=== PATIENT | female | born 1960 | race Caucasian/White ===

== ENCOUNTER → 2016-10-25 | Outpatient (CLI) | payer MEDICARE, MEDICAID | LOC: OD 13:58 | PROVIDERS: ATTEND Specialist | DX: Z79.01 Long term (current) use of anticoagulants (principal) | CPT/HCPCS: 36415; 85610 ==

== ENCOUNTER → 2016-11-22 | Outpatient (CLI) | payer MEDICARE, MEDICAID | LOC: OD 14:06 | PROVIDERS: ATTEND Specialist | DX: I34.1 Nonrheumatic mitral (valve) prolapse (principal); Z79.01 Long term (current) use of anticoagulants | CPT/HCPCS: 36415; 85610 ==

== ENCOUNTER → 2016-12-15 | Outpatient (CLI) | payer MEDICARE, MEDICAID ==
[2016-12-15 14:41] LABS: PROTHROMBIN TIME 26.4 SEC (11.4-15.4)
== END ==
LOC: OD 13:41
PROVIDERS: ATTEND Specialist
DX: Z79.01 Long term (current) use of anticoagulants (principal); I34.1 Nonrheumatic mitral (valve) prolapse
CPT/HCPCS: 36415; 85610

== ENCOUNTER 2017-07-30 12:01 | Inpatient (IN) | payer MEDICARE, MEDICAID ==
--- NOTE | 2017-07-30 14:06 | ER Document Report ---
ED Fall - General Chief Complaint: Fall Stated Complaint: FALL,ANKLE PAIN Time Seen by Provider: 07/30/17 13:57 Mode of Arrival: Medic Information source: Patient, Relative, Emergency Med Personnel TRAVEL OUTSIDE OF THE [place] IN LAST 30 DAYS: No - HPI Occurred: Just prior to arrival Where: Home Context: Fell from standing - PATIENT IS NON-AMBULATORY, WAS MAKING TRANSFER, BEING ASSISTED BY ELDERLY PARENT WHO SLIPPED & PATIENT FELL Associated symptoms: Difficulty breathing. denies: Lost consciousness Location of injury/pain: Ankle - RIGHT, Foot - RIGHT Quality of pain: Sharp Severity: Moderate - Related data Allergies/Adverse Reactions: No Known Allergies Allergy (Verified 10/22/14 04:46) Past Medical History - General Information source: Relative, [facility] Records - Social History Smoking Status: Unknown if Ever Smoked Frequency of alcohol use: None Drug Abuse: None Lives with: Family Family History: Reviewed & Not Pertinent Patient has suicidal ideation: No Patient has homicidal ideation: No - Past Medical History Cardiac Medical History: Reports: Hx Hypertension Pulmonary Medical History: Reports: Hx COPD - ON C-PAP PRN, USES IT EXTENSIVELY EENT Medical History: Reports: None Neurological Medical History: Reports: None Endocrine Medical History: Reports: Hx Hypothyroidism Renal/ Medical History: Denies: Hx Peritoneal Dialysis Malignancy Medical History: Reports: None GI Medical History: Reports: None Musculoskeltal Medical History: Reports Hx Muscular Dystrophy Skin Medical History: Reports None Psychiatric Medical History: Reports: None Past Surgical History: Reports: Hx Section - x2, Hx Cholecystectomy, Hx Thyroid Surgery - Immunizations Hx Diphtheria, Pertussis, Tetanus Vaccination: Yes Review of Systems - Review of Systems Constitutional: No symptoms reported EENT: No symptoms reported Cardiovascular: No symptoms reported. denies: Chest pain Respiratory: See HPI, Short of breath Gastrointestinal: No symptoms reported Genitourinary: No symptoms reported Female Genitourinary: No symptoms reported Musculoskeletal: See HPI Skin: No symptoms reported Neurological/Psychological: Weakness Physical Exam - Vital signs Vitals: Resp 19 07/30/17 12:07 - General General appearance: Appears well, Alert In distress: None - HEENT Head: Normocephalic Eyes: Normal Conjunctiva: Normal Ears: Normal Nasal: Normal Mouth/Lips: Normal Mucous membranes: Normal Pharynx: Normal Neck: Normal - Extremities General upper extremity: Normal inspection General lower extremity: No: Normal inspection - R. FOOT & ANKLE Ankle: Tender - OVER LAT. MALLEOLUS & TALOFIB. LIGAMENTS, Edema Foot: Tender - METATARSALS, Edema Course - Vital Signs Vital signs: Temp Pulse Resp BP Pulse Ox 98.3 F 95 22 H 94 07/30/17 12:16 07/30/17 12:16 07/30/17 13:13 07/30/17 13:13 - Laboratory Result Diagrams: 07/30/17 12:10 07/30/17 12:10 Laboratory results interpreted by me: 07/30/17 07/30/17 07/30/17 12:10 12:10 14:30 RBC 5.93 H Hgb 17.0 H Hct 52.1 H RDW 18.1 H VBG pCO2 74.9 H* VBG HCO3 37.2 H Sodium 146.2 H Carbon Dioxide 37 H Calcium 10.8 H AST 41 H Alkaline Phosphatase 128 H - EKG Interpretation by Me EKG shows normal: Sinus rhythm Rate: Normal Rhythm: NSR [place]/QRS: RBBB, LAHB/LAFB Heart block present: 1st Degree - Consults DR. DYE Time consulted: 15:54 Consulted provider: will come to ER Discharge - Discharge Clinical Impression: Generalized muscle weakness Tibia fracture Qualifiers: Encounter type: initial encounter Tibia location: shaft Fracture type: closed Fracture morphology: transverse Fracture alignment: nondisplaced Laterality: right Qualified Code(s): S82.224A - Nondisplaced transverse fracture of shaft of right tibia, initial encounter for closed fracture Fibula fracture Qualifiers: Encounter type: initial encounter Fibula location: distal Fracture type: closed Fracture morphology: unspecified fracture morphology Laterality: right Qualified Code(s): S82.831A - Other fracture of upper and lower end of right fibula, initial encounter for closed fracture Condition: Good Disposition: ADMITTED INPATIENT
[2017-07-30 14:28] LABS: APPEARANCE,URINE SLIGHTLY-CLOUDY; BILIRUBIN,URINE NEGATIVE (NEGATIVE); COLOR,URINE YELLOW; GLUCOSE, URINE NEGATIVE (NEGATIVE); KETONES,URINE NEGATIVE (NEGATIVE); LEUKOCYTE ESTERASE,URINE NEGATIVE (NEGATIVE); NITRITE,URINE NEGATIVE (NEGATIVE); PROTEIN,URINE NEGATIVE (NEGATIVE); URINE SPECIFIC GRAVITY 1.011; UROBILINOGEN,URINE NEGATIVE mg/dL (<2.0)
[2017-07-30 14:39] LABS: VENOUS BLOOD BASE EXCESS 7.4 mmol/L; VENOUS BLOOD HCO3 37.2 mmol/L (20-32); VENOUS BLOOD PH 7.31 (7.30-7.42)
[2017-07-30 14:41] LABS: VENOUS BLOOD PCO2 74.9 mmHg (35-63)
[2017-07-30 14:44] LABS: ABSOLUTE EOSINOPHILS # (AUTO) 0.2 10^3/uL (0.0-0.6); ABSOLUTE MONOCYTES (AUTO) 0.8 10^3/uL (0.1-1.4); ABSOLUTE NEUT (AUTO) 5.4 10^3/uL (1.7-8.2); BASOPHILS % (AUTO) 0.4 % (0-2); EOSINOPHILS % (AUTO) 1.8 % (0-6); HEMATOCRIT 52.1 % (36.0-47.0); LYMPHOCYTES % (AUTO) 31.7 % (13-45); MEAN CORPUSCULAR HEMOGLOBIN 28.7 pg (27.0-33.4); MEAN CORPUSCULAR HGB CONC 32.7 g/dL (32.0-36.0); MEAN CORPUSCULAR VOLUME 88 fl (80-97); MONOCYTES % (AUTO) 8.7 % (3-13); PLATELET COUNT 276 10^3/uL (150-450); RED BLOOD COUNT 5.93 10^6/uL (3.72-5.28); RED CELL DISTRIBUTION WIDTH 18.1 % (11.5-14.0); SEGMENTED NEUTROPHILS % (AUTO) 57.4 % (42-78); TOTAL CELLS COUNTED % (AUTO) 100 %; WHITE BLOOD COUNT 9.5 10^3/uL (4.0-10.5)
[2017-07-30] MEDS ORDERED: HYDROCODONE/ACETAMINOPHEN 5-325 MG TABLET PO ONE (14:47)
[2017-07-30 14:50] LABS: ALANINE AMINOTRANSFERASE 31 U/L (9-52); ALBUMIN 4.1 g/dL (3.5-5.0); ALKALINE PHOSPHATASE 128 U/L (38-126); ANION GAP 9 (5-19); ASPARTATE AMINO TRANSFERASE 41 U/L (14-36); BILIRUBIN,DIRECT 0.3 mg/dL (0.0-0.4); BILIRUBIN,TOTAL 0.5 mg/dL (0.2-1.3); BLOOD UREA NITROGEN 17 mg/dL (7-20); CALCIUM 10.8 mg/dL (8.4-10.2); CARBON DIOXIDE 37 mmol/L (22-30); CHLORIDE 100 mmol/L (98-107); CREATINE KINASE 53 U/L (30-135); GLUCOSE 102 mg/dL (75-110); POTASSIUM 3.9 mmol/L (3.6-5.0); SODIUM 146.2 mmol/L (137-145); TOTAL PROTEIN 7.7 g/dL (6.3-8.2)
[2017-07-30 15:06] LABS: CREATINE KINASE MB 1.85 ng/mL (<4.55); NT PRO BNP 90 pg/mL (5-900); TROPONIN I < 0.012 ng/mL
--- NOTE | 2017-07-30 15:15 | RADIOLOGY REPORT (SQ) ---
EXAM DESCRIPTION: CHEST SINGLE VIEW COMPLETED DATE/TIME: 07/30/2017 3:05 pm REASON FOR STUDY: DYSPNEA, HYPOXEMIA COMPARISON: 10/23/2014 EXAM PARAMETERS: NUMBER OF VIEWS: One view. TECHNIQUE: Single frontal radiographic view of the chest acquired. RADIATION DOSE: NA LIMITATIONS: None. FINDINGS: LUNGS AND PLEURA: No opacities, masses or pneumothorax. No pleural effusion. MEDIASTINUM AND HILAR STRUCTURES: No masses. Contour normal. HEART AND VASCULAR STRUCTURES: Heart stable in size. Normal vasculature. BONES: No acute findings. HARDWARE: None in the chest. OTHER: No other significant finding. IMPRESSION: NO ACUTE RADIOGRAPHIC FINDING IN THE CHEST. NO SIGNIFICANT CHANGE FROM PRIOR STUDY. TECHNICAL DOCUMENTATION: JOB ID: [id number] [employer]- All Rights Reserved
--- NOTE | 2017-07-30 15:16 | RADIOLOGY REPORT (SQ) ---
EXAM DESCRIPTION: FOOT RIGHT COMPLETE; ANKLE RIGHT COMPLETE COMPLETED DATE/TIME: 07/30/2017 3:05 pm REASON FOR STUDY: TRAUMA, PAIN COMPARISON: None. NUMBER OF VIEWS: Two views. TECHNIQUE: AP and lateral radiographic images acquired of the right foot and right ankle. LIMITATIONS: None. FINDINGS: MINERALIZATION: Osteopenia. BONES: Comminuted and mildly displaced fracture through the distal tibial metadiaphysis. Mildly disp laced horizontal fracture through the distal fibular metadiaphysis. Bones otherwise appear to be int act JOINTS: No effusions. SOFT TISSUES: Diffuse soft tissue swelling. OTHER: No other significant finding. IMPRESSION: DISTAL TIBIA AND FIBULAR FRACTURES ABOVE. TECHNICAL DOCUMENTATION: JOB ID: [id number] [employer]- All Rights Reserved
--- NOTE | 2017-07-30 15:16 | RADIOLOGY REPORT (SQ) ---
EXAM DESCRIPTION: FOOT RIGHT COMPLETE; ANKLE RIGHT COMPLETE COMPLETED DATE/TIME: 07/30/2017 3:05 pm REASON FOR STUDY: TRAUMA, PAIN COMPARISON: None. NUMBER OF VIEWS: Two views. TECHNIQUE: AP and lateral radiographic images acquired of the right foot and right ankle. LIMITATIONS: None. FINDINGS: MINERALIZATION: Osteopenia. BONES: Comminuted and mildly displaced fracture through the distal tibial metadiaphysis. Mildly disp laced horizontal fracture through the distal fibular metadiaphysis. Bones otherwise appear to be int act JOINTS: No effusions. SOFT TISSUES: Diffuse soft tissue swelling. OTHER: No other significant finding. IMPRESSION: DISTAL TIBIA AND FIBULAR FRACTURES ABOVE. TECHNICAL DOCUMENTATION: JOB ID: [id number] [employer] All Rights Reserved
[2017-07-30] MEDS ORDERED: OXYCODONE-ACETAMINOPHEN 5-325 MG TABLET PO ONE (16:11)
[2017-07-30] MEDS ORDERED: ONDANSETRON HCL INJ/PF 4 MG/2 ML SDV IV PRN (16:46)
[2017-07-30] MEDS ORDERED: ONDANSETRON 4 MG TAB.RAPDIS PO PRN (16:46)
[2017-07-30] MEDS ORDERED: ALBUTEROL SULFATE 0.083% NEB 2.5 MG/3 ML AMPUL NEB PRN (16:46)
--- NOTE | 2017-07-30 17:15 | PDOC H&P ---
History of Present Illness Admission Date/PCP: 07/30/17 Dr. 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 Chronic back pain Skin Medical History: Reports: None Psychiatric Medical History: Reports: None Hematology: Reports: Other - DVT, pulmonary embolism on Coumadin Past Surgical History Past Surgical History: Reports: Section - x2, Cholecystectomy Social History Information Source: Patient Lives with: Family Smoking Status: Never Smoker Hx Recreational Drug Use: No Hx Prescription Drug Abuse: No Family History Family History: Reviewed & Not Pertinent Parental Family History Reviewed: Yes Children Family History Reviewed: Yes Sibling(s) Family History Reviewed.: Yes - Brother and niece also have muscular dystrophy Medication/Allergy Home Medications: Unobtainable 10/22/14 Allergies/Adverse Reactions: No Known Allergies Allergy (Verified 10/22/14 04:46) Review of Systems Constitutional: PRESENT: as per HPI. ABSENT: fever(s), headache(s), night sweats Ears: ABSENT: hearing changes Nose, Mouth, and Throat: ABSENT: mouth pain, sore throat Cardiovascular: ABSENT: chest pain, edema, orthropnea, palpitations Respiratory: ABSENT: cough, hemoptysis Gastrointestinal: ABSENT: abdominal pain, coffee ground emesis, diarrhea, heartburn, hematemesis, vomiting Genitourinary: ABSENT: dysuria Musculoskeletal: PRESENT: back pain, muscle weakness - Chronic Integumentary: ABSENT: erythema, rash Neurological: ABSENT: abnormal speech, convulsions, syncope Psychiatric: ABSENT: depression, hallucinations Endocrine: ABSENT: cold intolerance, heat intolerance Hematologic/Lymphatic: ABSENT: lymphadenopathy Physical Exam Vital Signs: Temp Pulse Resp BP Pulse Ox 98.3 F 95 17 92 07/30/17 12:16 07/30/17 12:16 07/30/17 16:00 07/30/17 16:00 Intake & Output 07/29/17 07/30/17 07/31/17 06:59 06:59 06:59 Weight 122 kg Additional comments: Obese, middle-aged female lying in bed on BiPAP HEENT: Pupils equal reactive to light moist pink oropharyngeal mucosa with no lesions no icterus no pallor normal external ears and nose Neck: Supple, obese, no JVD, trachea is midline Cardiac: S1-S2 regular no peripheral edema no calf tenderness no cyanosis Respiratory: No wheezing or crackles heard Abdomen: Soft, obese, no focal tenderness, normal bowel sounds Extremities: Right ankle is in a cast Neurologic: Awake and alert oriented 3 Results Laboratory Results: 07/30/17 12:10 07/30/17 12:10 07/30/17 07/30/17 07/30/17 12:10 12:10 14:15 WBC 9.5 RBC 5.93 H Hgb 17.0 H Hct 52.1 H MCV 88 MCH 28.7 MCHC 32.7 RDW 18.1 H Plt Count 276 Seg Neutrophils % 57.4 Lymphocytes % 31.7 Monocytes % 8.7 Eosinophils % 1.8 Basophils % 0.4 Absolute Neutrophils 5.4 Absolute Lymphocytes 3.0 Absolute Monocytes 0.8 Absolute Eosinophils 0.2 Absolute Basophils 0.0 VBG pH VBG pCO2 VBG HCO3 VBG Base Excess Sodium 146.2 H Potassium 3.9 Chloride 100 Carbon Dioxide 37 H Anion Gap 9 BUN 17 Creatinine 0.56 Est GFR ( Amer) > 60 Est GFR (Non-Af Amer) > 60 Glucose 102 Calcium 10.8 H Total Bilirubin 0.5 AST 41 H ALT 31 Alkaline Phosphatase 128 H Total Protein 7.7 Albumin 4.1 Urine Color YELLOW Urine Appearance SLIGHTLY-CLOUDY Urine pH 6.0 Ur Specific [place] 1.011 Urine Protein NEGATIVE Urine Glucose (UA) NEGATIVE Urine Ketones NEGATIVE Urine Blood NEGATIVE Urine Nitrite NEGATIVE Ur Leukocyte Esterase NEGATIVE Urine WBC (Auto) 1 Urine RBC (Auto) 0 07/30/17 14:30 WBC RBC Hgb Hct MCV MCH MCHC RDW Plt Count Seg Neutrophils % Lymphocytes % Monocytes % Eosinophils % Basophils % Absolute Neutrophils Absolute Lymphocytes Absolute Monocytes Absolute Eosinophils Absolute Basophils VBG pH 7.31 VBG pCO2 74.9 H* VBG HCO3 37.2 H VBG Base Excess 7.4 Sodium Potassium Chloride Carbon Dioxide Anion Gap BUN Creatinine Est GFR ( Amer) Est GFR (Non-Af Amer) Glucose Calcium Total Bilirubin AST ALT Alkaline Phosphatase Total Protein Albumin Urine Color Urine Appearance Urine pH Ur Specific [place] Urine Protein Urine Glucose (UA) Urine Ketones Urine Blood Urine Nitrite Ur Leukocyte Esterase Urine WBC (Auto) Urine RBC (Auto) 07/30/17 07/30/17 12:10 12:10 Creatine Kinase 53 CK-MB (CK-2) 1.85 Troponin I < 0.012 NT-Pro-B Natriuret Pep 90 Impressions: Chest X-Ray 07/30/17 13:57 IMPRESSION: NO ACUTE RADIOGRAPHIC FINDING IN THE CHEST. NO SIGNIFICANT CHANGE FROM PRIOR STUDY. Ankle X-Ray 07/30/17 13:58 IMPRESSION: DISTAL TIBIA AND FIBULAR FRACTURES ABOVE. Foot X-Ray 07/30/17 13:58 IMPRESSION: DISTAL TIBIA AND FIBULAR FRACTURES ABOVE. Assessment & Plan - Diagnosis (1) Ankle fracture, right Is this a current diagnosis for this admission?: Yes Plan: Pain control. Orthopedic evaluation requested. (2) Chronic back pain Qualifiers: Back pain location: low back pain Sciatica presence: with sciatica Is this a current diagnosis for this admission?: Yes Plan: Continue analgesics. Continue Lyrica (3) Acute hypercapnic respiratory failure Is this a current diagnosis for this admission?: Yes Plan: Due to muscular dystrophy. Patient requests to be a DO NOT INTUBATE DO NOT RESUSCITATE. She is okay with elective intubation if needed for surgery Continue BiPAP. (4) History of pulmonary embolism Is this a current diagnosis for this admission?: Yes Plan: See below. (5) Chronic anticoagulation Is this a current diagnosis for this admission?: Yes Plan: INR stat ordered. Results pending. She has a history of DVT and PE. (6) Generalized muscle weakness Is this a current diagnosis for this admission?: Yes Plan: Myotonic muscular dystrophy wheelchair-bound. Fall precautions. (7) Hypothyroid Is this a current diagnosis for this admission?: Yes Plan: Continue Synthroid - Time Time Spent: 50 to 70 Minutes - Inpatient Certification Medical Necessity: Significant Comorbidiites Make Outpatient Treatment Too Risky , Need for Pain Control, Other - Acute hypercapnic respiratory failure requiring BiPAP.
[2017-07-30 17:47] LABS: MAGNESIUM 2.2 mg/dL (1.6-2.3); PHOSPHORUS 3.5 mg/dL (2.5-4.5)
[2017-07-30 18:13] LABS: INTERNATIONAL RATION (INR) 2.33; PROTHROMBIN TIME 26.8 SEC (11.4-15.4)
[2017-07-30 18:14] LABS: PARTIAL THROMBOPLASTIN TIME 54.7 SEC (23.5-35.8)
[2017-07-30] MEDS: DOCUSATE SODIUM 100 MG CAPSULE PO SCH (18:35)
[2017-07-30] MEDS ORDERED: LEVOTHYROXINE SODIUM 0.1 MG TABLET PO ONE (19:00)
[2017-07-30] MEDS ORDERED: WARFARIN SODIUM 7.5 MG TABLET PO ONE (19:33)
[2017-07-30] MEDS ORDERED: PREGABALIN 100 MG CAPSULE PO ONE (20:00)
--- NOTE | 2017-07-30 20:50 | EKG REPORT ---
SEVERITY:- ABNORMAL ECG - INCOMPLETE ANALYSIS DUE TO MISSING DATA IN PRECORDIAL LEAD(S) SINUS OR ECTOPIC ATRIAL RHYTHM FIRST DEGREE AV BLOCK RBBB AND LAFB : Confirmed by: Spike Ragsdale MD 30-Jul-2017 20:49:38
[2017-07-30] MEDS: OXYCODONE HCL IR 5 MG TABLET PO PRN (21:59)
[2017-07-30] MEDS: MORPHINE SULFATE 10 MG/ML INJ IV PRN (23:44)
[2017-07-31 01:27] LABS: AMORPHOUS SEDIMENT,URINE TRACE /HPF; APPEARANCE,URINE SLIGHTLY-CLOUDY; BILIRUBIN,URINE NEGATIVE (NEGATIVE); COLOR,URINE YELLOW; GLUCOSE, URINE NEGATIVE (NEGATIVE); KETONES,URINE NEGATIVE (NEGATIVE); LEUKOCYTE ESTERASE,URINE NEGATIVE (NEGATIVE); NITRITE,URINE NEGATIVE (NEGATIVE); PROTEIN,URINE NEGATIVE (NEGATIVE); URINE SPECIFIC GRAVITY 1.018; UROBILINOGEN,URINE NEGATIVE mg/dL (<2.0)
[2017-07-31] MEDS: MORPHINE SULFATE 10 MG/ML INJ IV PRN ×4 (03:49→19:56)
[2017-07-31 05:15] LABS: HEMATOCRIT 49.2 % (36.0-47.0); HEMOGLOBIN 15.9 g/dL (12.0-15.5); MEAN CORPUSCULAR HEMOGLOBIN 28.2 pg (27.0-33.4); MEAN CORPUSCULAR HGB CONC 32.4 g/dL (32.0-36.0); MEAN CORPUSCULAR VOLUME 87 fl (80-97); PLATELET COUNT 276 10^3/uL (150-450); RED BLOOD COUNT 5.65 10^6/uL (3.72-5.28); RED CELL DISTRIBUTION WIDTH 17.3 % (11.5-14.0); WHITE BLOOD COUNT 12.4 10^3/uL (4.0-10.5)
[2017-07-31 05:17] LABS: INTERNATIONAL RATION (INR) 2.29; PROTHROMBIN TIME 26.4 SEC (11.4-15.4)
[2017-07-31] MEDS: LEVOTHYROXINE SODIUM 0.1 MG TABLET PO SCH (05:26)
[2017-07-31] MEDS: LANSOPRAZOLE 15 MG TAB.RAP.DR PO SCH (05:26)
[2017-07-31 05:42] LABS: ALANINE AMINOTRANSFERASE 32 U/L (9-52); ALBUMIN 3.7 g/dL (3.5-5.0); ALKALINE PHOSPHATASE 115 U/L (38-126); ANION GAP 10 (5-19); ASPARTATE AMINO TRANSFERASE 32 U/L (14-36); BILIRUBIN,DIRECT 0.2 mg/dL (0.0-0.4); BILIRUBIN,TOTAL 0.5 mg/dL (0.2-1.3); BLOOD UREA NITROGEN 12 mg/dL (7-20); CALCIUM 10.2 mg/dL (8.4-10.2); CARBON DIOXIDE 32 mmol/L (22-30); CHLORIDE 102 mmol/L (98-107); GLUCOSE 99 mg/dL (75-110); MAGNESIUM 2.1 mg/dL (1.6-2.3); PHOSPHORUS 2.3 mg/dL (2.5-4.5); POTASSIUM 4.4 mmol/L (3.6-5.0); SODIUM 143.9 mmol/L (137-145); TOTAL PROTEIN 6.3 g/dL (6.3-8.2)
[2017-07-31 06:00] LABS: ARTERIAL BLOOD BASE EXCESS 5.1 mmol/L; ARTERIAL BLOOD FIO2 60%; ARTERIAL BLOOD H2CO3 1.26 mmol/L (1.05-1.35); ARTERIAL BLOOD HCO3 29.4 mmol/L (20-26); ARTERIAL BLOOD O2 SATURATION 88.3 % (94-98); ARTERIAL BLOOD PH 7.46 (7.35-7.45); ARTERIAL BLOOD PO2 51.4 mmHg (80-100); ARTERIAL BLOOD TOTAL CO2 30.7 mmol/L (21-25)
[2017-07-31] MEDS: OXYCODONE HCL IR 5 MG TABLET PO PRN (06:16)
--- NOTE | 2017-07-31 07:34 | PDOC CONSULTATION ---
History of Present Illness Admission Date/PCP: 07/30/17 16:46 Patient complains of: Right ankle pain History of Present Illness: CARLO KAUR is a 57 year old female with a history of muscular dystrophy. Earlier today while she was trying to transfer from bed to the wheelchair she fell and sustained a fall onto her right ankle. Patient had significant pain at the time of injury and was brought to the emergency room where x-rays demonstrated a fracture and she was placed in a splint. Since application of the splint the pain has improved. She denies new numbness or tingling. Pain currently 4/10. Patient is wheelchair bound and a nonambulator secondary to her muscular dystrophy. Past Medical History Cardiac Medical History: Reports: Hypertension - History of stress-induced cardiomyopathy in October 2014 Pulmonary Medical History: Reports: Chronic Obstructive Pulmonary Disease (COPD ) - ON C-PAP PRN, USES IT EXTENSIVELY, Respiratory Failure - Due to muscular dystrophy CPAP as needed EENT Medical History: Reports: None, Other - DVT, pulmonary embolism on Coumadin Neurological Medical History: Reports: None Endocrine Medical History: Reports: Hypothyroidism Malignancy Medical History: Reports: None GI Medical History: Reports: None Musculoskeltal Medical History: Reports: Other - Myotonic muscular dystrophy Chronic back pain Skin Medical History: Reports: None Psychiatric Medical History: Reports: None Denies: Depression Hematology: Reports: Other - DVT, pulmonary embolism on Coumadin Past Surgical History Past Surgical History: Reports: Section - x2, Cholecystectomy Social History Lives with: Family Smoking Status: Former Smoker Frequency of Alcohol Use: None Hx Recreational Drug Use: No Hx Prescription Drug Abuse: No Family History Family History: Reviewed & Not Pertinent Parental Family History Reviewed: No Children Family History Reviewed: NA Sibling(s) Family History Reviewed.: NA Medication/Allergy Home Medications: Unobtainable 10/22/14 Allergies/Adverse Reactions: No Known Allergies Allergy (Verified 10/22/14 04:46) Review of Systems All systems: as per PMH Constitutional: ABSENT: chills, fever(s), headache(s), weight gain, weight loss Eyes: ABSENT: visual disturbances Ears: ABSENT: hearing changes Cardiovascular: PRESENT: other - Shortness of breath requiring CPAP. ABSENT: dyspnea on exertion, edema, orthropnea, palpitations Respiratory: ABSENT: cough, hemoptysis Gastrointestinal: ABSENT: abdominal pain, constipation, diarrhea, hematemesis, hematochezia, nausea, vomiting Genitourinary: ABSENT: dysuria, hematuria Musculoskeletal: PRESENT: as per HPI Integumentary: ABSENT: rash, wounds Neurological: ABSENT: abnormal gait, abnormal speech, confusion, dizziness, focal weakness, syncope Psychiatric: ABSENT: anxiety, depression, homidical ideation, suicidal ideation Endocrine: ABSENT: cold intolerance, heat intolerance, menstrual abnormalities, polydipsia, polyuria Hematologic/Lymphatic: ABSENT: easy bleeding, easy bruising, lymphadenopathy Physical Exam Vital Signs: Temp Pulse Resp BP Pulse Ox 99.0 F 64 16 98/54 L 89 L 07/31/17 04:05 07/31/17 04:05 07/31/17 04:05 07/31/17 04:05 07/31/17 04:05 Intake & Output 07/30/17 07/31/17 08/01/17 06:59 06:59 06:59 Intake Total 110 Output Total 500 Balance -390 Weight 122.1 kg General appearance: PRESENT: no acute distress, well-developed, well-nourished Head exam: PRESENT: atraumatic, normocephalic Eye exam: PRESENT: conjunctiva pink, EOMI, PERRLA. ABSENT: scleral icterus Ear exam: PRESENT: normal external ear exam Mouth exam: PRESENT: moist, tongue midline Teeth exam: PRESENT: poor dentation Neck exam: PRESENT: full ROM. ABSENT: carotid bruit, JVD, lymphadenopathy, thyromegaly Respiratory exam: PRESENT: other - Patient on CPAP. Cardiovascular exam: PRESENT: RRR. ABSENT: diastolic murmur, rubs, systolic murmur Pulses: PRESENT: normal dorsalis pedis pul, +2 pedal pulses bilateral Vascular exam: PRESENT: normal capillary refill GI/Abdominal exam: PRESENT: normal bowel sounds, soft. ABSENT: distended, guarding, mass, organolmegaly, rebound, tenderness Rectal exam: PRESENT: deferred Musculoskeletal exam: PRESENT: other - Right ankle: 3 sided splint intact. Cap refill less than 2 seconds. Intact flexion extension of the toes. Sensation intact to light touch. No pain with passive stretch. Neurological exam: PRESENT: alert, awake, oriented to person, oriented to place , oriented to time, oriented to situation, CN II-XII grossly intact. ABSENT: motor sensory deficit Psychiatric exam: PRESENT: appropriate affect, normal mood. ABSENT: homicidal ideation, suicidal ideation Skin exam: PRESENT: dry, intact, warm. ABSENT: cyanosis, rash Results Laboratory Results: 07/31/17 04:29 07/31/17 04:29 07/31/17 07/31/17 07/31/17 00:35 04:29 04:29 WBC 12.4 H RBC 5.65 H Hgb 15.9 H Hct 49.2 H MCV 87 MCH 28.2 MCHC 32.4 RDW 17.3 H Plt Count 276 Carbonic Acid HCO3/H2CO3 Ratio ABG pH ABG pCO2 ABG pO2 ABG HCO3 ABG O2 Saturation ABG Base Excess FiO2 Sodium 143.9 Potassium 4.4 Chloride 102 Carbon Dioxide 32 H Anion Gap 10 BUN 12 Creatinine 0.51 L Est GFR ( Amer) > 60 Est GFR (Non-Af Amer) > 60 Glucose 99 Calcium 10.2 Phosphorus 2.3 L Magnesium 2.1 Total Bilirubin 0.5 AST 32 ALT 32 Alkaline Phosphatase 115 Total Protein 6.3 Albumin 3.7 TSH Urine Color YELLOW Urine Appearance SLIGHTLY-CLOUDY Urine pH 7.0 Ur Specific [place] 1.018 Urine Protein NEGATIVE Urine Glucose (UA) NEGATIVE Urine Ketones NEGATIVE Urine Blood NEGATIVE Urine Nitrite NEGATIVE Ur Leukocyte Esterase NEGATIVE Urine WBC (Auto) 1 07/31/17 07/31/17 04:29 05:45 WBC RBC Hgb Hct MCV MCH MCHC RDW Plt Count Carbonic Acid 1.26 HCO3/H2CO3 Ratio 23:1 ABG pH 7.46 H ABG pCO2 42.0 ABG pO2 51.4 L ABG HCO3 29.4 H ABG O2 Saturation 88.3 L ABG Base Excess 5.1 FiO2 60% Sodium Potassium Chloride Carbon Dioxide Anion Gap BUN Creatinine Est GFR ( Amer) Est GFR (Non-Af Amer) Glucose Calcium Phosphorus Magnesium Total Bilirubin AST ALT Alkaline Phosphatase Total Protein Albumin TSH 0.77 Urine Color Urine Appearance Urine pH Ur Specific [place] Urine Protein Urine Glucose (UA) Urine Ketones Urine Blood Urine Nitrite Ur Leukocyte Esterase Urine WBC (Auto) Impressions: Chest X-Ray 07/30/17 13:57 IMPRESSION: NO ACUTE RADIOGRAPHIC FINDING IN THE CHEST. NO SIGNIFICANT CHANGE FROM PRIOR STUDY. Ankle X-Ray 07/30/17 13:58 IMPRESSION: DISTAL TIBIA AND FIBULAR FRACTURES ABOVE. Foot X-Ray 12/24/17 13:58 IMPRESSION: DISTAL TIBIA AND FIBULAR FRACTURES ABOVE. Status: Image reviewed by me - I have reviewed patient's radiographs which demonstrate disuse osteopenia with nondisplaced transverse fracture of the distal tibia/fibula. Assessment & Plan - Diagnosis (1) Closed fracture of right distal tibia Qualifiers: Encounter type: initial encounter Fracture alignment: nondisplaced Is this a current diagnosis for this admission?: Yes Plan: Given nondisplacement, nonambulatory status, patient's pulmonary history she does not meet indications for operative intervention. She will maintain nonweightbearing in the right lower extremity. Continue elevation. Would recommend follow-up in 10-14 days in my office to transition her to a short leg cast. Schedule Follow Up w/ Dr. Vinnie Martinez @ [facility] to be seen in 10-14 days or as scheduled [place]:
[2017-07-31] MEDS ORDERED: OXYCODONE HCL SR 10 MG TABLET PO PRN (10:08)
[2017-07-31] MEDS: PREGABALIN 100 MG CAPSULE PO SCH ×3 (10:12→17:51)
[2017-07-31] MEDS: DOCUSATE SODIUM 100 MG CAPSULE PO SCH ×2 (10:12→17:51)
[2017-07-31] MEDS ORDERED: BISACODYL 5 MG TABEC PO PRN (10:44)
[2017-07-31] MEDS: OXYCODONE HCL SR 10 MG TABLET PO SCH ×2 (11:58→22:43)
--- NOTE | 2017-07-31 12:41 | PDOC PROGRESS REPORT ---
Subjective Progress Note for:: 07/31/17 Subjective:: 57-year-old female with a history of muscular dystrophy who fell as she was trying to transfer from her wheelchair and sustained a right ankle fracture. She uses BiPAP at home as needed for respiratory muscle fatigue, and is on 4 L by nasal cannula at other times. A splint was placed in the emergency room. She was evaluated by Dr. martinez from orthopedics and he recommended nonweightbearing, and leg elevation and to follow-up in 10-14 days in his office for a short leg cast. Pain is not well controlled. I will go ahead and make some adjustments to her oxycodone. I will add OxyContin. Reason For Visit: ACUTE HYPERCAPNIC RESPIRATORY FAILURE,MUSCULAR Physical Exam Vital Signs: Temp Pulse Resp BP Pulse Ox 99.3 F 62 22 H 111/61 90 L 07/31/17 11:50 07/31/17 11:50 07/31/17 11:50 07/31/17 11:50 07/31/17 11:50 Intake & Output 07/30/17 07/31/17 08/01/17 06:59 06:59 06:59 Intake Total 110 Output Total 500 Balance -390 Weight 122.1 kg Additional comments: Middle-aged female lying in bed not in acute distress Lungs: Clear to auscultation bilaterally normal respiratory effort Cardiac: S1-S2 regular no peripheral edema no calf tenderness no cyanosis Abdomen: Soft, no focal tenderness, normal bowel sounds skin: Warm and dry Results Laboratory Results: 07/31/17 04:29 07/31/17 04:29 07/31/17 07/31/17 07/31/17 00:35 04:29 04:29 WBC 12.4 H RBC 5.65 H Hgb 15.9 H Hct 49.2 H MCV 87 MCH 28.2 MCHC 32.4 RDW 17.3 H Plt Count 276 Carbonic Acid HCO3/H2CO3 Ratio ABG pH ABG pCO2 ABG pO2 ABG HCO3 ABG O2 Saturation ABG Base Excess FiO2 Sodium 143.9 Potassium 4.4 Chloride 102 Carbon Dioxide 32 H Anion Gap 10 BUN 12 Creatinine 0.51 L Est GFR ( Amer) > 60 Est GFR (Non-Af Amer) > 60 Glucose 99 Calcium 10.2 Phosphorus 2.3 L Magnesium 2.1 Total Bilirubin 0.5 AST 32 ALT 32 Alkaline Phosphatase 115 Total Protein 6.3 Albumin 3.7 TSH Urine Color YELLOW Urine Appearance SLIGHTLY-CLOUDY Urine pH 7.0 Ur Specific [place] 1.018 Urine Protein NEGATIVE Urine Glucose (UA) NEGATIVE Urine Ketones NEGATIVE Urine Blood NEGATIVE Urine Nitrite NEGATIVE Ur Leukocyte Esterase NEGATIVE Urine WBC (Auto) 1 07/31/17 07/31/17 04:29 05:45 WBC RBC Hgb Hct MCV MCH MCHC RDW Plt Count Carbonic Acid 1.26 HCO3/H2CO3 Ratio 23:1 ABG pH 7.46 H ABG pCO2 42.0 ABG pO2 51.4 L ABG HCO3 29.4 H ABG O2 Saturation 88.3 L ABG Base Excess 5.1 FiO2 60% Sodium Potassium Chloride Carbon Dioxide Anion Gap BUN Creatinine Est GFR ( Amer) Est GFR (Non-Af Amer) Glucose Calcium Phosphorus Magnesium Total Bilirubin AST ALT Alkaline Phosphatase Total Protein Albumin TSH 0.77 Urine Color Urine Appearance Urine pH Ur Specific [place] Urine Protein Urine Glucose (UA) Urine Ketones Urine Blood Urine Nitrite Ur Leukocyte Esterase Urine WBC (Auto) Impressions: Chest X-Ray 07/30/17 13:57 IMPRESSION: NO ACUTE RADIOGRAPHIC FINDING IN THE CHEST. NO SIGNIFICANT CHANGE FROM PRIOR STUDY. Ankle X-Ray 07/30/17 13:58 IMPRESSION: DISTAL TIBIA AND FIBULAR FRACTURES ABOVE. Foot X-Ray 07/30/17 13:58 IMPRESSION: DISTAL TIBIA AND FIBULAR FRACTURES ABOVE. Assessment & Plan - Diagnosis (1) Ankle fracture, right Is this a current diagnosis for this admission?: Yes Plan: Continue to adjust medications for optimal pain control (2) Chronic back pain Qualifiers: Back pain location: low back pain Sciatica presence: with sciatica Is this a current diagnosis for this admission?: Yes (3) Acute hypercapnic respiratory failure Is this a current diagnosis for this admission?: Yes Plan: BiPAP as needed. (4) History of pulmonary embolism Is this a current diagnosis for this admission?: Yes Plan: Monitor INR. Continue Coumadin. (5) Chronic anticoagulation Is this a current diagnosis for this admission?: Yes Plan: . (6) Generalized muscle weakness Is this a current diagnosis for this admission?: Yes Plan: Myotonic muscular dystrophy wheelchair-bound. Fall precautions. (7) Hypothyroid Is this a current diagnosis for this admission?: Yes Plan: Continue Synthroid - Time Time Spent with patient: 25-34 minutes - Plan Summary Plan Summary: She will likely need subacute rehabilitation since she has no support at home and is wheelchair bound at baseline.
[2017-07-31] MEDS ORDERED: WARFARIN SODIUM 5 MG TABLET PO SCH (22:00)
[2017-08-01] MEDS: MORPHINE SULFATE 10 MG/ML INJ IV PRN ×4 (00:01→18:05)
[2017-08-01 04:47] LABS: MEAN CORPUSCULAR HEMOGLOBIN 28.3 pg (27.0-33.4); MEAN CORPUSCULAR HGB CONC 32.6 g/dL (32.0-36.0); MEAN CORPUSCULAR VOLUME 87 fl (80-97); PLATELET COUNT 251 10^3/uL (150-450); RED BLOOD COUNT 5.65 10^6/uL (3.72-5.28); RED CELL DISTRIBUTION WIDTH 17.6 % (11.5-14.0); WHITE BLOOD COUNT 11.2 10^3/uL (4.0-10.5)
[2017-08-01 04:57] LABS: INTERNATIONAL RATION (INR) 2.54; PROTHROMBIN TIME 28.6 SEC (11.4-15.4)
[2017-08-01 05:15] LABS: ANION GAP 8 (5-19); BLOOD UREA NITROGEN 16 mg/dL (7-20); CALCIUM 10.1 mg/dL (8.4-10.2); CARBON DIOXIDE 35 mmol/L (22-30); CHLORIDE 103 mmol/L (98-107); GLUCOSE 112 mg/dL (75-110); MAGNESIUM 2.3 mg/dL (1.6-2.3); PHOSPHORUS 2.9 mg/dL (2.5-4.5); SODIUM 145.5 mmol/L (137-145)
[2017-08-01 05:34] LABS: POTASSIUM 5.5 mmol/L (3.6-5.0)
[2017-08-01] MEDS: LEVOTHYROXINE SODIUM 0.1 MG TABLET PO SCH (07:17)
[2017-08-01] MEDS: LANSOPRAZOLE 15 MG TAB.RAP.DR PO SCH (07:17)
[2017-08-01] MEDS: DOCUSATE SODIUM 100 MG CAPSULE PO SCH ×2 (09:42→17:40)
[2017-08-01] MEDS: OXYCODONE HCL SR 10 MG TABLET PO SCH ×2 (09:42→21:57)
[2017-08-01] MEDS: PREGABALIN 100 MG CAPSULE PO SCH ×3 (09:43→17:40)
--- NOTE | 2017-08-01 09:52 | PDOC PROGRESS REPORT ---
Subjective Progress Note for:: 08/01/17 Subjective:: 57-year-old female with a history of muscular dystrophy who fell as she was trying to transfer from her wheelchair and sustained a right ankle fracture. She uses BiPAP at home as needed for respiratory muscle fatigue, and is on 4 L by nasal cannula at other times. A splint was placed in the emergency room. She was evaluated by Dr. martinez from orthopedics and he recommended nonweightbearing, and leg elevation and to follow-up in 10-14 days in his office for a short leg cast. Pain is somewhat better controlled with addition of OxyContin. I will increase the dose of OxyContin to eliminate morphine use. She will need subacute rehabilitation since she has no support at home and is wheelchair bound and now has sustained an ankle fracture. Case management has been consulted. Reason For Visit: ACUTE HYPERCAPNIC RESPIRATORY FAILURE,MUSCULAR Physical Exam Vital Signs: Temp Pulse Resp BP Pulse Ox 98.8 F 62 16 105/90 H 92 08/01/17 07:24 08/01/17 08:55 08/01/17 08:55 08/01/17 07:24 08/01/17 08:55 Intake & Output 07/31/17 08/01/17 08/02/17 06:59 06:59 06:59 Intake Total 110 500 Output Total 500 300 Balance -390 200 Weight 122.1 kg 121.7 kg 121.7 kg Additional comments: Middle-aged female lying in bed not in acute distress, she is on BiPAP. Lungs: Clear to auscultation bilaterally normal respiratory effort Cardiac: S1-S2 regular no peripheral edema no calf tenderness no cyanosis Abdomen: Soft, no focal tenderness, normal bowel sounds Right ankle in splint. Results Laboratory Results: 08/01/17 04:00 08/01/17 04:00 08/01/17 08/01/17 04:00 04:00 WBC 11.2 H RBC 5.65 H Hgb 16.0 H Hct 49.0 H MCV 87 MCH 28.3 MCHC 32.6 RDW 17.6 H Plt Count 251 Sodium 145.5 H Potassium 5.5 H D Chloride 103 Carbon Dioxide 35 H Anion Gap 8 BUN 16 Creatinine 0.61 Est GFR ( Amer) > 60 Est GFR (Non-Af Amer) > 60 Glucose 112 H Calcium 10.1 Phosphorus 2.9 Magnesium 2.3 Impressions: Chest X-Ray 07/30/17 13:57 IMPRESSION: NO ACUTE RADIOGRAPHIC FINDING IN THE CHEST. NO SIGNIFICANT CHANGE FROM PRIOR STUDY. Ankle X-Ray 07/30/17 13:58 IMPRESSION: DISTAL TIBIA AND FIBULAR FRACTURES ABOVE. Foot X-Ray 07/30/17 13:58 IMPRESSION: DISTAL TIBIA AND FIBULAR FRACTURES ABOVE. Assessment & Plan - Diagnosis (1) Ankle fracture, right Is this a current diagnosis for this admission?: Yes Plan: Continue to adjust medications for optimal pain control. Plan to follow-up with orthopedics as an outpatient for casting. (2) Chronic back pain Qualifiers: Back pain location: low back pain Sciatica presence: with sciatica Is this a current diagnosis for this admission?: Yes Plan: Continue analgesics. Continue Lyrica (3) Acute hypercapnic respiratory failure Is this a current diagnosis for this admission?: Yes Plan: This has resolved. BiPAP use similar to her pattern at home. (4) History of pulmonary embolism Is this a current diagnosis for this admission?: Yes Plan: Monitor INR. Continue Coumadin. (5) Chronic anticoagulation Is this a current diagnosis for this admission?: Yes Plan: As Above. (6) Generalized muscle weakness Is this a current diagnosis for this admission?: Yes Plan: Myotonic muscular dystrophy wheelchair-bound. Fall precautions. (7) Hypothyroid Is this a current diagnosis for this admission?: Yes Plan: Continue Synthroid - Time Time Spent with patient: 25-34 minutes - Plan Summary Plan Summary: Awaiting rehab placement.
[2017-08-01] MEDS ORDERED: DOCUSATE SODIUM 100 MG CAPSULE PO SCH (10:00)
[2017-08-01] MEDS ORDERED: LEVOTHYROXINE SODIUM 0.1 MG TABLET PO SCH (10:00)
[2017-08-01] MEDS ORDERED: BISACODYL 5 MG TABEC PO ONE (11:00)
[2017-08-01] MEDS: LORATADINE 10 MG TABLET PO SCH (11:56)
[2017-08-01] MEDS ORDERED: WARFARIN SODIUM 5 MG TABLET PO ONE (18:00)
--- NOTE | 2017-08-01 20:32 | EKG REPORT ---
SEVERITY:- ABNORMAL ECG - SINUS OR ECTOPIC ATRIAL RHYTHM FIRST DEGREE AV BLOCK PROBABLE LEFT ATRIAL ABNORMALITY RIGHT BUNDLE BRANCH BLOCK : Confirmed by: Izzy Morton MD 01-Aug-2017 20:31:58
[2017-08-01] MEDS ORDERED: WARFARIN SODIUM 5 MG TABLET PO SCH (22:00)
[2017-08-01] MEDS ORDERED: ATORVASTATIN CALCIUM 20 MG TABLET PO SCH (22:00)
[2017-08-01] MEDS ORDERED: (PENDING PHARMACY ID) (Warfarin Sodium 5 MG) PO SCH (22:00)
[2017-08-02] MEDS: OXYCODONE HCL IR 5 MG TABLET PO PRN ×2 (04:16→10:51)
[2017-08-02 04:25] VITALS: BP 115/62
[2017-08-02 05:05] LABS: HEMATOCRIT 49.4 % (36.0-47.0); HEMOGLOBIN 15.9 g/dL (12.0-15.5); MEAN CORPUSCULAR HEMOGLOBIN 28.1 pg (27.0-33.4); MEAN CORPUSCULAR HGB CONC 32.2 g/dL (32.0-36.0); MEAN CORPUSCULAR VOLUME 87 fl (80-97); PLATELET COUNT 268 10^3/uL (150-450); RED BLOOD COUNT 5.66 10^6/uL (3.72-5.28); RED CELL DISTRIBUTION WIDTH 17.9 % (11.5-14.0); WHITE BLOOD COUNT 11.9 10^3/uL (4.0-10.5)
[2017-08-02 05:26] LABS: INTERNATIONAL RATION (INR) 2.76; PROTHROMBIN TIME 30.6 SEC (11.4-15.4)
[2017-08-02 05:28] LABS: ANION GAP 12 (5-19); BLOOD UREA NITROGEN 15 mg/dL (7-20); CALCIUM 10.1 mg/dL (8.4-10.2); CARBON DIOXIDE 35 mmol/L (22-30); CHLORIDE 101 mmol/L (98-107); GLUCOSE 109 mg/dL (75-110); MAGNESIUM 2.2 mg/dL (1.6-2.3); PHOSPHORUS 3.2 mg/dL (2.5-4.5); POTASSIUM 4.5 mmol/L (3.6-5.0); SODIUM 148.2 mmol/L (137-145)
[2017-08-02] MEDS: LANSOPRAZOLE 15 MG TAB.RAP.DR PO SCH (05:34)
[2017-08-02] MEDS: LEVOTHYROXINE SODIUM 0.1 MG TABLET PO SCH (05:34)
--- NOTE | 2017-08-02 10:08 | PDOC TRANSFER SUMMARY ---
General - Admit/Disc Date/PCP Admission Date/Primary Care Provider: 07/30/17 16:46 Discharge Date: 08/02/17 - Discharge Diagnosis (1) Ankle fracture, right Is this a current diagnosis for this admission?: Yes (2) Acute hypercapnic respiratory failure Is this a current diagnosis for this admission?: Yes (3) Chronic anticoagulation Is this a current diagnosis for this admission?: Yes (4) Chronic back pain Is this a current diagnosis for this admission?: Yes (5) Generalized muscle weakness Is this a current diagnosis for this admission?: Yes (6) History of pulmonary embolism Is this a current diagnosis for this admission?: Yes (7) Hypothyroid Is this a current diagnosis for this admission?: Yes - Additional Information Discharge Diet: Regular Discharge Activity: Activity As Tolerated, Balance Activity w/Rest, Keep Legs Elevated - Rt lower lef, Other - Non-weightbearing right lower extremity Prescriptions: Oxycodone HCl [Oxy-Ir 5 mg Tablet] 10 mg PO Q4HP PRN #20 tablet PRN Reason: Pregabalin [Lyrica 100 mg Capsule] 100 mg PO TID #9 capsule Home Medications: Atorvastatin Calcium [Lipitor 20 mg Tablet] 20 mg PO QHS 07/31/17 Levothyroxine Sodium [Synthroid] 100 mcg PO DAILY 07/31/17 Loratadine [Claritin 10 mg Tablet] 10 mg PO DAILY 07/31/17 Warfarin Sodium [Coumadin 5 mg Tablet] 5 mg PO MOTUTHFRSA@22 PRN 07/31/17 Warfarin Sodium [Coumadin 7.5 mg Tablet] 7.5 mg PO SUWE@22 PRN 07/31/17 Oxycodone HCl [Oxy-Ir 5 mg Tablet] 10 mg PO Q4HP PRN #20 tablet 08/02/17 Pregabalin [Lyrica 100 mg Capsule] 100 mg PO TID #9 capsule 08/02/17 History of Present Illness Admission Date/PCP: 07/30/17 16:46 History of Present Illness: CARLO KAUR is a 57 year old female with a history of muscular dystrophy. Earlier today while she was trying to transfer from bed to the wheelchair she fell and sustained a fall onto her right ankle. Patient had significant pain at the time of injury and was brought to the emergency room where x-rays demonstrated a fracture and she was placed in a splint. Since application of the splint the pain has improved. She denies new numbness or tingling. Pain currently 4/10. Patient is wheelchair bound and a nonambulator secondary to her muscular dystrophy. Hospital Course Hospital Course: The patient was admitted with acute hypercapnic respiratory failure secondary to muscular dystrophy and respiratory muscle fatigue, as well as, a right ankle fracture sustained from a fall while trying to transfer from her wheelchair. Her respiratory failure was managed with BiPAP and supplemental oxygen as needed. At this time she is currently using BiPAP similar to her pattern at home. She does really require home O2 at 4 L/min via nasal cannula while awake. Orthopedics was consulted; the patient was placed in a splint and is to follow- up as an outpatient in 1-2 weeks for casting. She is to remain nonweightbearing to the right lower extremity until cleared by orthopedics. Pain is managed with Lyrica and oxycodone as needed. She does remain chronically anticoagulated with Coumadin at her home dosing secondary to history of pulmonary embolus. On day of discharge, the patient is stable, requires her home supplemental oxygen settings, and pain controlled. She is discharged to senior living for short-term rehab. Physical Exam Vital Signs: Temp Pulse Resp BP Pulse Ox 99.7 F 62 24 H 115/62 93 08/02/17 04:06 08/02/17 07:00 08/02/17 07:36 08/02/17 04:06 08/02/17 07:36 Intake & Output 08/01/17 08/02/17 08/03/17 06:59 06:59 06:59 Intake Total 500 1108 Output Total 300 Balance 200 1108 Weight 121.7 kg 119.6 kg General appearance: PRESENT: no acute distress, morbidly obese, well-developed, well-nourished Head exam: PRESENT: atraumatic, normocephalic Eye exam: PRESENT: conjunctiva pink, EOMI, PERRLA. ABSENT: scleral icterus Ear exam: PRESENT: normal external ear exam Mouth exam: PRESENT: moist, tongue midline Neck exam: ABSENT: carotid bruit, JVD, lymphadenopathy, thyromegaly Respiratory exam: PRESENT: clear to auscultation jomar. ABSENT: rales, rhonchi, wheezes Cardiovascular exam: PRESENT: RRR. ABSENT: diastolic murmur, rubs, systolic murmur Pulses: PRESENT: normal dorsalis pedis pul Vascular exam: PRESENT: normal capillary refill GI/Abdominal exam: PRESENT: normal bowel sounds, soft. ABSENT: distended, guarding, mass, organolmegaly, rebound, tenderness Rectal exam: PRESENT: deferred Extremities exam: PRESENT: tenderness - Right ankle. ABSENT: calf tenderness, clubbing, full ROM - Right ankle splint, pedal edema Neurological exam: PRESENT: alert, awake, oriented to person, oriented to place , oriented to time, oriented to situation, CN II-XII grossly intact. ABSENT: motor sensory deficit Psychiatric exam: PRESENT: appropriate affect, normal mood. ABSENT: homicidal ideation, suicidal ideation Skin exam: PRESENT: dry, intact, warm. ABSENT: cyanosis, rash Results Laboratory Results: 08/02/17 04:09 08/02/17 04:09 08/02/17 08/02/17 04:09 04:09 WBC 11.9 H RBC 5.66 H Hgb 15.9 H Hct 49.4 H MCV 87 MCH 28.1 MCHC 32.2 RDW 17.9 H Plt Count 268 Sodium 148.2 H Potassium 4.5 Chloride 101 Carbon Dioxide 35 H Anion Gap 12 BUN 15 Creatinine 0.58 Est GFR ( Amer) > 60 Est GFR (Non-Af Amer) > 60 Glucose 109 Calcium 10.1 Phosphorus 3.2 Magnesium 2.2 Impressions: Chest X-Ray 07/30/17 13:57 IMPRESSION: NO ACUTE RADIOGRAPHIC FINDING IN THE CHEST. NO SIGNIFICANT CHANGE FROM PRIOR STUDY. Ankle X-Ray 07/30/17 13:58 IMPRESSION: DISTAL TIBIA AND FIBULAR FRACTURES ABOVE. Foot X-Ray 07/30/17 13:58 IMPRESSION: DISTAL TIBIA AND FIBULAR FRACTURES ABOVE. Transfer Plan - Disposition Transfer Plan: Discharge to senior living facility for short-term rehab. Qualifiers [place]INT BEING DISCHARGED WITH ANY OF THE FOLLOWING DIAGNOSIS?: No Plan Time Spent: Less than 30 Minutes
[2017-08-02] MEDS: PREGABALIN 100 MG CAPSULE PO SCH ×2 (10:51→13:25)
[2017-08-02] MEDS: OXYCODONE HCL SR 10 MG TABLET PO SCH (10:51)
[2017-08-02] MEDS: LORATADINE 10 MG TABLET PO SCH (10:51)
[2017-08-02] MEDS: DOCUSATE SODIUM 100 MG CAPSULE PO SCH (10:52)
[2017-08-02] MEDS ORDERED: WARFARIN SODIUM 7.5 MG TABLET PO SCH (22:00)
[2017-08-02] MEDS ORDERED: (PENDING PHARMACY ID) (Warfarin Sodium 7.5 MG) PO SCH (22:00)
== END 2017-08-02 18:07 | DRG 189 ==
LOC: ER 12:01 → EH 16:46 → 3N 20:02
PROVIDERS: ADMIT Internal Medicine; ATTEND Internal Medicine
PROC: 5A09457 Assistance with Respiratory Ventilation, 24-96 Consecutive Hours, Continuous Positive Airway Pressure (ICD-10-PCS; principal; 2017-07-30)
DX: J96.22 Acute and chronic respiratory failure with hypercapnia (principal); G71.0 Muscular dystrophy; S82.301A Unspecified fracture of lower end of right tibia, initial encounter for closed fracture; S82.831A Other fracture of upper and lower end of right fibula, initial encounter for closed fracture; W06.XXXA Fall from bed, initial encounter; J44.9 Chronic obstructive pulmonary disease, unspecified; Y92.003 Bedroom of unspecified non-institutional (private) residence as the place of occurrence of the external cause; I10 Essential (primary) hypertension; Z66 Do not resuscitate; E03.9 Hypothyroidism, unspecified; G89.29 Other chronic pain; M54.40 Lumbago with sciatica, unspecified side; Z79.899 Other long term (current) drug therapy; Z90.49 Acquired absence of other specified parts of digestive tract; Z99.3 Dependence on wheelchair; Z79.01 Long term (current) use of anticoagulants; Z86.711 Personal history of pulmonary embolism; Z87.891 Personal history of nicotine dependence
CPT/HCPCS: 36415; 71010; 80048; 80053; 80076; 81001; 82550; 82553; 82803; 83735; 83880; 84100; 84443; 84484; 85025; 85027; 85610; 85730; 93005; 93010; 94660; 99285; G8978-GP; G8979-GP; J2270; J3490

== ENCOUNTER 2017-08-02 20:38 | Inpatient (IN) | payer MEDICARE, MEDICAID ==
--- NOTE | 2017-08-02 21:03 | ER Document Report ---
ED Respiratory Problem - General Chief Complaint: Shortness Of Breath Stated Complaint: DIFFICULTY BREATHING Time Seen by Provider: 08/02/17 20:53 Notes: The patient is a 57-year-old female, past medical history muscular dystrophy ( on home 4L O2 and BiPAP PRN and qHS, O2 sats usually 85-90%), hypertension, chronic back pain, history of PE (on Coumadin), presents from [facility] after her oxygen sats were found to be 75% on her home 4L nasal cannula. She was discharged from the hospital this morning after she had an ankle fracture. Patient denies shortness of breath, cough, nausea, vomiting, fevers, chest pain, increased leg swelling, increased back pain, abdominal pain or hemoptysis. TRAVEL OUTSIDE OF THE [place] IN LAST 30 DAYS: No - Related Data Allergies/Adverse Reactions: No Known Allergies Allergy (Verified 10/22/14 04:46) Past Medical History - General Information source: Patient - Social History Smoking Status: Former Smoker Family History: Reviewed & Not Pertinent - Past Medical History Cardiac Medical History: Reports: Hx Hypertension - History of stress-induced cardiomyopathy in October 2014 Pulmonary Medical History: Reports: Hx COPD - ON C-PAP PRN, USES IT EXTENSIVELY , Hx Respiratory Failure - Due to muscular dystrophy CPAP as needed Endocrine Medical History: Reports: Hx Hypothyroidism Renal/ Medical History: Denies: Hx Peritoneal Dialysis Musculoskeltal Medical History: Reports Hx Muscular Dystrophy Psychiatric Medical History: Denies: Hx Depression Past Surgical History: Reports: Hx Section - x2, Hx Cholecystectomy, Hx Thyroid Surgery - Immunizations Hx Diphtheria, Pertussis, Tetanus Vaccination: Yes Hx Pneumococcal Vaccination: 08/07/13 Review of Systems - Review of Systems Notes: REVIEW OF SYSTEMS: CONSTITUTIONAL: -fevers, -chills EENT: -eye pain, -difficulty swallowing, -nasal congestion CARDIOVASCULAR:-chest pain, -syncope. RESPIRATORY: -cough, -SOB GASTROINTESTINAL: -abdominal pain, - nausea, -vomiting, -diarrhea GENITOURINARY: -dysuria, -hematuria MUSCULOSKELETAL: -back pain, -neck pain SKIN: -rash or skin lesions. HEMATOLOGIC: -easy bruising or bleeding. LYMPHATIC: -swollen, enlarged glands. NEUROLOGICAL: -altered mental status or loss of consciousness, -headache, - neurologic symptoms PSYCHIATRIC: -anxiety, -depression. ALL OTHER SYSTEMS REVIEWED AND NEGATIVE. Physical Exam - Vital signs Vitals: Pulse Ox 89 L 08/02/17 20:44 - Notes Notes: PHYSICAL EXAMINATION: GENERAL: Well-appearing, well-nourished and in no acute distress. HEAD: Atraumatic, normocephalic. EYES: Pupils equal round and reactive to light, extraocular movements intact, sclera anicteric, conjunctiva are normal. ENT: nares patent, oropharynx clear without exudates. Moist mucous membranes. NECK: Normal range of motion, supple without lymphadenopathy LUNGS: Crackles in left lower lungs. Mild tachypnea. No respiratory distress. HEART: Tachycardia. ABDOMEN: Soft, nontender, normoactive bowel sounds. No guarding, no rebound. No masses appreciated. EXTREMITIES: Right ankle in splint. Good capillary refill and able to wiggle all toes, sensation intact. Normal range of motion, no pitting or edema. No cyanosis. NEUROLOGICAL: Cranial nerves grossly intact. Normal speech, normal gait. Normal sensory and motor exams. PSYCH: Normal mood, normal affect. SKIN: 5 cm erythematous region at site of old IV in left antecubital fossa. Course - Re-evaluation Re-evalutation: Patient arrives to the ER setting 75% on her normal for liters nasal cannula. She is only mildly tachypneic and does not appear to be in respiratory distress. Her oxygenation increased to 88% on 10 L nonrebreather. Her chest x- ray shows a new left lower lobe infiltrate and she has a cellulitis in her left antecubital fossa. Due to recent hospitalization, will begin broad-spectrum antibiotics to cover for HAP. Pt requires hospitalization due to double an increase in her oxygen requirement and IV Abx treatment for her new pneumonia. 08/02/17 23:[address] Sanders and will admit patient as Inpatient to [facility] for further evaluation and monitoring of her hypoxia and pneumonia. - Vital Signs Vital signs: Temp Pulse Resp BP Pulse Ox 30 H 117/77 90 L 08/02/17 23:06 08/02/17 21:36 08/02/17 23:06 - Laboratory Result Diagrams: 08/02/17 22:20 08/02/17 22:20 Laboratory results interpreted by me: 08/02/17 08/02/17 08/02/17 22:20 22:20 22:25 RBC 5.38 H RDW 17.5 H VBG HCO3 35.4 H Carbon Dioxide 35 H Creatinine 0.48 L Glucose 133 H AST 51 H Creatine Kinase 545 H Total Protein 6.1 L Albumin 3.3 L - Diagnostic Test Radiology reviewed: Image reviewed, Reports reviewed Radiology results interpreted by me: CXR: New left lower lobe infiltrate Critical Care Note - Critical Care Note Total time excluding time spent on procedures (mins): 35 Discharge - Discharge Clinical Impression: Hypoxia Pneumonia Qualifiers: Pneumonia type: due to unspecified organism Laterality: left Lung location: lower lobe of lung Qualified Code(s): J18.1 - Lobar pneumonia, unspecified organism Condition: Stable Disposition: ADMITTED INPATIENT Admitting Provider: [facility] Unit Admitted: [facility]
--- NOTE | 2017-08-02 21:44 | RADIOLOGY REPORT (SQ) ---
EXAM DESCRIPTION: CHEST SINGLE VIEW COMPLETED DATE/TIME: 08/02/2017 9:10 pm REASON FOR STUDY: hypoxia COMPARISON: 07/30/2017 EXAM PARAMETERS: NUMBER OF VIEWS: One view. TECHNIQUE: Single frontal radiographic view of the chest acquired. RADIATION DOSE: NA LIMITATIONS: None. FINDINGS: LUNGS AND PLEURA: New Patchy consolidation in the left lower lobe. Small left effusion. Right lung shows minimal subsegmental atelectasis medially. No pneumothorax. MEDIASTINUM AND HILAR STRUCTURES: Stable. HEART AND VASCULAR STRUCTURES: Stable. BONES: No acute findings. HARDWARE: None in the chest. OTHER: No other significant finding. IMPRESSION: New Patchy consolidation in the left lower lobe. Small left effusion. TECHNICAL DOCUMENTATION: JOB ID: [id number] [id number] 2010 [employer]- All Rights Reserved
[2017-08-02] MEDS ORDERED: PIPERACILLIN/TAZOBACTAM 3.375 GM VIAL IV ONE (21:58)
[2017-08-02] MEDS ORDERED: VANCOMYCIN HCL INJ 1000 MG VIAL IV ONE (21:58)
[2017-08-02 22:43] LABS: VENOUS BLOOD BASE EXCESS 7.8 mmol/L; VENOUS BLOOD HCO3 35.4 mmol/L (20-32); VENOUS BLOOD PCO2 61.2 mmHg (35-63); VENOUS BLOOD PH 7.38 (7.30-7.42)
[2017-08-02 22:48] LABS: ABSOLUTE EOSINOPHILS # (AUTO) 0.1 10^3/uL (0.0-0.6); ABSOLUTE LYMPHOCYTES (AUTO) 1.3 10^3/uL (0.5-4.7); ABSOLUTE MONOCYTES (AUTO) 1.2 10^3/uL (0.1-1.4); ABSOLUTE NEUT (AUTO) 6.8 10^3/uL (1.7-8.2); BASOPHILS % (AUTO) 0.5 % (0-2); EOSINOPHILS % (AUTO) 0.6 % (0-6); HEMATOCRIT 46.7 % (36.0-47.0); HEMOGLOBIN 15.2 g/dL (12.0-15.5); LYMPHOCYTES % (AUTO) 13.4 % (13-45); MEAN CORPUSCULAR HEMOGLOBIN 28.2 pg (27.0-33.4); MEAN CORPUSCULAR HGB CONC 32.5 g/dL (32.0-36.0); MEAN CORPUSCULAR VOLUME 87 fl (80-97); MONOCYTES % (AUTO) 12.6 % (3-13); PLATELET COUNT 238 10^3/uL (150-450); RED BLOOD COUNT 5.38 10^6/uL (3.72-5.28); RED CELL DISTRIBUTION WIDTH 17.5 % (11.5-14.0); SEGMENTED NEUTROPHILS % (AUTO) 72.9 % (42-78); TOTAL CELLS COUNTED % (AUTO) 100 %; WHITE BLOOD COUNT 9.4 10^3/uL (4.0-10.5)
[2017-08-02 23:00] LABS: ALANINE AMINOTRANSFERASE 40 U/L (9-52); ALBUMIN 3.3 g/dL (3.5-5.0); ALKALINE PHOSPHATASE 122 U/L (38-126); ANION GAP 6 (5-19); ASPARTATE AMINO TRANSFERASE 51 U/L (14-36); BILIRUBIN,DIRECT 0.3 mg/dL (0.0-0.4); BILIRUBIN,TOTAL 0.6 mg/dL (0.2-1.3); BLOOD UREA NITROGEN 16 mg/dL (7-20); CALCIUM 9.4 mg/dL (8.4-10.2); CARBON DIOXIDE 35 mmol/L (22-30); CHLORIDE 103 mmol/L (98-107); CREATINE KINASE 545 U/L (30-135); GLUCOSE 133 mg/dL (75-110); POTASSIUM 3.9 mmol/L (3.6-5.0); SODIUM 144.2 mmol/L (137-145); TOTAL PROTEIN 6.1 g/dL (6.3-8.2)
[2017-08-02 23:28] LABS: INTERNATIONAL RATION (INR) 2.87; PROTHROMBIN TIME 31.5 SEC (11.4-15.4)
[2017-08-02] MEDS ORDERED: VANCOMYCIN HCL 0 MG in DEXTROSE 5%-WATER 250 ML IV NR (23:45)
[2017-08-03] MEDS ORDERED: PIPERACILLIN SODIUM/TAZOBACTAM 4.5 GM in NORMAL SALINE 100 ML IV SCH (00:15)
[2017-08-03] MEDS ORDERED: PIPERACILLIN/TAZOBACTAM 4.5 GM VIAL IV PRN (00:16)
[2017-08-03] MEDS: OXYCODONE HCL IR 5 MG TABLET PO PRN (00:41)
[2017-08-03] MEDS ORDERED: VANCOMYCIN HCL INJ 1000 MG VIAL IV PRN (00:41)
[2017-08-03 00:44] LABS: PARTIAL THROMBOPLASTIN TIME 66.9 SEC (23.5-35.8)
[2017-08-03] MEDS ORDERED: VANCOMYCIN HCL 1,000 MG in DEXTROSE 5%-WATER 250 ML IV ONE (00:45)
[2017-08-03] MEDS ORDERED: SENNOSIDES/DOCUSATE 8.6-50 MG 1 EACH TABLET PO ONE (00:45)
--- NOTE | 2017-08-03 00:52 | PDOC H&P ---
History of Present Illness Admission Date/PCP: 08/02/17 23:35 CHANCE ROSARIO MD History of Present Illness: CARLO KAUR is a 57 year old female with past medical history of muscular dystrophy, chronic hypoxemic respiratory failure on home O2 and QHS CPAP, obstructive sleep apnea, hypertension, chronic low back pain, prior pulmonary embolus on chronic Coumadin who was admitted at this facility from 07/30/17 through 08/02/17 for a tib-fib fracture. Patient was discharged this afternoon to [facility] and was returned upon arrival when her sats were found to be 75% on 4 L of nasal cannula. Patient reports that she has been perhaps more short of breath over the last several days but denies any fevers or cough or productive sputum. She does report chills. She admits to nausea without vomiting and reports that her last bowel movements was several days ago. Patient also complains of left upper extremity erythema and pustule in the antecubital space. Patient is currently on 80% BiPAP maintaining a saturation of 95%. Repeat chest x-ray reveals a left lower lobe infiltrate consistent with pneumonia. She is referred to the hospitalist service for healthcare associated pneumonia. Past Medical History Cardiac Medical History: Reports: Hypertension - History of stress-induced cardiomyopathy in October 2014 Pulmonary Medical History: Reports: Chronic Obstructive Pulmonary Disease (COPD ) - ON C-PAP PRN, USES IT EXTENSIVELY, Respiratory Failure - Due to muscular dystrophy CPAP as needed Endocrine Medical History: Reports: Hypothyroidism, Obesity Musculoskeltal Medical History: Reports: Other - Muscular dystrophy Psychiatric Medical History: Denies: Depression Past Surgical History Past Surgical History: Reports: Section - x2, Cholecystectomy Social History Smoking Status: Former Smoker Frequency of Alcohol Use: None Hx Recreational Drug Use: No Hx Prescription Drug Abuse: No - Advance Directive Resuscitation Status: Do Not Resuscitate Surrogate healthcare decision maker:: Lisa Calero, mother Family History Family History: Other - Brother and niece with muscular dystrophy Parental Family History Reviewed: Yes Children Family History Reviewed: Yes Sibling(s) Family History Reviewed.: Yes Medication/Allergy Home Medications: Atorvastatin Calcium [Lipitor 20 mg Tablet] 20 mg PO QHS 07/31/17 Levothyroxine Sodium [Synthroid] 100 mcg PO DAILY 07/31/17 Loratadine [Claritin 10 mg Tablet] 10 mg PO DAILY 12/25/17 Warfarin Sodium [Coumadin 5 mg Tablet] 5 mg PO MOTUTHFRSA@22 PRN 07/31/17 Warfarin Sodium [Coumadin 7.5 mg Tablet] 7.5 mg PO SUWE@22 PRN 07/31/17 Oxycodone HCl [Oxy-Ir 5 mg Tablet] 10 mg PO Q4HP PRN #20 tablet 08/02/17 Pregabalin [Lyrica 100 mg Capsule] 100 mg PO TID #9 capsule 08/02/17 Allergies/Adverse Reactions: No Known Allergies Allergy (Verified 10/22/14 04:46) Review of Systems Constitutional: PRESENT: chills. ABSENT: fever(s), headache(s), weight gain, weight loss Eyes: ABSENT: visual disturbances Ears: ABSENT: hearing changes Cardiovascular: ABSENT: chest pain, dyspnea on exertion, edema, orthropnea, palpitations Respiratory: PRESENT: dyspnea. ABSENT: cough, hemoptysis, sputum Gastrointestinal: PRESENT: constipation, nausea. ABSENT: abdominal pain, diarrhea, hematemesis, hematochezia, vomiting Genitourinary: PRESENT: difficulty urinating. ABSENT: dysuria, hematuria, nocturia Musculoskeletal: PRESENT: as per HPI, back pain, muscle weakness. ABSENT: joint swelling Integumentary: PRESENT: erythema - LAC, rash - Left AC, wounds - Pustule left AC Neurological: PRESENT: weakness. ABSENT: abnormal gait, abnormal speech, confusion, dizziness, focal weakness, syncope Psychiatric: ABSENT: anxiety, depression, homidical ideation, suicidal ideation Endocrine: ABSENT: cold intolerance, heat intolerance, polydipsia, polyuria Hematologic/Lymphatic: ABSENT: easy bleeding, easy bruising Physical Exam Vital Signs: Temp Pulse Resp BP Pulse Ox 30 H 123/74 90 L 08/02/17 23:06 08/02/17 22:32 08/02/17 23:06 General appearance: PRESENT: mild distress, morbidly obese, well-developed, well -nourished Head exam: PRESENT: atraumatic, normocephalic Eye exam: PRESENT: conjunctiva pink, EOMI, PERRLA. ABSENT: scleral icterus Ear exam: PRESENT: normal external ear exam Mouth exam: PRESENT: moist, tongue midline Neck exam: ABSENT: JVD, lymphadenopathy, thyromegaly, tracheal deviation Respiratory exam: PRESENT: crackles - Left lower lobe, symmetrical, unlabored. ABSENT: accessory muscle use, rales, rhonchi, tachypnea, wheezes Cardiovascular exam: PRESENT: RRR, +S1, +S2. ABSENT: diastolic murmur, rubs, systolic murmur Pulses: PRESENT: normal dorsalis pedis pul Vascular exam: PRESENT: normal capillary refill GI/Abdominal exam: PRESENT: diminished bowel sounds, soft. ABSENT: distended, firm, guarding, mass, Jeronimo's sign, organolmegaly, rebound, rigid, tenderness Rectal exam: PRESENT: deferred Extremities exam: ABSENT: clubbing Musculoskeletal exam: PRESENT: deformity - Right lower extremity in splint Neurological exam: PRESENT: alert, awake, oriented to person, oriented to place , oriented to time, oriented to situation, CN II-XII grossly intact, motor sensory deficit - Generalized weakness Psychiatric exam: PRESENT: appropriate affect, normal mood. ABSENT: homicidal ideation, suicidal ideation Skin exam: PRESENT: dry, intact, warm. ABSENT: cyanosis, rash Results Laboratory Results: 07/31/17 07/31/17 08/02/17 00:35 04:29 21:25 WBC Hgb Hct Plt Count INR 2.87 VBG pH VBG pCO2 VBG HCO3 Sodium Potassium Chloride Carbon Dioxide Anion Gap BUN Creatinine Glucose Calcium Total Bilirubin Direct Bilirubin AST ALT Alkaline Phosphatase Creatine Kinase NT-Pro-B Natriuret Pep Total Protein Albumin TSH 0.77 Ur Leukocyte Esterase NEGATIVE Urine WBC (Auto) 1 Amorphous Sediment Auto TRACE Urine Mucus (Auto) OCC 08/02/17 08/02/17 08/02/17 22:20 22:20 22:20 WBC 9.4 Hgb 15.2 Hct 46.7 Plt Count 238 INR VBG pH VBG pCO2 VBG HCO3 Sodium 144.2 Potassium 3.9 Chloride 103 Carbon Dioxide 35 H Anion Gap 6 BUN 16 Creatinine 0.48 L Glucose 133 H Calcium 9.4 Total Bilirubin 0.6 Direct Bilirubin 0.3 AST 51 H ALT 40 Alkaline Phosphatase 122 Creatine Kinase 545 H NT-Pro-B Natriuret Pep 721 Total Protein 6.1 L Albumin 3.3 L TSH Ur Leukocyte Esterase Urine WBC (Auto) Amorphous Sediment Auto Urine Mucus (Auto) 08/02/17 22:25 WBC Hgb Hct Plt Count INR VBG pH 7.38 VBG pCO2 61.2 VBG HCO3 35.4 H Sodium Potassium Chloride Carbon Dioxide Anion Gap BUN Creatinine Glucose Calcium Total Bilirubin Direct Bilirubin AST ALT Alkaline Phosphatase Creatine Kinase NT-Pro-B Natriuret Pep Total Protein Albumin TSH Ur Leukocyte Esterase Urine WBC (Auto) Amorphous Sediment Auto Urine Mucus (Auto) Impressions: Chest X-Ray 08/02/17 20:54 IMPRESSION: New Patchy consolidation in the left lower lobe. Small left effusion. Assessment & Plan - Diagnosis (1) PNA (pneumonia) Qualifiers: Pneumonia type: due to unspecified organism Laterality: left Lung location: lower lobe of lung Qualified Code(s): J18.1 - Lobar pneumonia, unspecified organism Is this a current diagnosis for this admission?: Yes Plan: Secondary to healthcare associated pneumonia Place patient on vancomycin and Zosyn Place patient on scheduled nebulized treatments and re-evaluate for improvement. PRN Xopenex Obtain sputum culture Place patient on chest physiotherapy to help mobilize secretions (2) Acute on chronic respiratory failure with hypoxia and hypercapnia Is this a current diagnosis for this admission?: Yes Plan: Continue patient on BiPAP and oxygen. Will repeat ABG in a.m. (3) Left arm cellulitis Is this a current diagnosis for this admission?: Yes Plan: Obtain Doppler of patient's left upper extremity patient will be placed on vancomycin and Zosyn for her pneumonia which should more than adequately cover skin glenroy Warm packs 3 times daily as needed (4) Chronic anticoagulation Is this a current diagnosis for this admission?: Yes Plan: Continue daily INR check (5) Chronic back pain Qualifiers: Back pain location: low back pain Back pain laterality: unspecified Sciatica presence: with sciatica Is this a current diagnosis for this admission?: Yes Plan: On Lyrica 3 times daily Supportive care Consider Lidoderm (6) Closed fracture of right distal tibia Qualifiers: Encounter type: initial encounter Fracture alignment: nondisplaced (7) History of pulmonary embolism Is this a current diagnosis for this admission?: Yes Plan: Check INR daily Currently therapeutic On Coumadin 08/02/17 21:25 INR 2.87 (8) Hypothyroid Is this a current diagnosis for this admission?: Yes Plan: Patient on daily Synthroid 07/31/17 04:29 TSH 0.77 (9) Tibia fracture Qualifiers: Encounter type: initial encounter Tibia location: shaft Fracture type: closed Fracture morphology: transverse Fracture alignment: nondisplaced Laterality: right Qualified Code(s): S82.224A - Nondisplaced transverse fracture of shaft of right tibia, initial encounter for closed fracture Is this a current diagnosis for this admission?: Yes Plan: Oxycodone 10 mg p.o. every 4h prn pain Consult orthopedic surgery for splint placement (10) Fibula fracture Qualifiers: Encounter type: initial encounter Fibula location: distal Fracture type: closed Fracture morphology: unspecified fracture morphology Laterality: right Qualified Code(s): S82.831A - Other fracture of upper and lower end of right fibula, initial encounter for closed fracture Is this a current diagnosis for this admission?: Yes (11) Muscular dystrophy Is this a current diagnosis for this admission?: Yes Plan: Supportive care Patient is a DNR/DNI, but will accept elective intubation for surgery. (12) Severe obesity (BMI 35.0-35.9 with comorbidity) Is this a current diagnosis for this admission?: Yes - Time Time Spent: 30 to 50 Minutes Medications reviewed and adjusted accordingly: Yes Anticipated discharge: SNF Within: Other - Upon improvement of symptomatology - Inpatient Certification Based on my medical assessment, after consideration of the patient's comorbidities, presenting symptoms, or acuity I expect that the services needed warrant INPATIENT care.: Yes I certify that my determination is in accordance with my understanding of Medicare's requirements for reasonable and necessary INPATIENT services [42 CFR 412.3e].: Yes Medical Necessity: Need for Nebulizer Therapy and Monitoring of Response, Need for IV Antibiotics Post Hospital Care: D/C Pay Station Collector Documentation
[2017-08-03] MEDS: PIPERACILLIN SODIUM/TAZOBACTAM 4.5 GM in NORMAL SALINE 100 ML IV SCH ×5 (01:57→23:41)
[2017-08-03] MEDS ORDERED: PIPERACILLIN/TAZOBACTAM 4.5 GM VIAL IV ONE (02:32)
[2017-08-03] MEDS ORDERED: VANCOMYCIN HCL INJ 1000 MG VIAL ONE (02:32)
[2017-08-03] MEDS: IPRATROPIUM/ALBUTEROL 0.5-2.5 MG/3 ML AMPUL NEB SCH ×4 (02:43→20:21)
[2017-08-03] MEDS: LEVOTHYROXINE SODIUM 0.1 MG TABLET PO SCH (05:43)
[2017-08-03 06:37] LABS: ABSOLUTE BASOPHILS # (AUTO) 0.1 10^3/uL (0.0-0.2); ABSOLUTE LYMPHOCYTES (AUTO) 1.4 10^3/uL (0.5-4.7); ABSOLUTE MONOCYTES (AUTO) 1.2 10^3/uL (0.1-1.4); ABSOLUTE NEUT (AUTO) 6.4 10^3/uL (1.7-8.2); BASOPHILS % (AUTO) 0.7 % (0-2); EOSINOPHILS % (AUTO) 0.3 % (0-6); HEMATOCRIT 46.7 % (36.0-47.0); HEMOGLOBIN 15.2 g/dL (12.0-15.5); LYMPHOCYTES % (AUTO) 15.8 % (13-45); MEAN CORPUSCULAR HEMOGLOBIN 28.4 pg (27.0-33.4); MEAN CORPUSCULAR HGB CONC 32.6 g/dL (32.0-36.0); MEAN CORPUSCULAR VOLUME 87 fl (80-97); MONOCYTES % (AUTO) 13.2 % (3-13); PLATELET COUNT 246 10^3/uL (150-450); RED BLOOD COUNT 5.36 10^6/uL (3.72-5.28); RED CELL DISTRIBUTION WIDTH 17.4 % (11.5-14.0); TOTAL CELLS COUNTED % (AUTO) 100 %; WHITE BLOOD COUNT 9.1 10^3/uL (4.0-10.5)
[2017-08-03 06:47] LABS: ARTERIAL BLOOD BASE EXCESS 5.3 mmol/L; ARTERIAL BLOOD H2CO3 1.51 mmol/L (1.05-1.35); ARTERIAL BLOOD HCO3 31.2 mmol/L (20-26); ARTERIAL BLOOD O2 SATURATION 88.5 % (94-98); ARTERIAL BLOOD PCO2 50.2 mmHg (35-45); ARTERIAL BLOOD PH 7.41 (7.35-7.45); ARTERIAL BLOOD PO2 54.8 mmHg (80-100); ARTERIAL BLOOD TOTAL CO2 32.7 mmol/L (21-25)
[2017-08-03 06:48] LABS: ARTERIAL BLOOD FIO2 30%
[2017-08-03 06:58] LABS: ANION GAP 11 (5-19); BLOOD UREA NITROGEN 14 mg/dL (7-20); CALCIUM 9.6 mg/dL (8.4-10.2); CARBON DIOXIDE 34 mmol/L (22-30); CHLORIDE 101 mmol/L (98-107); GLUCOSE 108 mg/dL (75-110); POTASSIUM 4.2 mmol/L (3.6-5.0); SODIUM 146.1 mmol/L (137-145)
[2017-08-03 07:00] LABS: INTERNATIONAL RATION (INR) 2.69
--- NOTE | 2017-08-03 09:31 | RADIOLOGY REPORT (SQ) ---
EXAM DESCRIPTION: VENOUS UNILATERAL UPPER COMPLETED DATE/TIME: 08/03/2017 9:23 am REASON FOR STUDY: erythema COMPARISON: None. TECHNIQUE: Dynamic and static seo scale and color images acquired of the left arm venous system. Se lected spectral images acquired with additional compression and augmentation maneuvers. The contralat eral subclavian vein and internal jugular vein were also imaged. Images stored on PACS. LIMITATIONS: None. FINDINGS: INTERNAL JUGULAR VEIN: Normal phasicity, compression, augmentation. No visualized echogeni c material on seo scale. No defects on color images. Comparison opposite side normal. SUBCLAVIAN VEIN: Normal compression, augmentation. No visualized echogenic material on seo scale. No defects on color images. AXILLARY VEIN: Normal compression, augmentation. No visualized echogenic material on seo scale. No d efects on color images. BRACHIAL VEIN: Normal compression, augmentation. No visualized echogenic material on seo scale. No d efects on color images. BASILIC VEIN: Normal compression, augmentation. No visualized echogenic material on seo scale. No de fects on color images. CEPHALIC VEIN: Normal compression, augmentation. No visualized echogenic material on seo scale. No d efects on color images. OTHER: No other significant finding. CONTRALATERAL SUBCLAVIAN VEIN AND INTERNAL JUGULAR VEIN: Normal phasicity, compression and augmentation. No visualized echogenic material on seo scale. No de fects on color images. IMPRESSION: NO EVIDENCE DVT OR SVT IN THE LEFT ARM. TECHNICAL DOCUMENTATION: JOB ID: [id number] [employer]- All Rights Reserved
[2017-08-03] MEDS: PREGABALIN 100 MG CAPSULE PO SCH ×3 (09:59→17:26)
[2017-08-03] MEDS: DOCUSATE SODIUM 100 MG CAPSULE PO SCH ×2 (09:59→17:26)
[2017-08-03] MEDS: LORATADINE 10 MG TABLET PO SCH (09:59)
[2017-08-03] MEDS: GUAIFENESIN 600 MG TABLET.SA PO SCH ×2 (09:59→22:03)
[2017-08-03] MEDS: VANCOMYCIN HCL 1,250 MG in DEXTROSE 5%-WATER 250 ML IV SCH ×2 (13:29→22:04)
--- NOTE | 2017-08-03 17:20 | PDOC PROGRESS REPORT ---
Subjective Progress Note for:: 08/03/17 Subjective:: Feeling okay today. She is comfortable taking a nap on BiPAP Reason For Visit: HCAP PNEUMONIA Physical Exam Vital Signs: Temp Pulse Resp BP Pulse Ox 98.8 F 66 21 H 125/59 L 86 L 08/03/17 11:54 08/03/17 14:01 08/03/17 14:01 08/03/17 11:54 08/03/17 11:54 Pulse Oximeter Continuous Start: 08/02/17 23: 46 Freq: RTQ4 Status: Active Document 08/03/17 11:47 [facility] (Rec: 08/03/17 11:48 CW [email or web address]) Pulse Oximetry Assessment Oxygen Saturation (92-100) 92 Oxygen Delivery Method Bi-pap Fraction of Inspired Oxygen (FIO2) 70 Equipment Usage Equipment in Use Continuous SpO2 Machine # 10 Intake & Output 08/02/17 08/03/17 08/04/17 06:59 06:59 06:59 Intake Total 1100 0 Output Total 500 200 Balance 600 -200 Weight 123.1 kg General appearance: PRESENT: no acute distress, cooperative, obese Head exam: PRESENT: atraumatic, normocephalic Eye exam: PRESENT: conjunctiva pink, EOMI, PERRLA Neck exam: PRESENT: JVD Respiratory exam: PRESENT: clear to auscultation jomar, unlabored. ABSENT: accessory muscle use Cardiovascular exam: PRESENT: RRR. ABSENT: diastolic murmur, rubs, systolic murmur GI/Abdominal exam: PRESENT: normal bowel sounds, soft. ABSENT: distended, guarding, mass, organolmegaly, rebound, tenderness Rectal exam: PRESENT: deferred Neurological exam: PRESENT: alert, awake, oriented to person, oriented to place , oriented to time, oriented to situation, CN II-XII grossly intact. ABSENT: motor sensory deficit Skin exam: PRESENT: other - Left antecubital fossa is erythematous. There is a punctate skin wound with pustulent discharge at the crease in her arm. Results Laboratory Results: 08/03/17 06:10 08/03/17 06:10 08/03/17 08/03/17 08/03/17 06:10 06:10 06:36 WBC 9.1 RBC 5.36 H Hgb 15.2 Hct 46.7 MCV 87 MCH 28.4 MCHC 32.6 RDW 17.4 H Plt Count 246 Seg Neutrophils % 70.0 Lymphocytes % 15.8 Monocytes % 13.2 H Eosinophils % 0.3 Basophils % 0.7 Absolute Neutrophils 6.4 Absolute Lymphocytes 1.4 Absolute Monocytes 1.2 Absolute Eosinophils 0.0 Absolute Basophils 0.1 Carbonic Acid 1.51 H HCO3/H2CO3 Ratio 20:1 ABG pH 7.41 ABG pCO2 50.2 H ABG pO2 54.8 L ABG HCO3 31.2 H ABG O2 Saturation 88.5 L ABG Base Excess 5.3 FiO2 30% Sodium 146.1 H Potassium 4.2 Chloride 101 Carbon Dioxide 34 H Anion Gap 11 BUN 14 Creatinine 0.50 L Est GFR ( Amer) > 60 Est GFR (Non-Af Amer) > 60 Glucose 108 Calcium 9.6 Impressions: Chest X-Ray 08/02/17 20:54 IMPRESSION: New Patchy consolidation in the left lower lobe. Small left effusion. Venous Doppler Study 08/03/17 00:00 IMPRESSION: NO EVIDENCE DVT OR SVT IN THE LEFT ARM. Assessment & Plan - Diagnosis (1) Acute on chronic respiratory failure with hypoxia and hypercapnia Is this a current diagnosis for this admission?: Yes Plan: Likely due to pneumonia. Continue oxygen during the day. Continue BiPAP at night as well as as needed. (2) Left arm cellulitis Is this a current diagnosis for this admission?: Yes Plan: Continue to antibiotics. (3) Muscular dystrophy Is this a current diagnosis for this admission?: Yes Plan: Stable. (4) ANTONELLA (obstructive sleep apnea) Is this a current diagnosis for this admission?: Yes Plan: BiPAP at night, and when sleeping (5) PNA (pneumonia) Qualifiers: Pneumonia type: due to unspecified organism Laterality: left Lung location: lower lobe of lung Qualified Code(s): J18.1 - Lobar pneumonia, unspecified organism Is this a current diagnosis for this admission?: Yes Plan: She is on broad-spectrum antibiotics for HAP (6) Severe obesity (BMI 35.0-35.9 with comorbidity) Is this a current diagnosis for this admission?: Yes Plan: Stable (7) Chronic anticoagulation Is this a current diagnosis for this admission?: Yes Plan: Continue current dose of warfarin. INR is therapeutic. (8) Chronic pain Is this a current diagnosis for this admission?: Yes Plan: Continue narcotics as needed. (9) Closed fracture of right distal tibia Qualifiers: Encounter type: initial encounter Fracture alignment: nondisplaced (10) Hypothyroid Qualifiers: Hypothyroidism type: acquired Qualified Code(s): E03.9 - Hypothyroidism, unspecified Is this a current diagnosis for this admission?: Yes Plan: Continue levothyroxine - Time Time Spent with patient: 25-34 minutes Medications reviewed and adjusted accordingly: Yes Anticipated discharge: SNF - Inpatient Certification Based on my medical assessment, after consideration of the patient's comorbidities, presenting symptoms, or acuity I expect that the services needed warrant INPATIENT care.: Yes I certify that my determination is in accordance with my understanding of Medicare's requirements for reasonable and necessary INPATIENT services [42 CFR 412.3e].: Yes Medical Necessity: Failure to Improve With Outpatient Therapy, Need for IV Antibiotics
[2017-08-03] MEDS ORDERED: WARFARIN SODIUM 5 MG TABLET PO PRN (22:00)
[2017-08-03] MEDS: ATORVASTATIN CALCIUM 20 MG TABLET PO SCH (22:03)
[2017-08-03] MEDS: SENNOSIDES/DOCUSATE 8.6-50 MG 1 EACH TABLET PO SCH (22:03)
[2017-08-04] MEDS: IPRATROPIUM/ALBUTEROL 0.5-2.5 MG/3 ML AMPUL NEB SCH ×4 (02:36→20:36)
[2017-08-04] MEDS: OXYCODONE HCL IR 5 MG TABLET PO PRN ×3 (04:44→14:35)
[2017-08-04] MEDS: VANCOMYCIN HCL 1,250 MG in DEXTROSE 5%-WATER 250 ML IV SCH ×2 (04:48→15:00)
[2017-08-04 06:35] LABS: ARTERIAL BLOOD BASE EXCESS 7.5 mmol/L; ARTERIAL BLOOD H2CO3 1.55 mmol/L (1.05-1.35); ARTERIAL BLOOD HCO3 33.4 mmol/L (20-26); ARTERIAL BLOOD O2 SATURATION 87.9 % (94-98); ARTERIAL BLOOD PCO2 51.6 mmHg (35-45); ARTERIAL BLOOD PH 7.43 (7.35-7.45); ARTERIAL BLOOD PO2 53.1 mmHg (80-100)
[2017-08-04 06:36] LABS: ARTERIAL BLOOD FIO2 80%
[2017-08-04] MEDS: PIPERACILLIN SODIUM/TAZOBACTAM 4.5 GM in NORMAL SALINE 100 ML IV SCH ×3 (06:39→18:45)
[2017-08-04] MEDS: LEVOTHYROXINE SODIUM 0.1 MG TABLET PO SCH (06:40)
[2017-08-04] MEDS: LORATADINE 10 MG TABLET PO SCH (09:35)
[2017-08-04] MEDS: DOCUSATE SODIUM 100 MG CAPSULE PO SCH ×2 (09:35→18:21)
[2017-08-04] MEDS: GUAIFENESIN 600 MG TABLET.SA PO SCH ×2 (09:35→21:55)
[2017-08-04] MEDS: PREGABALIN 100 MG CAPSULE PO SCH ×3 (09:35→18:20)
--- NOTE | 2017-08-04 12:41 | PDOC PROGRESS REPORT ---
Subjective Progress Note for:: 08/04/17 Subjective:: Feeling okay today. She is comfortable today. No specific complaints. Reason For Visit: HCAP PNEUMONIA Physical Exam Vital Signs: Temp Pulse Resp BP Pulse Ox 97.4 F 45 L 33 H 99/83 L 97 08/04/17 07:36 08/04/17 07:40 08/04/17 12:00 08/04/17 07:36 08/04/17 12:00 Pulse Oximeter Continuous Start: 08/02/17 23: 46 Freq: RTQ4 Status: Active Document 08/04/17 12:00 [facility] (Rec: 08/04/17 12:13 [facility] [email or web address]) Pulse Oximetry Assessment Oxygen Saturation (92-100) 97 Oxygen Delivery Method Bi-pap Fraction of Inspired Oxygen (FIO2) 80 Equipment Usage Equipment in Use Continuous SpO2 Machine # 10 Intake & Output 08/03/17 08/04/17 08/05/17 06:59 06:59 06:59 Intake Total 1100 1360 Output Total 500 850 Balance 600 510 Weight 123.1 kg 120.1 kg General appearance: PRESENT: no acute distress, cooperative, morbidly obese Head exam: PRESENT: atraumatic, normocephalic Eye exam: PRESENT: conjunctiva pink, EOMI, PERRLA Neck exam: ABSENT: carotid bruit, JVD, lymphadenopathy, thyromegaly Respiratory exam: PRESENT: clear to auscultation jomar, unlabored. ABSENT: rales , rhonchi, wheezes Cardiovascular exam: PRESENT: RRR. ABSENT: diastolic murmur, rubs, systolic murmur GI/Abdominal exam: PRESENT: normal bowel sounds, soft. ABSENT: distended, guarding, mass, organolmegaly, rebound, tenderness Extremities exam: PRESENT: full ROM. ABSENT: calf tenderness, clubbing, pedal edema Musculoskeletal exam: ABSENT: ambulatory Neurological exam: PRESENT: alert, awake, oriented to person, oriented to place , oriented to time, oriented to situation, CN II-XII grossly intact. ABSENT: motor sensory deficit Psychiatric exam: PRESENT: appropriate affect, normal mood. ABSENT: homicidal ideation, suicidal ideation Results Laboratory Results: 08/03/17 06:10 08/03/17 06:10 08/04/17 06:25 Carbonic Acid 1.55 H HCO3/H2CO3 Ratio 21:1 ABG pH 7.43 ABG pCO2 51.6 H ABG pO2 53.1 L ABG HCO3 33.4 H ABG O2 Saturation 87.9 L ABG Base Excess 7.5 FiO2 80% Impressions: Chest X-Ray 08/02/17 20:54 IMPRESSION: New Patchy consolidation in the left lower lobe. Small left effusion. Venous Doppler Study 08/03/17 00:00 IMPRESSION: NO EVIDENCE DVT OR SVT IN THE LEFT ARM. Assessment & Plan - Diagnosis (1) Acute on chronic respiratory failure with hypoxia and hypercapnia Is this a current diagnosis for this admission?: Yes Plan: Likely due to pneumonia. Continue oxygen during the day. Continue BiPAP at night as well as as needed. (2) Left arm cellulitis Is this a current diagnosis for this admission?: Yes Plan: Continue to antibiotics. (3) Muscular dystrophy Is this a current diagnosis for this admission?: Yes Plan: Stable. (4) ANTONELLA (obstructive sleep apnea) Is this a current diagnosis for this admission?: Yes Plan: BiPAP at night, and when sleeping (5) PNA (pneumonia) Qualifiers: Pneumonia type: due to unspecified organism Laterality: left Lung location: lower lobe of lung Qualified Code(s): J18.1 - Lobar pneumonia, unspecified organism Is this a current diagnosis for this admission?: Yes Plan: She is on broad-spectrum antibiotics for HAP. De-escalate tomorrow. (6) Severe obesity (BMI 35.0-35.9 with comorbidity) Is this a current diagnosis for this admission?: Yes Plan: Stable (7) Chronic anticoagulation Is this a current diagnosis for this admission?: Yes Plan: Continue current dose of warfarin. INR is therapeutic. (8) Chronic pain Is this a current diagnosis for this admission?: Yes Plan: Continue narcotics as needed. (9) Closed fracture of right distal tibia Qualifiers: Encounter type: initial encounter Fracture alignment: nondisplaced Plan: Per ortho. (10) Hypothyroid Qualifiers: Hypothyroidism type: acquired Qualified Code(s): E03.9 - Hypothyroidism, unspecified Is this a current diagnosis for this admission?: Yes Plan: Continue levothyroxine - Time Time Spent with patient: 15-24 minutes Medications reviewed and adjusted accordingly: Yes Anticipated discharge: SNF - Inpatient Certification Based on my medical assessment, after consideration of the patient's comorbidities, presenting symptoms, or acuity I expect that the services needed warrant INPATIENT care.: Yes I certify that my determination is in accordance with my understanding of Medicare's requirements for reasonable and necessary INPATIENT services [42 CFR 412.3e].: Yes Medical Necessity: Significant Comorbidiites Make Outpatient Treatment Too Risky , Need for IV Antibiotics
[2017-08-04 13:48] LABS: VANCOMYCIN,TROUGH 40.4 ug/mL (5.0-20.0)
[2017-08-04] MEDS: MORPHINE SULFATE IR 15 MG TABLET PO PRN (18:21)
[2017-08-04] MEDS: ATORVASTATIN CALCIUM 20 MG TABLET PO SCH (21:54)
[2017-08-04] MEDS: SENNOSIDES/DOCUSATE 8.6-50 MG 1 EACH TABLET PO SCH (21:54)
[2017-08-04] MEDS ORDERED: NORMAL SALINE 500 ML IV ONE (22:30)
[2017-08-05] MEDS: PIPERACILLIN SODIUM/TAZOBACTAM 4.5 GM in NORMAL SALINE 100 ML IV SCH ×3 (00:18→11:05)
[2017-08-05] MEDS: IPRATROPIUM/ALBUTEROL 0.5-2.5 MG/3 ML AMPUL NEB SCH ×4 (02:29→20:58)
[2017-08-05] MEDS: LEVOTHYROXINE SODIUM 0.1 MG TABLET PO SCH (05:29)
[2017-08-05 05:30] LABS: INTERNATIONAL RATION (INR) 2.58
[2017-08-05] MEDS: LORATADINE 10 MG TABLET PO SCH (11:06)
[2017-08-05] MEDS: GUAIFENESIN 600 MG TABLET.SA PO SCH ×2 (11:06→21:37)
[2017-08-05] MEDS: DOCUSATE SODIUM 100 MG CAPSULE PO SCH ×2 (11:07→17:36)
[2017-08-05] MEDS: PREGABALIN 100 MG CAPSULE PO SCH ×3 (11:07→17:36)
--- NOTE | 2017-08-05 12:05 | PDOC PROGRESS REPORT ---
Subjective Progress Note for:: 08/05/17 Subjective:: Summary: 57-year-old female with a past medical history of muscular dystrophy, chronic hypoxemic respiratory failure on home O2 and CPAP at night, obstructive sleep apnea, hypertension, chronic low back pain, prior PE on chronic warfarin who was admitted to this facility from 07/30/2017 through 08/02/2017 for a tib- fib fracture. She was discharged the afternoon 08/02/2017 to [facility]. Upon arrival there, her O2 saturations were found to be 75% on 4 L of oxygen via nasal cannula. She reported that she may have been more short of breath over the last several days prior to this admission but denied fevers or chills. She also did not have a cough. In the emergency department her O2 saturation was 95% on BiPAP with FiO2 of 80%. Repeat chest x-ray demonstrated a left lower lobe infiltrate consistent with pneumonia. She was readmitted and started on broad-spectrum antibiotics for healthcare associated pneumonia. She has remained on BiPAP most of the day, and at night. Her oxygen saturation is between 88-90% on BiPAP with FiO2 of 80%. She is able to come off BiPAP and eat, but not for an extended period of time because she desaturates. According to her family, she has been relying on BiPAP more during the day over the past several months than she has in the past. 08.05.17 Feeling okay today. She is comfortable today. No specific complaints. Today, is day #3 of antibiotics. Reason For Visit: HCAP PNEUMONIA Physical Exam Vital Signs: Temp Pulse Resp BP Pulse Ox 98.1 F 60 19 106/59 L 90 L 08/05/17 07:52 08/05/17 08:08 08/05/17 08:08 08/05/17 07:52 08/05/17 08:08 Pulse Oximeter Continuous Start: 08/02/17 23: 46 Freq: RTQ4 Status: Active Document 08/05/17 08:08 [facility] (Rec: 08/05/17 11:22 [facility] [email or web address]) Pulse Oximetry Assessment Oxygen Saturation (92-100) 90 Oxygen Delivery Method Bi-pap Fraction of Inspired Oxygen (FIO2) 80 Equipment Usage Equipment in Use Continuous SpO2 Machine # 10 Intake & Output 08/04/17 08/05/17 08/06/17 06:59 06:59 06:59 Intake Total 1360 2071 Output Total 850 1500 Balance 510 571 Weight 120.1 kg 127.9 kg General appearance: PRESENT: no acute distress, morbidly obese Head exam: PRESENT: atraumatic, normocephalic Eye exam: PRESENT: EOMI, PERRLA Respiratory exam: PRESENT: clear to auscultation jomar, unlabored Cardiovascular exam: PRESENT: RRR. ABSENT: diastolic murmur, rubs, systolic murmur GI/Abdominal exam: PRESENT: normal bowel sounds, soft. ABSENT: distended, guarding, mass, organolmegaly, rebound, tenderness Musculoskeletal exam: PRESENT: other - Right lower leg splint Neurological exam: PRESENT: alert, awake, oriented to person, oriented to place , oriented to time, oriented to situation, CN II-XII grossly intact. ABSENT: motor sensory deficit Psychiatric exam: PRESENT: appropriate affect, normal mood. ABSENT: homicidal ideation, suicidal ideation Results Laboratory Results: 08/03/17 06:10 08/04/17 12:45 08/04/17 12:45 Creatinine 0.74 Est GFR ( Amer) > 60 Est GFR (Non-Af Amer) > 60 08/03/17 01:15 Catheterized Urine Urine Culture - Final NO GROWTH 2 DAYS Impressions: Chest X-Ray 08/02/17 20:54 IMPRESSION: New Patchy consolidation in the left lower lobe. Small left effusion. Venous Doppler Study 08/03/17 00:00 IMPRESSION: NO EVIDENCE DVT OR SVT IN THE LEFT ARM. Assessment & Plan - Diagnosis (1) Acute on chronic respiratory failure with hypoxia and hypercapnia Is this a current diagnosis for this admission?: Yes Plan: Likely due to pneumonia. Continue oxygen during the day. Continue BiPAP at night as well as as needed. she is asymptomatic. She has been afebrile with a normal WBC. Since her IV access is poor, I will change antibiotics to oral levafloxacin. Monitor INR. (2) Left arm cellulitis Is this a current diagnosis for this admission?: Yes Plan: Resolving. Continue to antibiotics. (3) Muscular dystrophy Is this a current diagnosis for this admission?: Yes Plan: Stable. (4) ANTONELLA (obstructive sleep apnea) Is this a current diagnosis for this admission?: Yes Plan: BiPAP at night, and prn to maintain saturations > 89 % (5) PNA (pneumonia) Qualifiers: Pneumonia type: due to unspecified organism Laterality: left Lung location: lower lobe of lung Qualified Code(s): J18.1 - Lobar pneumonia, unspecified organism Is this a current diagnosis for this admission?: Yes Plan: Change antibiotics to levofloxacin 500 mg daily. (6) Severe obesity (BMI 35.0-35.9 with comorbidity) Is this a current diagnosis for this admission?: Yes Plan: Stable (7) Chronic anticoagulation Is this a current diagnosis for this admission?: Yes Plan: Continue current dose of warfarin. INR is therapeutic. (8) Chronic pain Is this a current diagnosis for this admission?: Yes Plan: Continue narcotics as needed. Morphine seems to help her pain better than oxycodone. (9) Closed fracture of right distal tibia Qualifiers: Encounter type: initial encounter Fracture alignment: nondisplaced Plan: Per ortho. (10) Hypothyroid Qualifiers: Hypothyroidism type: acquired Qualified Code(s): E03.9 - Hypothyroidism, unspecified Is this a current diagnosis for this admission?: Yes Plan: Continue levothyroxine - Time Time Spent with patient: 15-24 minutes Medications reviewed and adjusted accordingly: Yes Anticipated discharge: SNF - Inpatient Certification Medical Necessity: Significant Comorbidiites Make Outpatient Treatment Too Risky , Need Close Monitoring Due to Risk of Patient Decompensation
[2017-08-05] MEDS ORDERED: LEVOFLOXACIN 500 MG TABLET PO ONE (13:00)
[2017-08-05] MEDS ORDERED: VANCOMYCIN HCL 1,500 MG in DEXTROSE 5%-WATER 250 ML IV SCH (13:00)
[2017-08-05] MEDS: MORPHINE SULFATE IR 15 MG TABLET PO PRN (13:39)
[2017-08-05] MEDS: SENNOSIDES/DOCUSATE 8.6-50 MG 1 EACH TABLET PO SCH (21:37)
[2017-08-05] MEDS: ATORVASTATIN CALCIUM 20 MG TABLET PO SCH (21:37)
[2017-08-05] MEDS ORDERED: WARFARIN SODIUM 5 MG TABLET PO SCH (22:00)
[2017-08-06] MEDS: IPRATROPIUM/ALBUTEROL 0.5-2.5 MG/3 ML AMPUL NEB SCH ×4 (01:09→20:25)
[2017-08-06] MEDS: LEVOTHYROXINE SODIUM 0.1 MG TABLET PO SCH (05:41)
[2017-08-06] MEDS: MORPHINE SULFATE IR 15 MG TABLET PO PRN ×3 (05:41→18:58)
[2017-08-06 05:46] LABS: ABSOLUTE BASOPHILS # (AUTO) 0.1 10^3/uL (0.0-0.2); ABSOLUTE EOSINOPHILS # (AUTO) 0.1 10^3/uL (0.0-0.6); ABSOLUTE LYMPHOCYTES (AUTO) 1.1 10^3/uL (0.5-4.7); ABSOLUTE MONOCYTES (AUTO) 1.1 10^3/uL (0.1-1.4); ABSOLUTE NEUT (AUTO) 8.8 10^3/uL (1.7-8.2); BASOPHILS % (AUTO) 0.7 % (0-2); EOSINOPHILS % (AUTO) 1.1 % (0-6); HEMATOCRIT 42.5 % (36.0-47.0); HEMOGLOBIN 13.6 g/dL (12.0-15.5); LYMPHOCYTES % (AUTO) 9.7 % (13-45); MEAN CORPUSCULAR VOLUME 88 fl (80-97); MONOCYTES % (AUTO) 9.7 % (3-13); PLATELET COUNT 247 10^3/uL (150-450); RED BLOOD COUNT 4.86 10^6/uL (3.72-5.28); RED CELL DISTRIBUTION WIDTH 17.4 % (11.5-14.0); SEGMENTED NEUTROPHILS % (AUTO) 78.8 % (42-78); TOTAL CELLS COUNTED % (AUTO) 100 %; WHITE BLOOD COUNT 11.1 10^3/uL (4.0-10.5)
[2017-08-06 05:57] LABS: INTERNATIONAL RATION (INR) 3.31; PROTHROMBIN TIME 35.2 SEC (11.4-15.4)
[2017-08-06 06:24] LABS: ANION GAP 9 (5-19); BLOOD UREA NITROGEN 16 mg/dL (7-20); CALCIUM 10.1 mg/dL (8.4-10.2); CARBON DIOXIDE 33 mmol/L (22-30); CHLORIDE 106 mmol/L (98-107); GLUCOSE 93 mg/dL (75-110); POTASSIUM 3.2 mmol/L (3.6-5.0); SODIUM 148.2 mmol/L (137-145)
[2017-08-06] MEDS ORDERED: POTASSIUM CHLORIDE 10 MEQ TABLET.SA PO ONE (07:44)
[2017-08-06] MEDS: LORATADINE 10 MG TABLET PO SCH (10:29)
[2017-08-06] MEDS: DOCUSATE SODIUM 100 MG CAPSULE PO SCH ×2 (10:29→15:13)
[2017-08-06] MEDS: LEVOFLOXACIN 500 MG TABLET PO SCH (10:30)
[2017-08-06] MEDS: PREGABALIN 100 MG CAPSULE PO SCH ×3 (10:30→18:58)
[2017-08-06] MEDS: GUAIFENESIN 600 MG TABLET.SA PO SCH ×2 (10:30→22:03)
--- NOTE | 2017-08-06 12:42 | EKG REPORT ---
SEVERITY:- ABNORMAL ECG - SINUS RHYTHM PAIRED VENTRICULAR PREMATURE COMPLEXES FIRST DEGREE AV BLOCK LEFT BUNDLE BRANCH BLOCK : Confirmed by: Izzy Morton MD 06-Aug-2017 12:41:57
--- NOTE | 2017-08-06 13:10 | PDOC PROGRESS REPORT ---
Subjective Progress Note for:: 08/06/17 Subjective:: The patient is a 57-year-old female with underlying muscular dystrophy. She is also morbidly obese. She has chronic hypoxemic respiratory failure and normally uses oxygen during the day and CPAP at night. She also has documented obstructive sleep apnea, hypertension, chronic low back pain and a prior PE for which she is on warfarin on a chronic basis. She was admitted here from 2016 through 08/02/2017 for a tibial left tibia fracture. She was discharged on 1227 but returned to the hospital secondary to low oxygen saturations. She has been BiPAP dependent ever since. Today is day #4 of antibiotics for healthcare associated pneumonia. Previous documentation in the chart notes that she has been more BiPAP dependent at home over the last several months. Reason For Visit: HCAP PNEUMONIA Physical Exam Vital Signs: Temp Pulse Resp BP Pulse Ox 99.4 F 88 37 H 135/67 H 78 L 08/06/17 11:59 08/06/17 11:59 08/06/17 11:59 08/06/17 11:59 08/06/17 11:59 Pulse Oximeter Continuous Start: 08/02/17 23: 46 Freq: RTQ4 Status: Active Document 08/06/17 04:17 [facility] (Rec: 08/06/17 04:18 [email or web address] [email or web address]) Pulse Oximetry Assessment Oxygen Saturation (92-100) 88 Oxygen Delivery Method Bi-pap Fraction of Inspired Oxygen (FIO2) 80 Equipment Usage Equipment in Use Continuous SpO2 Machine # 10 Intake & Output 08/05/17 08/06/17 08/07/17 06:59 06:59 06:59 Intake Total 2071 1122 413 Output Total 1500 1200 200 Balance 571 -78 213 Weight 127.9 kg 130 kg Additional comments: The patient is a morbidly obese white female. She is awake and able to speak through her BiPAP, but, is difficult to communicate. She has pressure dressings on her face secondary to irritation with the BiPAP mask. Her lungs definitely are diminished throughout all lung moore. Her cardiac exam is distant but appears to be regular. I do not appreciate any murmurs, gallops or rubs. The abdomen is obese but soft. The lower extremities do not demonstrate any pitting edema. The right lower extremity is in a soft cast. Results Laboratory Results: 08/06/17 05:08 08/06/17 05:08 08/06/17 08/06/17 05:08 05:08 WBC 11.1 H RBC 4.86 Hgb 13.6 Hct 42.5 MCV 88 MCH 28.0 MCHC 32.0 RDW 17.4 H Plt Count 247 Seg Neutrophils % 78.8 H Lymphocytes % 9.7 L Monocytes % 9.7 Eosinophils % 1.1 Basophils % 0.7 Absolute Neutrophils 8.8 H Absolute Lymphocytes 1.1 Absolute Monocytes 1.1 Absolute Eosinophils 0.1 Absolute Basophils 0.1 Sodium 148.2 H Potassium 3.2 L Chloride 106 Carbon Dioxide 33 H Anion Gap 9 BUN 16 Creatinine 0.80 Est GFR ( Amer) > 60 Est GFR (Non-Af Amer) > 60 Glucose 93 Calcium 10.1 08/03/17 01:15 Catheterized Urine Urine Culture - Final NO GROWTH 2 DAYS Impressions: Chest X-Ray 08/02/17 20:54 IMPRESSION: New Patchy consolidation in the left lower lobe. Small left effusion. Venous Doppler Study 08/03/17 00:00 IMPRESSION: NO EVIDENCE DVT OR SVT IN THE LEFT ARM. Assessment & Plan - Diagnosis (1) Acute on chronic respiratory failure with hypoxia and hypercapnia Is this a current diagnosis for this admission?: Yes (2) Left arm cellulitis Is this a current diagnosis for this admission?: Yes (3) Muscular dystrophy Is this a current diagnosis for this admission?: Yes (4) ANTONELLA (obstructive sleep apnea) Is this a current diagnosis for this admission?: Yes (5) PNA (pneumonia) Qualifiers: Pneumonia type: due to unspecified organism Laterality: left Lung location: lower lobe of lung Qualified Code(s): J18.1 - Lobar pneumonia, unspecified organism Is this a current diagnosis for this admission?: Yes (6) Chronic anticoagulation Is this a current diagnosis for this admission?: Yes (7) Chronic pain Is this a current diagnosis for this admission?: Yes (8) Closed fracture of right distal tibia Qualifiers: Encounter type: initial encounter Fracture alignment: nondisplaced (9) Hypothyroid Qualifiers: Hypothyroidism type: acquired Qualified Code(s): E03.9 - Hypothyroidism, unspecified Is this a current diagnosis for this admission?: Yes - Time Time Spent with patient: 25-34 minutes - Inpatient Certification Medical Necessity: Significant Comorbidiites Make Outpatient Treatment Too Risky , Need Close Monitoring Due to Risk of Patient Decompensation, Need for Pain Control, Risk of Complication if Not Cared For in Hospital - The patient is unfortunately not getting better in terms of her hypoxic respiratory failure. 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 Orthopedics is following for her closed tibia fracture of the right leg. She remains anticoagulated secondary to past medical history of pulmonary embolus. She remains on narcotics for her history of chronic pain. Today is day #4 of antibiotics which are covering pneumonia and the left arm cellulitis. She is receiving supplementation for hypothyroidism. Her prognosis is guarded. She remains DNR.
[2017-08-06] MEDS ORDERED: WARFARIN SODIUM 5 MG TABLET PO SCH (22:00)
[2017-08-06] MEDS ORDERED: WARFARIN SODIUM 7.5 MG TABLET PO SCH ×2 (22:00)
[2017-08-06] MEDS: ATORVASTATIN CALCIUM 20 MG TABLET PO SCH (22:03)
[2017-08-06] MEDS: SENNOSIDES/DOCUSATE 8.6-50 MG 1 EACH TABLET PO SCH (22:03)
[2017-08-06] MEDS: POLYETHYLENE GLYCOL 3350 POWDER 17 GM/1 PACKET PO PRN (22:09)
[2017-08-07] MEDS: IPRATROPIUM/ALBUTEROL 0.5-2.5 MG/3 ML AMPUL NEB SCH ×4 (02:03→20:11)
[2017-08-07 05:14] LABS: ABSOLUTE BASOPHILS # (AUTO) 0.1 10^3/uL (0.0-0.2); ABSOLUTE EOSINOPHILS # (AUTO) 0.2 10^3/uL (0.0-0.6); ABSOLUTE LYMPHOCYTES (AUTO) 1.4 10^3/uL (0.5-4.7); ABSOLUTE MONOCYTES (AUTO) 1.2 10^3/uL (0.1-1.4); ABSOLUTE NEUT (AUTO) 8.9 10^3/uL (1.7-8.2); BASOPHILS % (AUTO) 0.8 % (0-2); EOSINOPHILS % (AUTO) 1.8 % (0-6); HEMATOCRIT 41.7 % (36.0-47.0); HEMOGLOBIN 13.5 g/dL (12.0-15.5); LYMPHOCYTES % (AUTO) 11.9 % (13-45); MEAN CORPUSCULAR HEMOGLOBIN 28.4 pg (27.0-33.4); MEAN CORPUSCULAR HGB CONC 32.5 g/dL (32.0-36.0); MEAN CORPUSCULAR VOLUME 88 fl (80-97); PLATELET COUNT 231 10^3/uL (150-450); RED BLOOD COUNT 4.76 10^6/uL (3.72-5.28); RED CELL DISTRIBUTION WIDTH 17.3 % (11.5-14.0); SEGMENTED NEUTROPHILS % (AUTO) 75.5 % (42-78); TOTAL CELLS COUNTED % (AUTO) 100 %; WHITE BLOOD COUNT 11.7 10^3/uL (4.0-10.5)
[2017-08-07 05:32] LABS: INTERNATIONAL RATION (INR) 3.68; PROTHROMBIN TIME 38.2 SEC (11.4-15.4)
[2017-08-07 05:45] LABS: ANION GAP 7 (5-19); BLOOD UREA NITROGEN 17 mg/dL (7-20); CALCIUM 10.2 mg/dL (8.4-10.2); CARBON DIOXIDE 35 mmol/L (22-30); CHLORIDE 105 mmol/L (98-107); GLUCOSE 92 mg/dL (75-110); SODIUM 147.1 mmol/L (137-145)
[2017-08-07] MEDS: LEVOTHYROXINE SODIUM 0.1 MG TABLET PO SCH (05:56)
[2017-08-07 06:02] LABS: AMORPHOUS SEDIMENT,URINE TRACE /HPF; APPEARANCE,URINE SLIGHTLY-CLOUDY; BILIRUBIN,URINE NEGATIVE (NEGATIVE); COLOR,URINE YELLOW; GLUCOSE, URINE NEGATIVE (NEGATIVE); KETONES,URINE NEGATIVE (NEGATIVE); LEUKOCYTE ESTERASE,URINE NEGATIVE (NEGATIVE); NITRITE,URINE NEGATIVE (NEGATIVE); PROTEIN,URINE NEGATIVE (NEGATIVE); URINE SPECIFIC GRAVITY 1.016; UROBILINOGEN,URINE NEGATIVE mg/dL (<2.0)
[2017-08-07 06:08] LABS: POTASSIUM 4.1 mmol/L (3.6-5.0)
[2017-08-07] MEDS: LORATADINE 10 MG TABLET PO SCH (09:39)
[2017-08-07] MEDS: PREGABALIN 100 MG CAPSULE PO SCH ×3 (09:40→18:51)
[2017-08-07] MEDS: DOCUSATE SODIUM 100 MG CAPSULE PO SCH ×2 (09:40→18:50)
[2017-08-07] MEDS: LEVOFLOXACIN 500 MG TABLET PO SCH (09:40)
[2017-08-07] MEDS: GUAIFENESIN 600 MG TABLET.SA PO SCH ×2 (09:40→21:26)
[2017-08-07] MEDS: OXYCODONE HCL SR 10 MG TABLET PO SCH ×2 (10:04→21:25)
[2017-08-07] MEDS: OXYCODONE HCL IR 5 MG TABLET PO PRN ×3 (10:05→18:50)
--- NOTE | 2017-08-07 13:56 | PDOC PROGRESS REPORT ---
Subjective Progress Note for:: 08/07/17 Subjective:: The patient is a 57-year-old female with underlying muscular dystrophy. She is also morbidly obese. She has chronic hypoxemic respiratory failure and normally uses oxygen during the day and CPAP at night. She also has documented obstructive sleep apnea, hypertension, chronic low back pain and a prior PE for which she is on warfarin on a chronic basis. She was admitted here from 2016 through 08/02/2017 for a tibial left tibia fracture. She was discharged on 1227 but returned to the hospital secondary to low oxygen saturations. She has been BiPAP dependent ever since. Today is day #5 of antibiotics for healthcare associated pneumonia. Previous documentation in the chart notes that she has been more BiPAP dependent at home over the last several months. Today, I had a long discussion with the patient regarding end-of-life wishes. I explained that she has been BiPAP dependent for days to weeks. She is aware that without BiPAP supplemental oxygen that she will . She adamantly refuses a tracheostomy. She is a DNR. She does not want to be intubated. Her family is aware of her grave prognosis but they respect her wishes. Reason For Visit: HCAP PNEUMONIA Physical Exam Vital Signs: Temp Pulse Resp BP Pulse Ox 100.2 F 68 16 102/66 85 L 08/07/17 07:49 08/07/17 08:28 08/07/17 11:51 08/07/17 07:49 08/07/17 11:51 Pulse Oximeter Continuous Start: 08/02/17 23: 46 Freq: RTQ4 Status: Active Document 08/07/17 11:51 [facility] (Rec: 08/07/17 11:54 [facility] [email or web address]) Pulse Oximetry Assessment Oxygen Saturation (92-100) 85 Oxygen Delivery Method Bi-pap Fraction of Inspired Oxygen (FIO2) 100 Equipment Usage Equipment in Use Continuous SpO2 Machine # 10 Intake & Output 08/06/17 08/07/17 08/08/17 06:59 06:59 06:59 Intake Total 1122 773 Output Total 1200 900 Balance -78 -127 Weight 130 kg 124.7 kg Additional comments: Patient remains alert and oriented. Her cognition and mentation are appropriate. She is clearly able to state her wishes and gave informed consent. Her facial appearance is abnormal. She has the BiPAP mask in place. She has several abrasions on her face which are covered with a protective cushion bandage. Her oropharynx appears to be extremely dry. Her lungs are diminished throughout. She has poor air excursion. Her cardiac exam demonstrates a regular rate and rhythm without murmurs, gallops or rubs. The abdomen is obese but soft. The right and left lower extremity the feet are warm to touch. I do not detect any skin lesions or rashes. The right lower extremity is in a soft cast. Results Laboratory Results: 08/07/17 05:00 08/07/17 05:00 08/07/17 08/07/17 08/07/17 05:00 05:00 05:00 WBC 11.7 H RBC 4.76 Hgb 13.5 Hct 41.7 MCV 88 MCH 28.4 MCHC 32.5 RDW 17.3 H Plt Count 231 Seg Neutrophils % 75.5 Lymphocytes % 11.9 L Monocytes % 10.0 Eosinophils % 1.8 Basophils % 0.8 Absolute Neutrophils 8.9 H Absolute Lymphocytes 1.4 Absolute Monocytes 1.2 Absolute Eosinophils 0.2 Absolute Basophils 0.1 Sodium 147.1 H Potassium 4.1 Chloride 105 Carbon Dioxide 35 H Anion Gap 7 BUN 17 Creatinine 0.75 Est GFR ( Amer) > 60 Est GFR (Non-Af Amer) > 60 Glucose 92 Calcium 10.2 Urine Color YELLOW Urine Appearance SLIGHTLY-CLOUDY Urine pH 5.0 Ur Specific [place] 1.016 Urine Protein NEGATIVE Urine Glucose (UA) NEGATIVE Urine Ketones NEGATIVE Urine Blood MODERATE H Urine Nitrite NEGATIVE Ur Leukocyte Esterase NEGATIVE Urine WBC (Auto) 5 Urine RBC (Auto) 61 Impressions: Chest X-Ray 08/02/17 20:54 IMPRESSION: New Patchy consolidation in the left lower lobe. Small left effusion. Venous Doppler Study 08/03/17 00:00 IMPRESSION: NO EVIDENCE DVT OR SVT IN THE LEFT ARM. Assessment & Plan - Diagnosis (1) Acute on chronic respiratory failure with hypoxia and hypercapnia Is this a current diagnosis for this admission?: Yes Plan: The patient is doing extremely poorly. She remains dependent on BiPAP with an excessive amount of oxygen. We discussed end-of-life wishes. She does not want to be intubated. She will not consider tracheostomy. She has had 2 tracheostomies in the past and she understands what this would entail. We will continue BiPAP for now with high flow nasal cannula when she is eating or trying to converse with healthcare providers. (2) Left arm cellulitis Is this a current diagnosis for this admission?: Yes Plan: Resolving. (3) Muscular dystrophy Is this a current diagnosis for this admission?: Yes Plan: See plan for respiratory failure above. (4) ANTONELLA (obstructive sleep apnea) Is this a current diagnosis for this admission?: Yes (5) PNA (pneumonia) Qualifiers: Pneumonia type: due to unspecified organism Laterality: left Lung location: lower lobe of lung Qualified Code(s): J18.1 - Lobar pneumonia, unspecified organism Is this a current diagnosis for this admission?: Yes Plan: Continue levofloxacin. Repeat chest x-ray today. (6) Chronic anticoagulation Is this a current diagnosis for this admission?: Yes Plan: I am adjusting the patient's dose of Coumadin due to an elevated INR. Please note that pharmacy is not managing the patient's Coumadin at this time. (7) Chronic pain Is this a current diagnosis for this admission?: Yes Plan: Due to an ineffectual regimen I have made changes today based on her nurse's recommendations. She will be placed on what she was previously using prior to her recent transfer to the skilled facility as this appeared to be providing superior pain control. (8) Closed fracture of right distal tibia Qualifiers: Encounter type: initial encounter Fracture alignment: nondisplaced Plan: Orthopedics is following. (9) Hypothyroid Qualifiers: Hypothyroidism type: acquired Qualified Code(s): E03.9 - Hypothyroidism, unspecified Is this a current diagnosis for this admission?: Yes Plan: Continue supplementation. I will check levels if they have not been performed this hospitalization. - Time Time Spent with patient: 25-34 minutes - Inpatient Certification Medical Necessity: Significant Comorbidiites Make Outpatient Treatment Too Risky , Need Close Monitoring Due to Risk of Patient Decompensation, Risk of Complication if Not Cared For in Hospital
--- NOTE | 2017-08-07 14:51 | RADIOLOGY REPORT (SQ) ---
EXAM DESCRIPTION: CHEST SINGLE VIEW COMPLETED DATE/TIME: 08/07/2017 2:39 pm REASON FOR STUDY: Worsening respiratory status COMPARISON: 08/02/2017 EXAM PARAMETERS: NUMBER OF VIEWS: One view. TECHNIQUE: Single frontal radiographic view of the chest acquired. RADIATION DOSE: NA LIMITATIONS: None. FINDINGS: LUNGS AND PLEURA: Interval increase in airspace disease/ pleural effusion left lung. Stab le patchy airspace disease right lower lobe appear MEDIASTINUM AND HILAR STRUCTURES: No masses. Contour normal. HEART AND VASCULAR STRUCTURES: Heart STABLE in size. Normal vasculature. BONES: No acute findings. HARDWARE: None in the chest. OTHER: No other significant finding. IMPRESSION: INTERVAL WORSENING APPEARANCE OF THE CHEST WITH INCREASED AIRSPACE DISEASE/ PLEURAL EFFU ROSANGELA ON THE LEFT. TECHNICAL DOCUMENTATION: JOB ID: [id number] [employer]- All Rights Reserved
[2017-08-07] MEDS: ATORVASTATIN CALCIUM 20 MG TABLET PO SCH (21:26)
[2017-08-07] MEDS: SENNOSIDES/DOCUSATE 8.6-50 MG 1 EACH TABLET PO SCH (21:26)
[2017-08-07] MEDS ORDERED: WARFARIN SODIUM 2 MG TABLET PO SCH (22:00)
[2017-08-07] MEDS ORDERED: WARFARIN SODIUM 5 MG TABLET PO SCH (22:00)
[2017-08-08] MEDS: IPRATROPIUM/ALBUTEROL 0.5-2.5 MG/3 ML AMPUL NEB SCH ×4 (02:38→21:31)
[2017-08-08 05:11] LABS: INTERNATIONAL RATION (INR) 4.17
[2017-08-08 05:35] LABS: BLOOD UREA NITROGEN 19 mg/dL (7-20); CALCIUM 10.5 mg/dL (8.4-10.2); CHLORIDE 104 mmol/L (98-107); GLUCOSE 116 mg/dL (75-110)
[2017-08-08 05:41] LABS: ANION GAP 8 (5-19); CARBON DIOXIDE 38 mmol/L (22-30)
[2017-08-08 05:45] LABS: FREE T4 (FREE THYROXINE) 1.64 ng/dL (0.78-2.19)
[2017-08-08] MEDS: LEVOTHYROXINE SODIUM 0.1 MG TABLET PO SCH (05:52)
[2017-08-08 05:59] LABS: THYROID STIMULATING HORMONE 0.36 uIU/mL (0.47-4.68)
[2017-08-08] MEDS: OXYCODONE HCL IR 5 MG TABLET PO PRN ×4 (06:09→19:08)
[2017-08-08] MEDS: LORATADINE 10 MG TABLET PO SCH (10:03)
[2017-08-08] MEDS: DOCUSATE SODIUM 100 MG CAPSULE PO SCH ×2 (10:04→19:09)
[2017-08-08] MEDS: OXYCODONE HCL SR 10 MG TABLET PO SCH ×2 (10:04→21:45)
[2017-08-08] MEDS: LEVOFLOXACIN 500 MG TABLET PO SCH (10:04)
[2017-08-08] MEDS: PREGABALIN 100 MG CAPSULE PO SCH ×3 (10:04→19:09)
[2017-08-08] MEDS: GUAIFENESIN 600 MG TABLET.SA PO SCH ×2 (10:06→21:46)
[2017-08-08] MEDS: DEXTROSE 5%-WATER 1000 ML 1,000 ML IV PRN (10:08)
--- NOTE | 2017-08-08 17:48 | PDOC PROGRESS REPORT ---
Subjective Progress Note for:: 08/08/17 Subjective:: The patient is a 57-year-old female with underlying muscular dystrophy. She is also morbidly obese. She has chronic hypoxemic respiratory failure and normally uses oxygen during the day and CPAP at night. She also has documented obstructive sleep apnea, hypertension, chronic low back pain and a prior PE for which she is on warfarin on a chronic basis. She was admitted here from 2016 through 08/02/2017 for a tibial left tibia fracture. She was discharged on 08/02/17 but returned to the hospital secondary to low oxygen saturations. She has been BiPAP dependent ever since. Today is day #6 of antibiotics for healthcare associated pneumonia. Previous documentation in the chart notes that she has been more BiPAP dependent at home over the last several months. Yesterday, I had a long discussion with the patient regarding end-of-life wishes. I explained that she has been BiPAP dependent for days to weeks. She is aware that without BiPAP supplemental oxygen that she will . She adamantly refuses a tracheostomy. She is a DNR. She does not want to be intubated. Her family is aware of her grave prognosis but they respect her wishes. He, the patient confirms that she does not want aggressive measures done. She realizes that she is in a very bad situation. She understands that if she goes home she will likely at home. I have asked the patient's piercing mill operator, Dr. Deutsch to see her for any additional input. Reason For Visit: HCAP PNEUMONIA Physical Exam Vital Signs: Temp Pulse Resp BP Pulse Ox 99.8 F 110 H 22 H 112/52 L 88 L 08/08/17 12:18 08/08/17 14:06 08/08/17 16:00 08/08/17 12:18 08/08/17 16:00 Pulse Oximeter Continuous Start: 08/02/17 23: 46 Freq: RTQ4 Status: Active Document 08/08/17 16:00 LDA (Rec: 08/08/17 16:23 LDA [email or web address]) Pulse Oximetry Assessment Oxygen Saturation (92-100) 88 Oxygen Delivery Method Bi-pap Fraction of Inspired Oxygen (FIO2) 100 Equipment Usage Equipment in Use Continuous SpO2 Machine # 10 Intake & Output 08/07/17 08/08/17 08/09/17 06:59 06:59 06:59 Intake Total 773 891 Output Total 900 850 Balance -127 41 Weight 124.7 kg 123.3 kg Additional comments: The patient remains cognitively intact. Her facial appearance is noteworthy for the BiPAP machine. She also has multiple pads on her skin for pressure ulcers. Her lungs are fairly diminished throughout but I do not hear any adventitious sounds. Her cardiac exam demonstrates a regular rate and rhythm without murmurs, gallops or rubs. The abdomen is obese but soft. Bowel sounds are noted. The lower extremities are warm to touch. No significant pitting edema is present. No skin lesions or rashes are present. The area erythema of the left arm appears to be resolving. Results Laboratory Results: 08/07/17 05:00 08/08/17 04:50 08/08/17 08/08/17 04:50 04:50 Sodium 150.0 H Potassium 4.0 Chloride 104 Carbon Dioxide 38 H Anion Gap 8 BUN 19 Creatinine 0.68 Est GFR ( Amer) > 60 Est GFR (Non-Af Amer) > 60 Glucose 116 H Calcium 10.5 H Magnesium 2.0 TSH 0.36 L Free T4 1.64 08/05/17 20:45 Sputum Gram Stain - Final 08/05/17 20:45 Sputum Sputum Culture - Final C.albicans/C.dubliniensis Normal Brie Absent Impressions: Venous Doppler Study 08/03/17 00:00 IMPRESSION: NO EVIDENCE DVT OR SVT IN THE LEFT ARM. Chest X-Ray 08/07/17 13:56 IMPRESSION: INTERVAL WORSENING APPEARANCE OF THE CHEST WITH INCREASED AIRSPACE DISEASE/ PLEURAL EFFUSION ON THE LEFT. Assessment & Plan - Diagnosis (1) Acute on chronic respiratory failure with hypoxia and hypercapnia Is this a current diagnosis for this admission?: Yes Plan: The patient is doing extremely poorly. She remains dependent on BiPAP with an excessive amount of oxygen. We discussed end-of-life wishes. She does not want to be intubated. She will not consider tracheostomy. She has had 2 tracheostomies in the past and she understands what this would entail. We will continue BiPAP for now with high flow nasal cannula when she is eating or trying to converse with healthcare providers. I have asked for pulmonary, Dr. Deutsch to evaluate the patient as he has known her in the outpatient setting. (2) Left arm cellulitis Is this a current diagnosis for this admission?: Yes Plan: Resolving. (3) Muscular dystrophy Is this a current diagnosis for this admission?: Yes Plan: See plan for respiratory failure above. (4) ANTONELLA (obstructive sleep apnea) Is this a current diagnosis for this admission?: Yes (5) PNA (pneumonia) Qualifiers: Pneumonia type: due to unspecified organism Laterality: left Lung location: lower lobe of lung Qualified Code(s): J18.1 - Lobar pneumonia, unspecified organism Is this a current diagnosis for this admission?: Yes Plan: Continue levofloxacin. Repeat chest x-ray yesterday shows worsening. However, I think this is secondary to the patient's poor respiratory excursion. She is also rotated. I do not think that the patient would be able to withstand positioning for thoracentesis. Sending her for CT scan would also be very complicated. In light of the overall situation I do not think that any additional measures are necessary. If she does fever we can consider augmenting antibiotics. (6) Chronic anticoagulation Is this a current diagnosis for this admission?: Yes Plan: I am adjusting the patient's dose of Coumadin due to an elevated INR. Please note that pharmacy is not managing the patient's Coumadin at this time. Coumadin will be discontinued at this time until the INR returns to a more normal level. (7) Chronic pain Is this a current diagnosis for this admission?: Yes Plan: Due to an ineffectual regimen I have made changes today based on her nurse's recommendations. She will be placed on what she was previously using prior to her recent transfer to the skilled facility as this appeared to be providing superior pain control. (8) Closed fracture of right distal tibia Qualifiers: Encounter type: initial encounter Fracture alignment: nondisplaced Plan: Orthopedics is following. (9) Hypothyroid Qualifiers: Hypothyroidism type: acquired Qualified Code(s): E03.9 - Hypothyroidism, unspecified Is this a current diagnosis for this admission?: Yes Plan: Continue supplementation. I have recheck levels. TSH is slightly low, but, T4 is normal. I will therefore not change the dose of Synthroid. (10) Hypernatremia Is this a current diagnosis for this admission?: Yes Plan: Due to BiPAP dependency the patient is not able to eat or drink. I have started D5W. - Time Time Spent with patient: 25-34 minutes - Inpatient Certification Medical Necessity: Need Close Monitoring Due to Risk of Patient Decompensation, Need for IV Antibiotics, Risk of Complication if Not Cared For in Hospital
[2017-08-08] MEDS: ATORVASTATIN CALCIUM 20 MG TABLET PO SCH (21:46)
[2017-08-08] MEDS: ACETAMINOPHEN 325 MG TABLET PO PRN (21:46)
[2017-08-08] MEDS: SENNOSIDES/DOCUSATE 8.6-50 MG 1 EACH TABLET PO SCH (21:48)
[2017-08-09] MEDS: IPRATROPIUM/ALBUTEROL 0.5-2.5 MG/3 ML AMPUL NEB SCH ×4 (03:00→20:56)
[2017-08-09] MEDS: OXYCODONE HCL IR 5 MG TABLET PO PRN (04:56)
[2017-08-09] MEDS: LEVOTHYROXINE SODIUM 0.1 MG TABLET PO SCH (05:01)
[2017-08-09 05:39] LABS: INTERNATIONAL RATION (INR) 4.54; PROTHROMBIN TIME 44.9 SEC (11.4-15.4)
[2017-08-09 06:01] LABS: ANION GAP 8 (5-19); BLOOD UREA NITROGEN 17 mg/dL (7-20); CALCIUM 10.4 mg/dL (8.4-10.2); CARBON DIOXIDE 38 mmol/L (22-30); CHLORIDE 99 mmol/L (98-107); GLUCOSE 106 mg/dL (75-110); SODIUM 145.2 mmol/L (137-145)
[2017-08-09 07:16] LABS: APPEARANCE,URINE SLIGHTLY-CLOUDY; BILIRUBIN,URINE NEGATIVE (NEGATIVE); CALCIUM OXALATE CRYSTALS,URINE FEW /HPF; COLOR,URINE YELLOW; GLUCOSE, URINE NEGATIVE (NEGATIVE); KETONES,URINE NEGATIVE (NEGATIVE); LEUKOCYTE ESTERASE,URINE TRACE (NEGATIVE); NITRITE,URINE NEGATIVE (NEGATIVE); PROTEIN,URINE NEGATIVE (NEGATIVE); URINE SPECIFIC GRAVITY 1.012; UROBILINOGEN,URINE NEGATIVE mg/dL (<2.0)
[2017-08-09] MEDS: GUAIFENESIN 600 MG TABLET.SA PO SCH ×2 (10:51→22:14)
[2017-08-09] MEDS: LORATADINE 10 MG TABLET PO SCH (10:51)
[2017-08-09] MEDS: DOCUSATE SODIUM 100 MG CAPSULE PO SCH ×2 (10:51→18:16)
[2017-08-09] MEDS: LEVOFLOXACIN 500 MG TABLET PO SCH (10:51)
[2017-08-09] MEDS: PREGABALIN 100 MG CAPSULE PO SCH ×3 (10:52→18:16)
[2017-08-09] MEDS: DEXTROSE 5%-WATER 1000 ML 1,000 ML IV PRN (10:52)
[2017-08-09] MEDS: OXYCODONE HCL SR 10 MG TABLET PO SCH ×2 (10:52→22:14)
--- NOTE | 2017-08-09 12:02 | PDOC PROGRESS REPORT ---
Subjective Progress Note for:: 08/09/17 Subjective:: Patient is still extremely dyspneic on BiPAP support Patient has no chest pain no fever no chills The chest x-ray showed worsening of the left lower lobe infiltrate and a left pleural effusion Reason For Visit: HCAP PNEUMONIA Physical Exam Vital Signs: Temp Pulse Resp BP Pulse Ox 97.4 F 95 19 105/57 L 85 L 08/08/17 23:58 08/09/17 08:36 08/09/17 08:36 08/08/17 23:58 08/09/17 08:36 Pulse Oximeter Continuous Start: 08/02/17 23: 46 Freq: RTQ4 Status: Active Document 08/09/17 08:36 LDA (Rec: 08/09/17 10:27 LDA [email or web address]) Pulse Oximetry Assessment Oxygen Saturation (92-100) 85 Oxygen Flow Rate (L/min) 18 Oxygen Delivery Method Bi-pap Fraction of Inspired Oxygen (FIO2) 100 Equipment Usage Equipment in Use Continuous SpO2 Machine # n-10 Intake & Output 08/08/17 08/09/17 08/10/17 00:59 00:59 00:59 Intake Total 751 1317 1120 Output Total 900 900 Balance -595 798 5737 Weight 124.7 kg 123.3 kg 128.1 kg General appearance: PRESENT: mild distress, morbidly obese Head exam: PRESENT: atraumatic, normocephalic Eye exam: PRESENT: conjunctiva pink, EOMI, PERRLA. ABSENT: scleral icterus Neck exam: ABSENT: carotid bruit, JVD, lymphadenopathy, thyromegaly Respiratory exam: PRESENT: decreased breath sounds. ABSENT: rhonchi, wheezes Cardiovascular exam: PRESENT: RRR. ABSENT: diastolic murmur, rubs, systolic murmur Pulses: PRESENT: normal dorsalis pedis pul GI/Abdominal exam: PRESENT: normal bowel sounds, soft. ABSENT: distended, guarding, mass, organolmegaly, rebound, tenderness Extremities exam: PRESENT: +2 edema Results Laboratory Results: 08/07/17 05:00 08/09/17 04:52 08/09/17 08/09/17 04:52 06:49 Sodium 145.2 H Potassium 4.0 Chloride 99 Carbon Dioxide 38 H Anion Gap 8 BUN 17 Creatinine 0.71 Est GFR ( Amer) > 60 Est GFR (Non-Af Amer) > 60 Glucose 106 Calcium 10.4 H Urine Color YELLOW Urine Appearance SLIGHTLY-CLOUDY Urine pH 6.0 Ur Specific [place] 1.012 Urine Protein NEGATIVE Urine Glucose (UA) NEGATIVE Urine Ketones NEGATIVE Urine Blood LARGE H Urine Nitrite NEGATIVE Ur Leukocyte Esterase TRACE H Urine WBC (Auto) 15 Urine RBC (Auto) 134 Impressions: Venous Doppler Study 08/03/17 00:00 IMPRESSION: NO EVIDENCE DVT OR SVT IN THE LEFT ARM. Chest X-Ray 08/07/17 13:56 IMPRESSION: INTERVAL WORSENING APPEARANCE OF THE CHEST WITH INCREASED AIRSPACE DISEASE/ PLEURAL EFFUSION ON THE LEFT. Assessment & Plan - Diagnosis (1) Coagulopathy Is this a current diagnosis for this admission?: Yes Plan: INR is 4 patient has no evidence of bleeding ; continue to hold Coumadin (2) Acute on chronic respiratory failure with hypoxia and hypercapnia Is this a current diagnosis for this admission?: Yes Plan: Patient is still on BiPAP support With severe hypoxemia We do believe that fluid overload and left pleural effusion is almost certainly compromising the respiratory status at this time We will initiate Lasix IV discontinue IV fluids Order CT of the chest and echocardiogram ProBNP pending (3) Hypernatremia Is this a current diagnosis for this admission?: Yes (4) Muscular dystrophy Is this a current diagnosis for this admission?: Yes (5) ANTONELLA (obstructive sleep apnea) Is this a current diagnosis for this admission?: Yes (6) PNA (pneumonia) Qualifiers: Pneumonia type: due to unspecified organism Laterality: left Lung location: lower lobe of lung Qualified Code(s): J18.1 - Lobar pneumonia, unspecified organism Is this a current diagnosis for this admission?: Yes Plan: Cultures just showed Yuliya likely to be secondary to colonization continue Levaquin at this time Reevaluate patient's needs after CT is performed (7) Severe obesity (BMI 35.0-35.9 with comorbidity) Is this a current diagnosis for this admission?: Yes (8) Generalized muscle weakness Is this a current diagnosis for this admission?: Yes - Time Time Spent with patient: 25-34 minutes - Plan Summary Plan Summary: Reevaluate patient's management after CT chest and echocardiogram are performed
[2017-08-09] MEDS ORDERED: FUROSEMIDE INJ/PF 20 MG/2 ML SDV IV ONE (13:00)
--- NOTE | 2017-08-09 15:23 | XCELERA REPORT ---
[address] [address] Transthoracic Echocardiogram Report Name: CARLO KAUR Age: 57 yrs Gender: Female : 1960 Patient Status: Inpatient Patient Location: [address] [address] Study Date: 08/09/2017 01:43 PM Height: 63 in Weight: 282 lb BSA: 2.2 m2 Procedure: A complete two-dimensional transthoracic echocardiogram was performed (2D, M-mode, spectral and color flow Doppler). The study was technically difficult with many images being suboptimal in quality. Reason For Study: SOB Ordering Physician: WINSTON GODINEZ Performed By: Gema Mijares Interpretation Summary The study was technically difficult with many images being suboptimal in quality. The left ventricular ejection fraction is normal. Doppler measurements suggest impaired left ventricular relaxation, which is associated with grade I/IV or mild diastolic dysfunction There is mild concentric left ventricular hypertrophy. The left ventricle is grossly normal size. Wall motion cannot be accurately commented on, but no definite regional wall motion abnormalities noted. The right ventricle is mildly dilated. The right ventricular systolic function is normal. The right atrium is normal in size The left atrial size is normal. There is no mitral valve stenosis. There is a trace amount of mitral regurgitation There is no aortic valve stenosis No aortic regurgitation is present. There is a trace to mild amount of tricuspid regurgitation There is mild to moderate pulmonary hypertension by echo Right ventricular systolic pressure is estimated to be elevated at 40- 50mmHg. The aortic root is not well visualized. The inferior vena cava appeared normal and decreased < 50% with respiration (RAP 10-15 mmHg) Minimal pericardial effusion. MMode/2D Measurements & Calculations RVDd: 2.9 cm LVIDd: 4.2 cm FS: 40.1 % Ao root diam: 3.2 cm IVSd: 0.96 cm LVIDs: 2.5 cm EDV(Teich): 79.9 ml LVPWd: 1.0 cm ESV(Teich): 23.1 ml Ao root area: 8.1 cm2 EF(Teich): 71.1 % LA dimension: 2.6 cm LVOT diam: 2.1 cm LVOT area: 3.5 cm2 Doppler Measurements & Calculations MV E max tavares: MV P1/2t max tavares: Ao V2 max: LV V1 max P.9 cm/sec 57.6 cm/sec 154.4 cm/sec 4.7 mmHg MV A max tavares: MV P1/2t: 67.2 msec Ao max PG: LV V1 max: 65.5 cm/sec MVA(P1/2t): 3.3 cm2 9.5 mmHg 108.0 cm/sec MV E/A: 0.87 MV dec slope: RAVINDER(V,D): 2.4 cm2 251.0 cm/sec2 PA V2 max: TR max tavares: 76.5 cm/sec 297.3 cm/sec PA max PG: TR max P.3 mmHg 2.3 mmHg Left Ventricle The left ventricle is grossly normal size. There is mild concentric left ventricular hypertrophy. The left ventricular ejection fraction is normal. Doppler measurements suggest impaired left ventricular relaxation, which is associated with grade I/IV or mild diastolic dysfunction. Wall motion cannot be accurately commented on, but no definite regional wall motion abnormalities noted. Right Ventricle The right ventricle is mildly dilated. There is normal right ventricular wall thickness. The right ventricular systolic function is normal. Atria The right atrium is normal in size. The left atrial size is normal. Interarterial septum not well visualized and not well dopplered. Cannot comment on ASD/PFO presence. Mitral Valve The mitral valve is not well visualized. There is no mitral valve stenosis. There is a trace amount of mitral regurgitation. Aortic Valve The aortic valve is not well visualized secondary to technical limitations. There is no aortic valve stenosis. No aortic regurgitation is present. Tricuspid Valve The tricuspid valve is not well visualized secondary to technical limitations. There is no tricuspid stenosis. There is a trace to mild amount of tricuspid regurgitation. There is mild to moderate pulmonary hypertension by echo. Right ventricular systolic pressure is estimated to be elevated at 40-50mmHg. Pulmonic Valve The pulmonic valve is not well visualized. Great Vessels The aortic root is not well visualized. The inferior vena cava appeared normal and decreased < 50% with respiration (RAP 10-15 mmHg). Effusions Minimal pericardial effusion. : WINSTON GODINEZ > [place]
[2017-08-09 17:48] LABS: ARTERIAL BLOOD H2CO3 1.65 mmol/L (1.05-1.35); ARTERIAL BLOOD HCO3 37.2 mmol/L (20-26); ARTERIAL BLOOD O2 SATURATION 81.9 % (94-98); ARTERIAL BLOOD PCO2 54.9 mmHg (35-45); ARTERIAL BLOOD PH 7.45 (7.35-7.45); ARTERIAL BLOOD PO2 44.9 mmHg (80-100); ARTERIAL BLOOD TOTAL CO2 38.9 mmol/L (21-25)
[2017-08-09 17:49] LABS: ARTERIAL BLOOD FIO2 100%
[2017-08-09] MEDS: FUROSEMIDE INJ/PF 20 MG/2 ML SDV IV SCH (22:14)
[2017-08-09] MEDS: SENNOSIDES/DOCUSATE 8.6-50 MG 1 EACH TABLET PO SCH (22:14)
[2017-08-09] MEDS: ATORVASTATIN CALCIUM 20 MG TABLET PO SCH (22:14)
[2017-08-10] MEDS: IPRATROPIUM/ALBUTEROL 0.5-2.5 MG/3 ML AMPUL NEB SCH ×4 (02:18→20:39)
[2017-08-10] MEDS: LEVOTHYROXINE SODIUM 0.1 MG TABLET PO SCH (05:22)
[2017-08-10 07:34] LABS: PROTHROMBIN TIME 54.7 SEC (11.4-15.4)
[2017-08-10 07:35] LABS: INTERNATIONAL RATION (INR) 5.85
[2017-08-10] MEDS: OXYCODONE HCL IR 5 MG TABLET PO PRN ×2 (08:09→17:30)
[2017-08-10] MEDS: ACETAMINOPHEN 325 MG TABLET PO PRN (08:10)
[2017-08-10] MEDS: GUAIFENESIN 600 MG TABLET.SA PO SCH ×2 (10:58→22:29)
[2017-08-10] MEDS: OXYCODONE HCL SR 10 MG TABLET PO SCH ×2 (10:58→22:30)
[2017-08-10] MEDS: PREGABALIN 100 MG CAPSULE PO SCH ×3 (10:58→17:30)
[2017-08-10] MEDS: DOCUSATE SODIUM 100 MG CAPSULE PO SCH ×2 (10:58→17:31)
[2017-08-10] MEDS: LEVOFLOXACIN 500 MG TABLET PO SCH (10:58)
[2017-08-10] MEDS: LORATADINE 10 MG TABLET PO SCH (10:59)
[2017-08-10] MEDS: FUROSEMIDE INJ/PF 20 MG/2 ML SDV IV SCH ×2 (10:59→22:31)
[2017-08-10] MEDS ORDERED: PHYTONADIONE 5 MG TABLET PO ONE (14:43)
--- NOTE | 2017-08-10 14:47 | PDOC PROGRESS REPORT ---
Subjective Progress Note for:: 08/10/17 Subjective:: Since condition is pretty much unchanged Still dyspneic Still hypoxic on BiPAP support She has not been able as she is dependent on BiPAP 24 hours a day O2 sat is in the 80s Reason For Visit: HCAP PNEUMONIA Physical Exam Vital Signs: Temp Pulse Resp BP Pulse Ox 99.1 F 90 17 106/58 L 84 L 08/10/17 12:47 08/10/17 14:00 08/10/17 12:47 08/10/17 12:47 08/10/17 12:47 Pulse Oximeter Continuous Start: 08/02/17 23: 46 Freq: RTQ4 Status: Active Document 08/10/17 12:00 LDA (Rec: 08/10/17 12:29 LDA [email or web address]) Pulse Oximetry Assessment Oxygen Saturation (92-100) 86 Oxygen Delivery Method Bi-pap Fraction of Inspired Oxygen (FIO2) 100 Equipment Usage Equipment in Use Continuous SpO2 Machine # [id number] Intake & Output 08/09/17 08/10/17 08/11/17 00:59 00:59 00:59 Intake Total 1317 1172 20 Output Total 900 1225 600 Balance 417 -53 -580 Weight 123.3 kg 128.1 kg 128.3 kg General appearance: PRESENT: mild respiratory distress, on bipap support , morbidly obese Head exam: PRESENT: atraumatic, normocephalic Eye exam: PRESENT: conjunctiva pink, EOMI, PERRLA. ABSENT: scleral icterus Neck exam: ABSENT: carotid bruit, JVD, lymphadenopathy, thyromegaly Respiratory exam: PRESENT: decreased breath sounds. ABSENT: rhonchi, wheezes Cardiovascular exam: PRESENT: RRR. ABSENT: diastolic murmur, rubs, systolic murmur Pulses: PRESENT: normal dorsalis pedis pul GI/Abdominal exam: PRESENT: normal bowel sounds, soft. ABSENT: distended, guarding, mass, organolmegaly, rebound, tenderness Extremities exam: PRESENT: +2 edema Results Laboratory Results: 08/07/17 05:00 08/09/17 04:52 08/09/17 16:45 Carbonic Acid 1.65 H HCO3/H2CO3 Ratio 22:1 ABG pH 7.45 ABG pCO2 54.9 H ABG pO2 44.9 L ABG HCO3 37.2 H ABG O2 Saturation 81.9 L ABG Base Excess 11.0 FiO2 100% 08/09/17 04:52 NT-Pro-B Natriuret Pep 596 EKG Comments: Echocardiogram was performed; normal left ventricular function and mild diastolic dysfunction Impressions: Venous Doppler Study 08/03/17 00:00 IMPRESSION: NO EVIDENCE DVT OR SVT IN THE LEFT ARM. Chest X-Ray 08/07/17 13:56 IMPRESSION: INTERVAL WORSENING APPEARANCE OF THE CHEST WITH INCREASED AIRSPACE DISEASE/ PLEURAL EFFUSION ON THE LEFT. Assessment & Plan - Diagnosis (1) Coagulopathy Is this a current diagnosis for this admission?: Yes (2) Acute on chronic respiratory failure with hypoxia and hypercapnia Is this a current diagnosis for this admission?: Yes (3) Hypernatremia Is this a current diagnosis for this admission?: Yes (4) Muscular dystrophy Is this a current diagnosis for this admission?: Yes (5) ANTONELLA (obstructive sleep apnea) Is this a current diagnosis for this admission?: Yes (6) PNA (pneumonia) Qualifiers: Pneumonia type: due to unspecified organism Laterality: left Lung location: lower lobe of lung Qualified Code(s): J18.1 - Lobar pneumonia, unspecified organism Is this a current diagnosis for this admission?: Yes (7) Severe obesity (BMI 35.0-35.9 with comorbidity) Is this a current diagnosis for this admission?: Yes (8) Generalized muscle weakness Is this a current diagnosis for this admission?: Yes - Time Time Spent with patient: 15-24 minutes - Plan Summary Plan Summary: We will continue present management Continue antibiotics INR is still elevated at 5 Will prescribe 2.5 mg of vitamin K as it is in the upward trend We will order CAT scan of the chest without contrast;? Is there anything else we can do to improve the low oximetry Unfortunately it is likely the patient will not recover she is DNR/DNI Patient likely should be discharged with home BiPAP and hospice care
--- NOTE | 2017-08-10 21:44 | RADIOLOGY REPORT (SQ) ---
EXAM DESCRIPTION: CT CHEST WITHOUT COMPLETED DATE/TIME: 08/10/2017 9:30 pm REASON FOR STUDY: resp failure COMPARISON: Chest x-ray dated 08/07/2017. TECHNIQUE: CT scan performed of the chest without intravenous contrast. Images reviewed with lung, soft tissue and bone windows. Reconstructed coronal and sagittal MPR images reviewed. All images st ored on PACS. All CT scanners at this facility use dose modulation, iterative reconstruction, and/or weight based d osing when appropriate to reduce radiation dose to as low as reasonably achievable (ALARA). [facility]: Dose Right [facility]: CareDose [facility]: Dose Right [facility]: Teradose 4D [facility]: [employer] RADIATION DOSE: CT Rad equipment meets quality standard of care and radiation dose reduction techniq ues were employed. CTDIvol: 24.5 mGy. DLP: 883 mGy-cm. mGy. LIMITATIONS: No technical limitations. FINDINGS: LUNGS AND PLEURA: Moderate right pleural effusion with right lower lobe consolidation. Ex tensive airspace disease in the right upper lobe and right middle lobe. Marked volume loss on the le ft side with complete collapse and consolidation of the left lung. HILAR AND MEDIASTINAL STRUCTURES: No identified masses or abnormal nodes. No obvious aneurysm. HEART AND VASCULAR STRUCTURES: No aneurysm. No pericardial effusion. UPPER ABDOMEN: No significant findings. Limited exam. THYROID AND OTHER SOFT TISSUES: No masses. No adenopathy. BONES: No significant finding. HARDWARE: None in the chest. OTHER: No other significant findings. IMPRESSION: MODERATE RIGHT PLEURAL EFFUSION. RIGHT LOWER LOBE CONSOLIDATION. EXTENSIVE AIRSPACE DI SEASE THROUGHOUT THE RIGHT LUNG. MARKED VOLUME LOSS ON THE LEFT SIDE WITH COMPLETE COLLAPSE AND CONS OLIDATION OF THE LEFT LUNG. TECHNICAL DOCUMENTATION: JOB ID: [id number] Quality ID # [id number]: Final reports with documentation of one or more dose reduction techniques (e.g., Au tomated exposure control, adjustment of the mA and/or kV according to patient size, use of iterative reconstruction technique) 2010 [employer]- All Rights Reserved
[2017-08-10] MEDS: ATORVASTATIN CALCIUM 20 MG TABLET PO SCH (22:30)
[2017-08-10] MEDS: SENNOSIDES/DOCUSATE 8.6-50 MG 1 EACH TABLET PO SCH (22:30)
[2017-08-11] MEDS: IPRATROPIUM/ALBUTEROL 0.5-2.5 MG/3 ML AMPUL NEB SCH ×5 (01:13→20:55)
[2017-08-11] MEDS: OXYCODONE HCL IR 5 MG TABLET PO PRN ×3 (02:48→17:53)
[2017-08-11 05:53] LABS: INTERNATIONAL RATION (INR) 1.47
[2017-08-11 06:35] LABS: PROTHROMBIN TIME 18.7 SEC (11.4-15.4)
[2017-08-11] MEDS: LEVOTHYROXINE SODIUM 0.1 MG TABLET PO SCH (06:48)
[2017-08-11] MEDS: PREGABALIN 100 MG CAPSULE PO SCH ×3 (09:41→17:50)
[2017-08-11] MEDS: OXYCODONE HCL SR 10 MG TABLET PO SCH ×2 (09:41→21:47)
[2017-08-11] MEDS: LORATADINE 10 MG TABLET PO SCH (09:41)
[2017-08-11] MEDS: LEVOFLOXACIN 500 MG TABLET PO SCH (09:41)
[2017-08-11] MEDS: DOCUSATE SODIUM 100 MG CAPSULE PO SCH ×2 (09:41→17:50)
[2017-08-11] MEDS: GUAIFENESIN 600 MG TABLET.SA PO SCH ×2 (09:41→21:47)
[2017-08-11] MEDS: FUROSEMIDE INJ/PF 20 MG/2 ML SDV IV SCH (09:42)
[2017-08-11] MEDS: ACETAMINOPHEN 325 MG TABLET PO PRN ×2 (13:18→17:53)
--- NOTE | 2017-08-11 14:02 | PDOC CONSULTATION ---
Consultation Consult Date: 08/08/17 Attending physician:: NATHAN LOCKETT Consult reason:: acute/chronic resp failure History of Present Illness Admission Date/PCP: 08/02/17 23:35 CHANCE ROSARIO MD History of Present Illness: CARLO KAUR is a 57 year old female with past medical history of muscular dystrophy, chronic hypoxemic respiratory failure on home O2 and QHS CPAP, obstructive sleep apnea, hypertension, chronic low back pain, prior pulmonary embolus on chronic Coumadin who was admitted at this facility from 07/30/17 through 08/02/17 for a tib-fib fracture. Patient was discharged this afternoon to [facility] and was returned upon arrival when her sats were found to be 75% on 4 L of nasal cannula. Patient reports that she has been perhaps more short of breath over the last several days but denies any fevers or cough or productive sputum. She does report chills. She admits to nausea without vomiting and reports that her last bowel movements was several days ago. Patient also complains of left upper extremity erythema and pustule in the antecubital space. Patient is currently on 80% BiPAP maintaining a saturation of 95%. Repeat chest x-ray reveals a left lower lobe infiltrate consistent with pneumonia. She is referred to the hospitalist service for healthcare associated pneumonia. Past Medical History Cardiac Medical History: Reports: Hypertension - History of stress-induced cardiomyopathy in October 2014 Pulmonary Medical History: Reports: Chronic Obstructive Pulmonary Disease (COPD ) - ON C-PAP PRN, USES IT EXTENSIVELY, Respiratory Failure - Due to muscular dystrophy CPAP as needed, Sleep Apnea EENT Medical History: Reports: Ears, Nose Neurological Medical History: Reports: Seizures Endocrine Medical History: Reports: Hypothyroidism, Obesity GI Medical History: Reports: Gastroesophageal Reflux Disease Denies: Crohn's Disease, Ulcerative Colitis Musculoskeltal Medical History: Reports: Other - Muscular dystrophy Skin Medical History: Reports: Eczema Psychiatric Medical History: Denies: Depression Traumatic Medical History: Denies: Traumatic Brain Injury Hematology: Denies: Hemophilia, Sickle Cell Disease Infectious Medical History: Denies: Hepatitis B, Hepatitis C, HIV Past Surgical History Past Surgical History: Reports: Section - x2, Cholecystectomy Social History Information Source: [facility] Records Smoking Status: Former Smoker Passive smoke exposure as: Both Frequency of Alcohol Use: None Hx Recreational Drug Use: No Drugs: None Hx Prescription Drug Abuse: No Do you have pets?: No Have you been exposed to any sick contacts recently?: No Have you had any recent respiratory illnesses?: No Have you travelled outside of [place] in the past 12 months?: No - Advance Directive Resuscitation Status: Full Code Family History Family History: Other - Brother and niece with muscular dystrophy Parental Family History Reviewed: Yes Children Family History Reviewed: Yes Sibling(s) Family History Reviewed.: Yes Medication/Allergy Home Medications: Atorvastatin Calcium [Lipitor 20 mg Tablet] 20 mg PO QHS 08/03/17 Levothyroxine Sodium [Synthroid 0.1 mg Tablet] 0.1 mg PO DAILY 08/03/17 Loratadine [Claritin 10 mg Tablet] 10 mg PO DAILY 08/03/17 Warfarin Sodium [Coumadin 5 mg Tablet] 5 mg PO MOTUTHFRSA@219908/03/17 Warfarin Sodium [Coumadin 7.5 mg Tablet] 7.5 mg PO SUWE@219908/03/17 Allergies/Adverse Reactions: No Known Allergies Allergy (Verified 10/22/14 04:46) Review of Systems ROS unobtainable: Due to mental status Physical Exam Vital Signs: Temp Pulse Resp BP Pulse Ox 99.0 F 87 24 H 110/63 87 L 08/08/17 07:59 08/08/17 08:15 08/08/17 08:15 08/08/17 07:59 08/08/17 08:15 Pulse Oximeter Continuous Start: 08/02/17 23: 46 Freq: RTQ4 Status: Active Document 08/08/17 08:15 [facility] (Rec: 08/08/17 08:25 [facility] [id number]) Pulse Oximetry Assessment Oxygen Saturation (92-100) 87 Oxygen Delivery Method Bi-pap Fraction of Inspired Oxygen (FIO2) 100 Equipment Usage Equipment in Use Continuous SpO2 Machine # N 10 Intake & Output 08/07/17 08/08/17 08/09/17 06:59 06:59 06:59 Intake Total 773 891 Output Total 680 850 Balance -127 41 Weight 124.7 kg 123.3 kg General appearance: PRESENT: disheveled, mild distress, morbidly obese. ABSENT : no acute distress, cooperative, obese, severe distress Head exam: PRESENT: atraumatic, normocephalic Eye exam: PRESENT: conjunctiva pale, EOMI. ABSENT: conjunctival injection, conjunctiva pink, nystagmus, periorbital swelling, scleral icterus Mouth exam: PRESENT: dry mucosa, neck supple, tongue midline. ABSENT: laceration, moist Teeth exam: PRESENT: poor dentation Neck exam: ABSENT: carotid bruit, JVD, lymphadenopathy, thyromegaly, tracheal deviation, tracheostomy Respiratory exam: PRESENT: decreased breath sounds, prolonged expiratory phas, rales, rhonchi, symmetrical, wheezes. ABSENT: accessory muscle use, chest wall tenderness, clear to auscultation jomar, crackles, retraction, stridor Cardiovascular exam: PRESENT: RRR, +S1, +S2 Pulses: PRESENT: normal radial pulses GI/Abdominal exam: PRESENT: normal bowel sounds, soft. ABSENT: distended, guarding, mass, organolmegaly, rebound, tenderness Extremities exam: ABSENT: clubbing, joint swelling Musculoskeletal exam: ABSENT: deformity, dislocation Neurological exam: PRESENT: awake. ABSENT: alert Skin exam: PRESENT: dry, warm Results Laboratory Results: 08/07/17 05:00 08/08/17 04:50 08/08/17 08/08/17 04:50 04:50 Sodium 150.0 H Potassium 4.0 Chloride 104 Carbon Dioxide 38 H Anion Gap 8 BUN 19 Creatinine 0.68 Est GFR ( Amer) > 60 Est GFR (Non-Af Amer) > 60 Glucose 116 H Calcium 10.5 H Magnesium 2.0 TSH 0.36 L Free T4 1.64 08/05/17 20:45 Sputum Gram Stain - Final 08/05/17 20:45 Sputum Sputum Culture - Final C.albicans/C.dubliniensis Normal Brie Absent Impressions: Venous Doppler Study 08/03/17 00:00 IMPRESSION: NO EVIDENCE DVT OR SVT IN THE LEFT ARM. Chest X-Ray 08/07/17 13:56 IMPRESSION: INTERVAL WORSENING APPEARANCE OF THE CHEST WITH INCREASED AIRSPACE DISEASE/ PLEURAL EFFUSION ON THE LEFT. Assessment & Plan - Diagnosis (1) Acute on chronic respiratory failure with hypoxia and hypercapnia Is this a current diagnosis for this admission?: Yes Plan: unable to raise SAO2 (2) Muscular dystrophy Is this a current diagnosis for this admission?: Yes (3) ANTONELLA (obstructive sleep apnea) Is this a current diagnosis for this admission?: Yes (4) Severe obesity (BMI 35.0-35.9 with comorbidity) Is this a current diagnosis for this admission?: Yes (5) Encephalopathy Is this a current diagnosis for this admission?: Yes
--- NOTE | 2017-08-11 14:05 | PDOC PROGRESS REPORT ---
Subjective Progress Note for:: 08/09/17 Subjective:: obtunded Reason For Visit: HCAP PNEUMONIA Physical Exam Vital Signs: Temp Pulse Resp BP Pulse Ox 97.4 F 95 19 105/57 L 85 L 08/08/17 23:58 08/09/17 08:36 08/09/17 08:36 08/08/17 23:58 08/09/17 08:36 Pulse Oximeter Continuous Start: 08/02/17 23: 46 Freq: RTQ4 Status: Active Document 08/09/17 08:36 LDA (Rec: 08/09/17 10:27 LDA [email or web address]) Pulse Oximetry Assessment Oxygen Saturation (92-100) 85 Oxygen Flow Rate 18 Oxygen Delivery Method Bi-pap Fraction of Inspired Oxygen (FIO2) 100 Equipment Usage Equipment in Use Continuous SpO2 Machine # [id number] Intake & Output 08/08/17 08/09/17 08/10/17 06:59 06:59 06:59 Intake Total 891 2197 Output Total 850 450 Balance 41 1747 Weight 123.3 kg 128.1 kg General appearance: PRESENT: no acute distress, disheveled, morbidly obese, well -developed. ABSENT: cooperative, mild distress, obese, severe distress Head exam: PRESENT: atraumatic, normocephalic Eye exam: PRESENT: conjunctiva pale, periorbital swelling. ABSENT: conjunctival injection, conjunctiva pink, nystagmus, scleral icterus Mouth exam: PRESENT: dry mucosa, neck supple, tongue midline. ABSENT: laceration, moist Teeth exam: PRESENT: poor dentation Neck exam: ABSENT: carotid bruit, JVD, lymphadenopathy, thyromegaly, tracheal deviation, tracheostomy Respiratory exam: PRESENT: decreased breath sounds, prolonged expiratory phas, rales, rhonchi, symmetrical, unlabored, wheezes. ABSENT: accessory muscle use, chest wall tenderness, clear to auscultation jomar, crackles, retraction, stridor , tachypnea Cardiovascular exam: PRESENT: RRR, +S1, +S2 Pulses: PRESENT: normal radial pulses GI/Abdominal exam: PRESENT: normal bowel sounds, soft. ABSENT: distended, guarding, mass, organolmegaly, rebound, tenderness Extremities exam: ABSENT: clubbing, joint swelling Musculoskeletal exam: ABSENT: ambulatory, deformity, dislocation, normal inspection Neurological exam: PRESENT: awake. ABSENT: oriented to person, oriented to place, oriented to time, oriented to situation Skin exam: PRESENT: dry, warm Results Laboratory Results: 08/07/17 05:00 08/09/17 04:52 08/09/17 08/09/17 04:52 06:49 Sodium 145.2 H Potassium 4.0 Chloride 99 Carbon Dioxide 38 H Anion Gap 8 BUN 17 Creatinine 0.71 Est GFR ( Amer) > 60 Est GFR (Non-Af Amer) > 60 Glucose 106 Calcium 10.4 H Urine Color YELLOW Urine Appearance SLIGHTLY-CLOUDY Urine pH 6.0 Ur Specific [place] 1.012 Urine Protein NEGATIVE Urine Glucose (UA) NEGATIVE Urine Ketones NEGATIVE Urine Blood LARGE H Urine Nitrite NEGATIVE Ur Leukocyte Esterase TRACE H Urine WBC (Auto) 15 Urine RBC (Auto) 134 Impressions: Venous Doppler Study 08/03/17 00:00 IMPRESSION: NO EVIDENCE DVT OR SVT IN THE LEFT ARM. Chest X-Ray 08/07/17 13:56 IMPRESSION: INTERVAL WORSENING APPEARANCE OF THE CHEST WITH INCREASED AIRSPACE DISEASE/ PLEURAL EFFUSION ON THE LEFT. Assessment & Plan - Diagnosis (1) Acute on chronic respiratory failure with hypoxia and hypercapnia Is this a current diagnosis for this admission?: Yes Plan: unable to raise SAO2 (2) Muscular dystrophy Is this a current diagnosis for this admission?: Yes Plan: No change (3) ANTONELLA (obstructive sleep apnea) Is this a current diagnosis for this admission?: Yes Plan: On BiPAP (4) PNA (pneumonia) Qualifiers: Pneumonia type: due to unspecified organism Laterality: left Lung location: lower lobe of lung Qualified Code(s): J18.1 - Lobar pneumonia, unspecified organism Is this a current diagnosis for this admission?: Yes (5) Encephalopathy Is this a current diagnosis for this admission?: Yes Plan: Obtunded
--- NOTE | 2017-08-11 14:08 | PDOC PROGRESS REPORT ---
Subjective Progress Note for:: 08/10/17 Subjective:: obtunded Reason For Visit: HCAP PNEUMONIA Physical Exam Vital Signs: Temp Pulse Resp BP Pulse Ox 98.7 F 109 H 21 H 101/53 L 82 L 08/10/17 07:18 08/10/17 08:54 08/10/17 08:54 08/10/17 07:18 08/10/17 08:54 Pulse Oximeter Continuous Start: 08/02/17 23: 46 Freq: RTQ4 Status: Active Document 08/10/17 08:54 LDA (Rec: 08/10/17 09:09 LDA [email or web address]) Pulse Oximetry Assessment Oxygen Saturation (92-100) 82 Oxygen Delivery Method AVAP Fraction of Inspired Oxygen (FIO2) 100 Equipment Usage Equipment in Use Continuous SpO2 Machine # 10 Intake & Output 08/09/17 08/10/17 08/11/17 06:59 06:59 06:59 Intake Total 2197 72 Output Total 450 1825 Balance 1747 -1753 Weight 128.1 kg 128.3 kg General appearance: PRESENT: no acute distress, disheveled, obese. ABSENT: cooperative, mild distress, morbidly obese, severe distress Head exam: PRESENT: atraumatic, normocephalic Eye exam: PRESENT: conjunctiva pale, EOMI. ABSENT: conjunctival injection, conjunctiva pink Mouth exam: PRESENT: dry mucosa, neck supple, tongue midline. ABSENT: laceration, moist Teeth exam: PRESENT: poor dentation Neck exam: ABSENT: carotid bruit, JVD, lymphadenopathy, thyromegaly, tracheal deviation, tracheostomy Respiratory exam: PRESENT: accessory muscle use, chest wall tenderness, clear to auscultation jomar, crackles, decreased breath sounds, prolonged expiratory phas, rales, rhonchi, symmetrical, unlabored, wheezes. ABSENT: retraction, stridor, tachypnea Cardiovascular exam: PRESENT: RRR, +S1, +S2 Pulses: PRESENT: normal radial pulses GI/Abdominal exam: PRESENT: normal bowel sounds, soft. ABSENT: distended, guarding, mass, organolmegaly, rebound, tenderness Extremities exam: ABSENT: clubbing, joint swelling Musculoskeletal exam: ABSENT: ambulatory, deformity, dislocation, normal inspection Neurological exam: ABSENT: oriented to person, oriented to place, oriented to time, oriented to situation Skin exam: PRESENT: dry, warm Results Laboratory Results: 08/07/17 05:00 08/09/17 04:52 08/09/17 16:45 Carbonic Acid 1.65 H HCO3/H2CO3 Ratio 22:1 ABG pH 7.45 ABG pCO2 54.9 H ABG pO2 44.9 L ABG HCO3 37.2 H ABG O2 Saturation 81.9 L ABG Base Excess 11.0 FiO2 100% 08/09/17 04:52 NT-Pro-B Natriuret Pep 596 Impressions: Venous Doppler Study 08/03/17 00:00 IMPRESSION: NO EVIDENCE DVT OR SVT IN THE LEFT ARM. Chest X-Ray 08/07/17 13:56 IMPRESSION: INTERVAL WORSENING APPEARANCE OF THE CHEST WITH INCREASED AIRSPACE DISEASE/ PLEURAL EFFUSION ON THE LEFT. Assessment & Plan - Diagnosis (1) Acute on chronic respiratory failure with hypoxia and hypercapnia Is this a current diagnosis for this admission?: Yes Plan: Unchanged unable to raise SaO2 greater than 90% (2) Muscular dystrophy Is this a current diagnosis for this admission?: Yes Plan: Unchanged (3) ANTONELLA (obstructive sleep apnea) Is this a current diagnosis for this admission?: Yes Plan: Currently on BiPAP (4) PNA (pneumonia) Qualifiers: Pneumonia type: due to unspecified organism Laterality: left Lung location: lower lobe of lung Qualified Code(s): J18.1 - Lobar pneumonia, unspecified organism Is this a current diagnosis for this admission?: Yes Plan: Sputum, blood, urine cultures all nondiagnostic at this time (5) Severe obesity (BMI 35.0-35.9 with comorbidity) Is this a current diagnosis for this admission?: Yes Plan: Unchanged
--- NOTE | 2017-08-11 14:10 | PDOC PROGRESS REPORT ---
Subjective Progress Note for:: 08/11/17 Subjective:: obtunded Reason For Visit: HCAP PNEUMONIA Physical Exam Vital Signs: Temp Pulse Resp BP Pulse Ox 97.7 F 84 22 H 135/104 H 85 L 08/11/17 07:29 08/11/17 07:29 08/11/17 07:29 08/11/17 07:29 08/11/17 07:29 Pulse Oximeter Continuous Start: 08/02/17 23: 46 Freq: RTQ4 Status: Active Document 08/11/17 04:18 EAL (Rec: 08/11/17 04:19 EAL [email or web address]) Pulse Oximetry Assessment Oxygen Saturation (92-100) 82 Oxygen Delivery Method AVAP Fraction of Inspired Oxygen (FIO2) 100 Equipment Usage Equipment in Use Continuous SpO2 Machine # 10 Intake & Output 08/10/17 08/11/17 08/12/17 06:59 06:59 06:59 Intake Total 72 545 Output Total 1825 1150 Balance -1753 -605 Weight 128.3 kg 123.8 kg General appearance: PRESENT: no acute distress, disheveled, obese. ABSENT: cooperative, mild distress, morbidly obese, severe distress Head exam: PRESENT: atraumatic, normocephalic Eye exam: PRESENT: conjunctiva pale. ABSENT: conjunctival injection, conjunctiva pink, nystagmus, periorbital swelling Mouth exam: PRESENT: dry mucosa, neck supple, tongue midline. ABSENT: laceration, moist Teeth exam: PRESENT: poor dentation Neck exam: ABSENT: carotid bruit, JVD, lymphadenopathy, thyromegaly, tracheal deviation, tracheostomy Respiratory exam: PRESENT: decreased breath sounds, prolonged expiratory phas, rales, rhonchi, symmetrical, wheezes. ABSENT: accessory muscle use, chest wall tenderness, clear to auscultation jomar, crackles, retraction, stridor, tachypnea Cardiovascular exam: PRESENT: RRR, +S1, +S2 Pulses: PRESENT: normal radial pulses GI/Abdominal exam: PRESENT: diminished bowel sounds, soft Extremities exam: ABSENT: clubbing, full ROM, joint swelling Musculoskeletal exam: ABSENT: ambulatory, deformity, dislocation, full ROM Neurological exam: ABSENT: oriented to person, oriented to place, oriented to time, oriented to situation Skin exam: PRESENT: dry, warm Results Laboratory Results: 08/07/17 05:00 08/09/17 04:52 08/09/17 04:52 NT-Pro-B Natriuret Pep 596 Impressions: Venous Doppler Study 08/03/17 00:00 IMPRESSION: NO EVIDENCE DVT OR SVT IN THE LEFT ARM. Chest X-Ray 08/07/17 13:56 IMPRESSION: INTERVAL WORSENING APPEARANCE OF THE CHEST WITH INCREASED AIRSPACE DISEASE/ PLEURAL EFFUSION ON THE LEFT. Chest CT 08/10/17 14:47 IMPRESSION: MODERATE RIGHT PLEURAL EFFUSION. RIGHT LOWER LOBE CONSOLIDATION. EXTENSIVE AIRSPACE DISEASE THROUGHOUT THE RIGHT LUNG. MARKED VOLUME LOSS ON THE LEFT SIDE WITH COMPLETE COLLAPSE AND CONSOLIDATION OF THE LEFT LUNG. Assessment & Plan - Diagnosis (1) Acute on chronic respiratory failure with hypoxia and hypercapnia Is this a current diagnosis for this admission?: Yes Plan: Unchanged unable to raise SaO2 greater than 90% (2) Muscular dystrophy Is this a current diagnosis for this admission?: Yes Plan: Unchanged (3) ANTONELLA (obstructive sleep apnea) Is this a current diagnosis for this admission?: Yes Plan: Currently on BiPAP (4) PNA (pneumonia) Qualifiers: Pneumonia type: due to unspecified organism Laterality: left Lung location: lower lobe of lung Qualified Code(s): J18.1 - Lobar pneumonia, unspecified organism Is this a current diagnosis for this admission?: Yes Plan: Sputum, blood, urine cultures all nondiagnostic at this time
[2017-08-11] MEDS ORDERED: VANCOMYCIN HCL 0 MG in DEXTROSE 5%-WATER 250 ML IV NR (14:45)
[2017-08-11] MEDS ORDERED: IMIPENEM/CILASTATIN SODIUM 1,000 MG in NORMAL SALINE 250 ML IV SCH (15:00)
[2017-08-11] MEDS ORDERED: FLUCONAZOLE 200 MG/NS RTU 100 ML IV ONE (15:00)
[2017-08-11] MEDS ORDERED: LIDOCAINE 1% INJ-PF (10 MG/ML) 30 ML SDV ONE (15:42)
--- NOTE | 2017-08-11 17:05 | RADIOLOGY REPORT (SQ) ---
EXAM DESCRIPTION: CHEST SINGLE VIEW COMPLETED DATE/TIME: 08/11/2017 4:55 pm REASON FOR STUDY: central line placement, bipap dependent COMPARISON: CT scan 08/10/2017 NUMBER OF VIEWS: One view. TECHNIQUE: Single frontal radiographic view of the chest acquired. LIMITATIONS: None FINDINGS: Central venous access catheter placed via right subclavian approach. Catheter tip at acr oss the midline in the left subclavian vein.. No pneumothorax. Radiographic appearance of the chest otherwise stable. IMPRESSION: Venous access catheter via right subclavian approach, crosses the midline is in the left subclavian vein. Bilateral pleural effusions opacities. TECHNICAL DOCUMENTATION: JOB ID: [id number] [employer]- All Rights Reserved
--- NOTE | 2017-08-11 17:38 | OPERATIVE REPORT E ---
Operative Report NAME: CARLO KAUR : 1960 AGE: 57Y DATE OF SURGERY: 08/11/2017 ROOM: 335 PREOPERATIVE DIAGNOSIS: Poor veins for IV access. POSTOPERATIVE DIAGNOSIS: Poor veins for IV access. OPERATION: Placement of right subclavian vein triple-lumen catheter. SURGEON: POLLY MANCIA M.D. ANESTHESIA: Local. INDICATION: This is a 57-year-old female who needed IV access for antibiotics. She only has a 24-gauge needle on the breast vein. DESCRIPTION OF PROCEDURE: The patient was placed in a slight Trendelenburg position and the right upper chest prepped and draped in the usual sterile fashion. Local anesthesia infiltrated right infraclavicular area and the right subclavian was then punctured and a guidewire placed through the needle towards the area of the superior vena cava. The puncture site was then enlarged and the needle removed. A triple-lumen catheter was then inserted through the guidewire to a distance of about 17 cm. The guidewire was removed and all the 3 ports showed egress of blood and easy ingress of saline. The catheter was then anchored to the skin with 3-0 silk. A Biopatch was then placed at the entry site. A transparent dressing was then placed over the Biopatch and the catheter. A chest x-ray will be obtained for placement and to rule out any pneumothorax. DICTATING PHYSICIAN: POLLY MANCIA M.D. [id number] PHY#: [id number] ID: [id number] JOB#: [id number] ACCT: [id number] cc:POLLY MANCIA M.D. >
[2017-08-11] MEDS ORDERED: VANCOMYCIN HCL 1,500 MG in DEXTROSE 5%-WATER 250 ML IV SCH (18:00)
--- NOTE | 2017-08-11 19:26 | PDOC PROGRESS REPORT ---
Subjective Progress Note for:: 08/11/17 Subjective:: Patient is still in moderate to severe respiratory distress BiPAP dependent CT of the chest was performed yesterday showing bilateral extensive pneumonia with collapse and consolidation of the left lung Antibiotic management has been reevaluated Reason For Visit: HCAP PNEUMONIA Physical Exam Vital Signs: Temp Pulse Resp BP Pulse Ox 97.7 F 88 19 106/79 84 L 08/11/17 07:29 08/11/17 16:57 08/11/17 16:57 08/11/17 13:16 08/11/17 16:57 Pulse Oximeter Continuous Start: 08/02/17 23: 46 Freq: RTQ4 Status: Active Document 08/11/17 16:57 CBR (Rec: 08/11/17 17:04 CBR [email or web address]) Pulse Oximetry Assessment Oxygen Saturation (92-100) 84 Oxygen Delivery Method AVAP Fraction of Inspired Oxygen (FIO2) 100 Equipment Usage Equipment in Use Continuous SpO2 Machine # [id number] Intake & Output 08/10/17 08/11/17 08/12/17 00:59 00:59 00:59 Intake Total 9509 883 8087 Output Total 1225 1350 1500 Balance -53 -840 27 Weight 128.1 kg 128.3 kg 123.8 kg General appearance: PRESENT: mild distress, morbidly obese Head exam: PRESENT: atraumatic Eye exam: PRESENT: conjunctiva pink, EOMI, PERRLA. ABSENT: scleral icterus Neck exam: ABSENT: carotid bruit, JVD, lymphadenopathy, thyromegaly Respiratory exam: PRESENT: decreased breath sounds, wheezes. ABSENT: accessory muscle use Cardiovascular exam: PRESENT: RRR. ABSENT: diastolic murmur, rubs, systolic murmur Pulses: PRESENT: normal dorsalis pedis pul GI/Abdominal exam: PRESENT: normal bowel sounds, soft. ABSENT: distended, guarding, mass, organolmegaly, rebound, tenderness Neurological exam: PRESENT: alert, awake, oriented to person, oriented to place , oriented to time, oriented to situation, CN II-XII grossly intact. ABSENT: motor sensory deficit Results Laboratory Results: 08/07/17 05:00 08/09/17 04:52 08/09/17 04:52 NT-Pro-B Natriuret Pep 596 Impressions: Venous Doppler Study 08/03/17 00:00 IMPRESSION: NO EVIDENCE DVT OR SVT IN THE LEFT ARM. Chest CT 08/10/17 14:47 IMPRESSION: MODERATE RIGHT PLEURAL EFFUSION. RIGHT LOWER LOBE CONSOLIDATION. EXTENSIVE AIRSPACE DISEASE THROUGHOUT THE RIGHT LUNG. MARKED VOLUME LOSS ON THE LEFT SIDE WITH COMPLETE COLLAPSE AND CONSOLIDATION OF THE LEFT LUNG. Chest X-Ray 08/11/17 00:00 IMPRESSION: Venous access catheter via right subclavian approach, crosses the midline is in the left subclavian vein. Bilateral pleural effusions opacities. Assessment & Plan - Diagnosis (1) Coagulopathy Is this a current diagnosis for this admission?: Yes (2) Acute on chronic respiratory failure with hypoxia and hypercapnia Is this a current diagnosis for this admission?: Yes (3) Hypernatremia Is this a current diagnosis for this admission?: Yes (4) Muscular dystrophy Is this a current diagnosis for this admission?: Yes (5) ANTONELLA (obstructive sleep apnea) Is this a current diagnosis for this admission?: Yes (6) PNA (pneumonia) Qualifiers: Pneumonia type: due to unspecified organism Laterality: left Lung location: lower lobe of lung Qualified Code(s): J18.1 - Lobar pneumonia, unspecified organism Is this a current diagnosis for this admission?: Yes Plan: Extensive pneumonia bilaterally Patient is a candidate for bronchoscopy will discuss the case with Dr. Deutsch Fortunately patient is DNR/DNI and she likely would need intubation for bronchoscopy DNR/DNI would have to be reversed Change antibiotic management to imipenem and vancomycin Follow patient clinically (7) Severe obesity (BMI 35.0-35.9 with comorbidity) Is this a current diagnosis for this admission?: Yes (8) Generalized muscle weakness Is this a current diagnosis for this admission?: Yes - Time Time Spent with patient: 25-34 minutes
[2017-08-11] MEDS: VANCOMYCIN HCL 1,500 MG in DEXTROSE 5%-WATER 250 ML IV SCH (20:07)
[2017-08-11] MEDS: ACETYLCYSTEINE 10% NEB 400 MG/4 ML VIAL NEB SCH (20:55)
[2017-08-11] MEDS: SENNOSIDES/DOCUSATE 8.6-50 MG 1 EACH TABLET PO SCH (21:47)
[2017-08-11] MEDS: ATORVASTATIN CALCIUM 20 MG TABLET PO SCH (21:47)
[2017-08-11] MEDS ORDERED: WARFARIN SODIUM 4 MG TABLET PO SCH (22:00)
[2017-08-11] MEDS: IMIPENEM/CILASTATIN SODIUM 1,000 MG in NORMAL SALINE 250 ML IV SCH (23:32)
[2017-08-12] MEDS: IPRATROPIUM/ALBUTEROL 0.5-2.5 MG/3 ML AMPUL NEB SCH ×6 (00:23→20:58)
[2017-08-12] MEDS: LEVALBUTEROL HCL NEB 1.25 MG/3 ML AMPUL NEB PRN (02:27)
[2017-08-12] MEDS: ACETYLCYSTEINE 10% NEB 400 MG/4 ML VIAL NEB SCH ×4 (02:27→20:58)
[2017-08-12] MEDS: LEVOTHYROXINE SODIUM 0.1 MG TABLET PO SCH (05:33)
[2017-08-12] MEDS: IMIPENEM/CILASTATIN SODIUM 1,000 MG in NORMAL SALINE 250 ML IV SCH ×4 (05:38→23:14)
[2017-08-12 06:02] LABS: INTERNATIONAL RATION (INR) 1.14; PROTHROMBIN TIME 15.4 SEC (11.4-15.4)
[2017-08-12] MEDS: VANCOMYCIN HCL 1,500 MG in DEXTROSE 5%-WATER 250 ML IV SCH ×2 (09:12→19:59)
[2017-08-12] MEDS: LORATADINE 10 MG TABLET PO SCH (09:13)
[2017-08-12] MEDS: DOCUSATE SODIUM 100 MG CAPSULE PO SCH ×2 (09:13→18:20)
[2017-08-12] MEDS: FLUCONAZOLE 200 MG/NS RTU 100 ML IV SCH (09:13)
[2017-08-12] MEDS: GUAIFENESIN 600 MG TABLET.SA PO SCH ×2 (09:13→21:38)
[2017-08-12] MEDS: OXYCODONE HCL SR 10 MG TABLET PO SCH ×2 (09:14→21:39)
[2017-08-12] MEDS: PREGABALIN 100 MG CAPSULE PO SCH ×3 (09:14→18:20)
[2017-08-12] MEDS ORDERED: DEXTROSE 5%-WATER 1000 ML 1,000 ML IV PRN (13:10)
--- NOTE | 2017-08-12 13:18 | PDOC PROGRESS REPORT ---
Subjective Progress Note for:: 08/12/17 Subjective:: Patient with muscular dystrophy bipap dependent now with worsening pneumonia and with collapse and consolidation of the left lung. Patient states she is doing okay but has some pain. Nurses states that patient has mentioned hospice. Patient with moderate plural effusion. Will discuss possible tap. Will discuss with patient. Reason For Visit: HCAP PNEUMONIA Physical Exam Vital Signs: Temp Pulse Resp BP Pulse Ox 97.8 F 82 19 101/55 L 89 L 08/12/17 07:33 08/12/17 11:30 08/12/17 11:30 08/12/17 07:33 08/12/17 11:30 Pulse Oximeter Continuous Start: 08/02/17 23: 46 Freq: RTQ4 Status: Active Document 08/12/17 11:30 TPO (Rec: 08/12/17 12:01 TPO [email or web address]) Pulse Oximetry Assessment Oxygen Saturation (92-100) 87 Oxygen Delivery Method AVAP Fraction of Inspired Oxygen (FIO2) 100 Equipment Usage Equipment in Use Continuous SpO2 Machine # 10 Intake & Output 08/11/17 08/12/17 08/13/17 06:59 06:59 06:59 Intake Total 545 1882 Output Total 1150 1600 Balance -605 282 Weight 123.8 kg 124.2 kg General appearance: PRESENT: no acute distress, obese Head exam: PRESENT: normocephalic Eye exam: PRESENT: EOMI. ABSENT: scleral icterus Mouth exam: PRESENT: moist Neck exam: ABSENT: carotid bruit, JVD, lymphadenopathy, thyromegaly Respiratory exam: PRESENT: decreased breath sounds, other - bipap in place. ABSENT: rales, rhonchi, wheezes Cardiovascular exam: PRESENT: RRR. ABSENT: diastolic murmur, rubs, systolic murmur GI/Abdominal exam: PRESENT: normal bowel sounds, soft. ABSENT: distended, guarding, mass, organolmegaly, rebound, tenderness Rectal exam: PRESENT: deferred Extremities exam: PRESENT: full ROM. ABSENT: calf tenderness, clubbing, pedal edema Musculoskeletal exam: PRESENT: other - boot on right foot Neurological exam: PRESENT: alert, awake, oriented to person, oriented to place , oriented to time, oriented to situation, CN II-XII grossly intact. ABSENT: motor sensory deficit Psychiatric exam: PRESENT: appropriate affect, normal mood. ABSENT: homicidal ideation, suicidal ideation Skin exam: PRESENT: dry, intact, warm, other - alopecia. ABSENT: cyanosis, rash Results Laboratory Results: 08/07/17 05:00 08/12/17 05:30 08/12/17 05:30 Creatinine 0.85 Est GFR ( Amer) > 60 Est GFR (Non-Af Amer) > 60 08/09/17 04:52 NT-Pro-B Natriuret Pep 596 Impressions: Venous Doppler Study 08/03/17 00:00 IMPRESSION: NO EVIDENCE DVT OR SVT IN THE LEFT ARM. Chest CT 08/10/17 14:47 IMPRESSION: MODERATE RIGHT PLEURAL EFFUSION. RIGHT LOWER LOBE CONSOLIDATION. EXTENSIVE AIRSPACE DISEASE THROUGHOUT THE RIGHT LUNG. MARKED VOLUME LOSS ON THE LEFT SIDE WITH COMPLETE COLLAPSE AND CONSOLIDATION OF THE LEFT LUNG. Chest X-Ray 08/11/17 00:00 IMPRESSION: Venous access catheter via right subclavian approach, crosses the midline is in the left subclavian vein. Bilateral pleural effusions opacities. Assessment & Plan - Diagnosis (1) Acute on chronic respiratory failure with hypoxia and hypercapnia Is this a current diagnosis for this admission?: Yes Plan: Acute component due to pneumonia, pleural effusion and left lung collapse. Patient bipap dependent. Patient does not want to be intubated. Will continue bipap and see if patient can be tapped on Monday as this may help with her hypoxemia. (2) PNA (pneumonia) Qualifiers: Pneumonia type: due to unspecified organism Laterality: left Lung location: lower lobe of lung Qualified Code(s): J18.1 - Lobar pneumonia, unspecified organism Is this a current diagnosis for this admission?: Yes Plan: Patient with bilateral pneumonia complicated by moderate right pleural effusion and left lung collapse. Continue vancomycin, imipenem and diflucan. (3) Collapse of left lung Plan: Patient does not want chest tube. (4) Pleural effusion Plan: Right moderate pleural effusion. Will discuss possible thoracentesis with patient. (5) Coagulopathy Is this a current diagnosis for this admission?: Yes Plan: Due to coumadin. Now resolved. Will hold coumadin for possible thoracentesis on Monday. (6) Hypernatremia Is this a current diagnosis for this admission?: Yes Plan: Improving. Will give 1 bag of D5W at 50cc/hr. (7) Muscular dystrophy Is this a current diagnosis for this admission?: Yes Plan: Continue supportive care. (8) ANTONELLA (obstructive sleep apnea) Is this a current diagnosis for this admission?: Yes Plan: Patient on bipap. (9) Closed fracture of right distal tibia Qualifiers: Encounter type: initial encounter Fracture alignment: nondisplaced Is this a current diagnosis for this admission?: Yes Plan: Patient in boot. (10) Generalized muscle weakness Is this a current diagnosis for this admission?: Yes (11) Hypercalcemia Is this a current diagnosis for this admission?: Yes Plan: Possibly due to immobilization. Will check PTH and vitamin D level. Will start on sensipar. Hesitant to give fluids due moderate plural effusion. (12) Severe obesity (BMI 35.0-35.9 with comorbidity) Is this a current diagnosis for this admission?: Yes Plan: Patient would benefit from diet modification. It will be difficult for her to participate in physical activity. - Time Time Spent with patient: 15-24 minutes Anticipated discharge: Home, Home with Homehealth, Hospice - Inpatient Certification Medical Necessity: Significant Comorbidiites Make Outpatient Treatment Too Risky , Need Close Monitoring Due to Risk of Patient Decompensation, Need for IV Antibiotics
[2017-08-12 13:42] LABS: INTERNATIONAL RATION (INR) 1.12; PROTHROMBIN TIME 15.2 SEC (11.4-15.4)
[2017-08-12] MEDS: POLYETHYLENE GLYCOL 3350 POWDER 17 GM/1 PACKET PO PRN (15:08)
[2017-08-12] MEDS: CINACALCET HCL 30 MG TABLET PO SCH (18:20)
[2017-08-12] MEDS: ACETAMINOPHEN 325 MG TABLET PO PRN (19:57)
[2017-08-12] MEDS: OXYCODONE HCL IR 5 MG TABLET PO PRN (19:58)
[2017-08-12] MEDS: ATORVASTATIN CALCIUM 20 MG TABLET PO SCH (21:38)
[2017-08-12] MEDS: SENNOSIDES/DOCUSATE 8.6-50 MG 1 EACH TABLET PO SCH (21:39)
[2017-08-13] MEDS: IPRATROPIUM/ALBUTEROL 0.5-2.5 MG/3 ML AMPUL NEB SCH ×6 (00:51→20:31)
[2017-08-13] MEDS: ACETYLCYSTEINE 10% NEB 400 MG/4 ML VIAL NEB SCH ×2 (02:40→07:49)
[2017-08-13] MEDS: LEVALBUTEROL HCL NEB 1.25 MG/3 ML AMPUL NEB PRN ×2 (02:40→23:58)
[2017-08-13] MEDS: OXYCODONE HCL IR 5 MG TABLET PO PRN (05:30)
[2017-08-13] MEDS: LEVOTHYROXINE SODIUM 0.1 MG TABLET PO SCH (05:31)
[2017-08-13] MEDS: IMIPENEM/CILASTATIN SODIUM 1,000 MG in NORMAL SALINE 250 ML IV SCH ×4 (05:34→23:43)
[2017-08-13 05:54] LABS: HEMATOCRIT 39.5 % (36.0-47.0); HEMOGLOBIN 12.7 g/dL (12.0-15.5); MEAN CORPUSCULAR HGB CONC 32.1 g/dL (32.0-36.0); MEAN CORPUSCULAR VOLUME 87 fl (80-97); PLATELET COUNT 322 10^3/uL (150-450); RED BLOOD COUNT 4.53 10^6/uL (3.72-5.28); RED CELL DISTRIBUTION WIDTH 16.7 % (11.5-14.0); WHITE BLOOD COUNT 14.1 10^3/uL (4.0-10.5)
[2017-08-13 06:25] LABS: ABSOLUTE LYMPHOCYTES# (MANUAL) 1.7 10^3/uL (0.5-4.7); ABSOLUTE MONOCYTES # (MANUAL) 0.8 10^3/uL (0.1-1.4); BAND NEUTROPHILS % (MANUAL) 2 % (3-5); BASOPHILS % (MANUAL) 0 % (0-2); EOSINOPHILS % (MANUAL) 4 % (0-6); LYMPHOCYTES % (MANUAL) 12 % (13-45); MONOCYTES % (MANUAL) 6 % (3-13); SEGMENTED NEUTROPHILS % (MAN) 76 % (42-78); TOTAL CELLS COUNTED 100
[2017-08-13 06:27] LABS: TOXIC GRANULATION SLIGHT; TOXIC VACUOLATION PRESENT
[2017-08-13 06:28] LABS: ANION GAP 7 (5-19); BLOOD UREA NITROGEN 17 mg/dL (7-20); CALCIUM 9.2 mg/dL (8.4-10.2); CARBON DIOXIDE 39 mmol/L (22-30); CHLORIDE 94 mmol/L (98-107); GLUCOSE 119 mg/dL (75-110); MAGNESIUM 1.8 mg/dL (1.6-2.3); PHOSPHORUS 2.7 mg/dL (2.5-4.5); PLATELET COMMENT ADEQUATE; POIKILOCYTOSIS 1+; POLYCHROMASIA SLIGHT; POTASSIUM 3.1 mmol/L (3.6-5.0); SODIUM 139.9 mmol/L (137-145)
[2017-08-13 06:29] LABS: INTERNATIONAL RATION (INR) 1.08; PROTHROMBIN TIME 14.8 SEC (11.4-15.4)
[2017-08-13] MEDS ORDERED: POTASSIUM CHLORIDE 10 MEQ TABLET.SA PO ONE (07:00)
[2017-08-13 08:45] LABS: VANCOMYCIN,TROUGH 25.4 ug/mL (5.0-20.0)
[2017-08-13] MEDS: VANCOMYCIN HCL 1,500 MG in DEXTROSE 5%-WATER 250 ML IV SCH (08:55)
[2017-08-13] MEDS ORDERED: POTASSIUM CHLORIDE 10 MEQ TABLET.SA PO SCH (10:00)
[2017-08-13] MEDS: LORATADINE 10 MG TABLET PO SCH (11:15)
[2017-08-13] MEDS: PREGABALIN 100 MG CAPSULE PO SCH ×3 (11:15→17:31)
[2017-08-13] MEDS: DOCUSATE SODIUM 100 MG CAPSULE PO SCH ×2 (11:15→17:31)
[2017-08-13] MEDS: OXYCODONE HCL SR 10 MG TABLET PO SCH ×2 (11:15→21:19)
[2017-08-13] MEDS: POTASSIUM CHLORIDE 20 MEQ/15 ML UDCUP PO SCH ×2 (11:15→21:19)
[2017-08-13] MEDS: FLUCONAZOLE 200 MG/NS RTU 100 ML IV SCH (11:51)
[2017-08-13] MEDS ORDERED: MORPHINE SULFATE 10 MG/ML INJ ONE ×3 (12:59→20:40)
[2017-08-13] MEDS: CINACALCET HCL 30 MG TABLET PO SCH (17:31)
[2017-08-13] MEDS: ACETYLCYSTEINE 20% SOLN 800 MG/4 ML VIAL.NEB NEB SCH (20:31)
[2017-08-13] MEDS: ATORVASTATIN CALCIUM 20 MG TABLET PO SCH (21:19)
[2017-08-13] MEDS: SENNOSIDES/DOCUSATE 8.6-50 MG 1 EACH TABLET PO SCH (21:19)
[2017-08-13] MEDS ORDERED: MORPHINE SULFATE 10 MG/ML INJ IV PRN (22:57)
[2017-08-13] MEDS ORDERED: LORAZEPAM INJ 2 MG/1 ML VIAL IV PRN (23:43)
[2017-08-14] MEDS: IPRATROPIUM/ALBUTEROL 0.5-2.5 MG/3 ML AMPUL NEB SCH ×4 (00:04→11:43)
[2017-08-14] MEDS: MORPHINE SULFATE 10 MG/ML INJ IV PRN ×5 (01:59→20:29)
--- NOTE | 2017-08-14 07:58 | RADIOLOGY REPORT (SQ) ---
EXAM DESCRIPTION: U/S CHEST COMPLETED DATE/TIME: 08/14/2017 1:07 am REASON FOR STUDY: right side pleural effusion (moderate) hypoxia COMPARISON: Chest CT dated 08/10/2017. LIMITATIONS: Patient on the left lateral position. Patient on CPAP during procedure. PROCEDURE: Procedure, risks, benefit, and alternative explained to patient who then gave written con sent. The posterior right chest wall was marked using ultrasound guidance. A time-out was called fo r correct marking verification. Chest prepped and draped using sterile technique. Local anesthesia a chieved using 7 ml of 1% lidocaine injection. A 6fr Safe-T- Centesis set was introduced into the rig ht posterior pleural space under direct ultrasound visualization. Scant Fluid was aspirated. Cathet er was repositioned several times. Unable to collect enough fluid for therapeutic or diagnostic purp oses. The catheter was removed and the entry site was covered with sterile bandage. No immediate co mplications noted. Images acquired during the procedure were stored on PACS. FINDINGS: ENTRY SITE: Right posterior FLUID VOLUME: 1 cc FLUID ANALYSIS: Luda color OTHER: Unable to obtain an of fluid for analysis IMPRESSION: SUCCESSFUL THORACENTESIS USING ULTRASOUND GUIDANCE. COMMENT: Patient medication list reviewed: Yes- Quality ID# [id number]:Eligible professional attests to doc umenting in the medical record they obtained, updated, or reviewed the patient's current medications. Quality ID #[id number]: Final reports for procedures using fluoroscopy that document radiation exposure jeff kev, or exposure time and number of fluorographic images (if radiation exposure indices are not avail able) TECHNICAL DOCUMENTATION: JOB ID: [id number] New [employer]- All Rights Reserved
[2017-08-14] MEDS ORDERED: VANCOMYCIN HCL 750 MG in DEXTROSE 5%-WATER 250 ML IV SCH (08:00)
[2017-08-14] MEDS: ACETYLCYSTEINE 20% SOLN 800 MG/4 ML VIAL.NEB NEB SCH (08:03)
--- NOTE | 2017-08-14 16:25 | PDOC PROGRESS REPORT ---
Subjective Progress Note for:: 08/13/17 Subjective:: Patient with muscular dystrophy bipap dependent now with worsening pneumonia and with collapse and consolidation of the left lung. Patient is having increased difficulty breathing. Patient is agreeable to attempt thoracentesis. Patient would like her family here to talk about changing her CODE STATUS for measures only. Reason For Visit: HCAP PNEUMONIA Physical Exam Vital Signs: Selected Entries 08/13/17 11:37 Temperature 98.3 F Temperature Axillary Source Pulse Rate 84 Respiratory 20 Rate Blood Pressure 112/68 Blood Pressure 82 Mean BP Location Right Arm BP Position Sitting O2 Sat by Pulse 88 L Oximetry Oxygen Delivery Bipap Method General appearance: PRESENT: mild distress, morbidly obese, well-nourished Head exam: PRESENT: atraumatic, normocephalic Eye exam: PRESENT: conjunctiva pink, EOMI, PERRLA. ABSENT: scleral icterus Ear exam: PRESENT: normal external ear exam Mouth exam: PRESENT: moist, tongue midline, other - BiPAP mask in place Neck exam: ABSENT: carotid bruit, JVD, lymphadenopathy, thyromegaly Respiratory exam: PRESENT: decreased breath sounds. ABSENT: rales, rhonchi, wheezes Cardiovascular exam: PRESENT: RRR. ABSENT: diastolic murmur, rubs, systolic murmur Pulses: PRESENT: normal dorsalis pedis pul Vascular exam: PRESENT: normal capillary refill GI/Abdominal exam: PRESENT: normal bowel sounds, soft. ABSENT: distended, guarding, mass, organolmegaly, rebound, tenderness Rectal exam: PRESENT: deferred Extremities exam: PRESENT: full ROM. ABSENT: calf tenderness, clubbing, pedal edema Neurological exam: PRESENT: alert, awake, oriented to person, oriented to place , oriented to time, oriented to situation, CN II-XII grossly intact. ABSENT: motor sensory deficit Psychiatric exam: PRESENT: appropriate affect, normal mood. ABSENT: homicidal ideation, suicidal ideation Skin exam: PRESENT: dry, intact, warm, other - frontal alopecia. ABSENT: cyanosis, rash Results Laboratory Results: 08/13/17 05:15 08/13/17 07:58 08/09/17 04:52 NT-Pro-B Natriuret Pep 596 Impressions: Venous Doppler Study 08/03/17 00:00 IMPRESSION: NO EVIDENCE DVT OR SVT IN THE LEFT ARM. Chest CT 08/10/17 14:47 IMPRESSION: MODERATE RIGHT PLEURAL EFFUSION. RIGHT LOWER LOBE CONSOLIDATION. EXTENSIVE AIRSPACE DISEASE THROUGHOUT THE RIGHT LUNG. MARKED VOLUME LOSS ON THE LEFT SIDE WITH COMPLETE COLLAPSE AND CONSOLIDATION OF THE LEFT LUNG. Chest X-Ray 08/11/17 00:00 IMPRESSION: Venous access catheter via right subclavian approach, crosses the midline is in the left subclavian vein. Bilateral pleural effusions opacities. Chest Ultrasound 08/13/17 06:00 IMPRESSION: SUCCESSFUL THORACENTESIS USING ULTRASOUND GUIDANCE. Assessment & Plan - Diagnosis (1) Acute on chronic respiratory failure with hypoxia and hypercapnia Is this a current diagnosis for this admission?: Yes Plan: Acute component due to pneumonia, pleural effusion and left lung collapse. Patient bipap dependent. Patient does not want to be intubated. Efforts were made to contact the large pleural effusion however it was unsuccessful. Patient does not want a chest tube. Following this patient has decided to be comfort measures only. (2) PNA (pneumonia) Qualifiers: Pneumonia type: due to unspecified organism Laterality: left Lung location: lower lobe of lung Qualified Code(s): J18.1 - Lobar pneumonia, unspecified organism Is this a current diagnosis for this admission?: Yes Plan: Patient with bilateral pneumonia complicated by moderate right pleural effusion and left lung collapse. Patient is currently comfort measures and all antibiotic and fungus have been discontinued. (3) Collapse of left lung Plan: Patient does not want chest tube. Patient is currently comfort measures only. (4) Pleural effusion Plan: Right moderate pleural effusion. Centesis was attempted however was unsuccessful. Patient is currently comfort measures only. (5) Coagulopathy Is this a current diagnosis for this admission?: Yes Plan: Due to coumadin. Now resolved. Coumadin held for thoracentesis however patient is now comfort measures only therefore medication would not be resumed. (6) Hypernatremia Is this a current diagnosis for this admission?: Yes Plan: Resolved. (7) Muscular dystrophy Is this a current diagnosis for this admission?: Yes Plan: Continue supportive care. (8) ANTONELLA (obstructive sleep apnea) Is this a current diagnosis for this admission?: Yes Plan: Patient is BiPAP dependent. (9) Closed fracture of right distal tibia Qualifiers: Encounter type: initial encounter Fracture alignment: nondisplaced Is this a current diagnosis for this admission?: Yes Plan: Patient in boot. Continue pain management. (10) Generalized muscle weakness Is this a current diagnosis for this admission?: Yes (11) Hypercalcemia Is this a current diagnosis for this admission?: Yes Plan: Possibly due to immobilization. Patient with what appears to be primary hyperparathyroidism as her PTH is elevated at 167.7. Patient calcium did improve with fluids however patient has decided to be comfort measures only. Sensipar will be discontinued and no further workup will be completed. (12) Severe obesity (BMI 35.0-35.9 with comorbidity) Is this a current diagnosis for this admission?: Yes Plan: Patient is currently comfort measures only. - Time Time Spent with patient: Less than 15 minutes Anticipated discharge: Hospice Within: Other
--- NOTE | 2017-08-14 16:32 | PDOC PROGRESS REPORT ---
Subjective Progress Note for:: 08/14/17 Subjective:: Patient with muscular dystrophy bipap dependent now with worsening pneumonia and with collapse and consolidation of the left lung. Patient is having increased difficulty breathing. Will to remove fluid with thoracentesis. She currently BiPAP dependent but still hypoxic. Patient was made comfort measures only on 08/13/2017. Patient states she is comfortable. Reason For Visit: HCAP PNEUMONIA Physical Exam Vital Signs: Temp Pulse Resp BP Pulse Ox 98.5 F 70 24 H 113/58 L 91 L 08/14/17 08:07 08/14/17 14:00 08/14/17 11:43 08/14/17 08:07 08/14/17 11:43 Pulse Oximeter Continuous Start: 08/02/17 23: 46 Freq: RTQ4 Status: Active Document 08/14/17 11:43 [facility] (Rec: 08/14/17 13:33 [facility] [email or web address]) Pulse Oximetry Assessment Oxygen Saturation (92-100) 90 Oxygen Delivery Method Bi-pap Fraction of Inspired Oxygen (FIO2) 100 Equipment Usage Equipment in Use Continuous SpO2 Machine # 10 Intake & Output 08/13/17 08/14/17 08/15/17 06:59 06:59 06:59 Intake Total 2850 110 Output Total 1150 350 Balance 1700 -240 Weight 129.4 kg 129.9 kg General appearance: PRESENT: mild distress, morbidly obese Head exam: PRESENT: atraumatic, normocephalic Eye exam: PRESENT: conjunctiva pink, EOMI, PERRLA. ABSENT: scleral icterus Ear exam: PRESENT: normal external ear exam Mouth exam: PRESENT: moist, tongue midline Neck exam: ABSENT: carotid bruit, JVD, lymphadenopathy, thyromegaly Respiratory exam: PRESENT: clear to auscultation jomar. ABSENT: rales, rhonchi, wheezes Cardiovascular exam: PRESENT: RRR. ABSENT: diastolic murmur, rubs, systolic murmur Pulses: PRESENT: normal dorsalis pedis pul Vascular exam: PRESENT: normal capillary refill GI/Abdominal exam: PRESENT: normal bowel sounds, soft. ABSENT: distended, guarding, mass, organolmegaly, rebound, tenderness Rectal exam: PRESENT: deferred Extremities exam: PRESENT: full ROM. ABSENT: calf tenderness, clubbing, pedal edema Neurological exam: PRESENT: alert, awake, oriented to person, oriented to place , oriented to time, oriented to situation, CN II-XII grossly intact. ABSENT: motor sensory deficit Psychiatric exam: PRESENT: appropriate affect, normal mood. ABSENT: homicidal ideation, suicidal ideation Skin exam: PRESENT: dry, intact, warm. ABSENT: cyanosis, rash Results Laboratory Results: 08/13/17 05:15 08/13/17 07:58 08/09/17 04:52 NT-Pro-B Natriuret Pep 596 Impressions: Venous Doppler Study 08/03/17 00:00 IMPRESSION: NO EVIDENCE DVT OR SVT IN THE LEFT ARM. Chest CT 08/10/17 14:47 IMPRESSION: MODERATE RIGHT PLEURAL EFFUSION. RIGHT LOWER LOBE CONSOLIDATION. EXTENSIVE AIRSPACE DISEASE THROUGHOUT THE RIGHT LUNG. MARKED VOLUME LOSS ON THE LEFT SIDE WITH COMPLETE COLLAPSE AND CONSOLIDATION OF THE LEFT LUNG. Chest X-Ray 08/11/17 00:00 IMPRESSION: Venous access catheter via right subclavian approach, crosses the midline is in the left subclavian vein. Bilateral pleural effusions opacities. Chest Ultrasound 08/13/17 06:00 IMPRESSION: SUCCESSFUL THORACENTESIS USING ULTRASOUND GUIDANCE. Assessment & Plan - Diagnosis (1) Acute on chronic respiratory failure with hypoxia and hypercapnia Is this a current diagnosis for this admission?: Yes Plan: Acute component due to pneumonia, pleural effusion and left lung collapse. Patient bipap dependent. Patient does not want to be intubated. Efforts were made to contact the large pleural effusion however it was unsuccessful. Patient does not want a chest tube. Following this patient has decided to be comfort measures only. Despite being comfort measures only patient still continues to use the BiPAP. When patient is ready will transition to nasal cannula. Hospice care consulted. (2) PNA (pneumonia) Qualifiers: Pneumonia type: due to unspecified organism Laterality: left Lung location: lower lobe of lung Qualified Code(s): J18.1 - Lobar pneumonia, unspecified organism Is this a current diagnosis for this admission?: Yes Plan: Patient with bilateral pneumonia complicated by moderate right pleural effusion and left lung collapse. All therapy discontinued as patient is comfort measures only. (3) Collapse of left lung Plan: Patient does not want chest tube. Patient is currently comfort measures only. (4) Pleural effusion Plan: Right moderate pleural effusion. Thoracentesis was attempted on 08/13 however was unsuccessful. Patient subsequently made herself comfort measures only. (5) Coagulopathy Is this a current diagnosis for this admission?: Yes Plan: Due to coumadin. Now resolved. Coumadin held for thoracentesis however patient is now comfort measures only therefore medication would not be resumed. (6) Hypernatremia Is this a current diagnosis for this admission?: Yes Plan: Resolved. (7) Muscular dystrophy Is this a current diagnosis for this admission?: Yes Plan: Continue supportive care. (8) ANTONELLA (obstructive sleep apnea) Is this a current diagnosis for this admission?: Yes Plan: Patient is BiPAP dependent. (9) Closed fracture of right distal tibia Qualifiers: Encounter type: initial encounter Fracture alignment: nondisplaced Is this a current diagnosis for this admission?: Yes Plan: Patient in boot. Continue pain management. (10) Generalized muscle weakness Is this a current diagnosis for this admission?: Yes (11) Hypercalcemia Is this a current diagnosis for this admission?: Yes Plan: Possibly due to immobilization. Patient with what appears to be primary hyperparathyroidism as her PTH is elevated at 167.7. Patient calcium did improve with fluids however patient has decided to be comfort measures only. No further workup will be completed. (12) Severe obesity (BMI 35.0-35.9 with comorbidity) Is this a current diagnosis for this admission?: Yes Plan: Patient is currently comfort measures only. - Time Time Spent with patient: Less than 15 minutes Anticipated discharge: Hospice
[2017-08-14] MEDS: LORAZEPAM INJ 2 MG/1 ML VIAL IV PRN ×2 (17:34→22:11)
--- NOTE | 2017-08-14 23:33 | Palliative Consultation Report ---
Consultation From:: ANH WELCH Consult Reason: acute/chronic resp failure - HPI HPI: Palliative Care Consult Visit 08/14/17 4:50- 5:30 pm Appreciate PC consult for this very unfortunate 57 year old woman who suffers with muscular dystrophy. Patient has been admitted with severe respiratory distress due to pneumonia, pleural effusion and collapse of left lung. She also has pain from a fracture of her right tibia. She has decided to be comfort care only. Attempts were made unsuccessfully to remove pleural fluid. SHe does not wasnt chest tube and does not want intubation. She has opted for comfort measures only and DNR. Mrs. Washington is on Bipap and she wants to continue that. She desaturates quickly with removal of the bipap, so transfer to hospice care center is not possible. She cannot be cared for at home. Patient remains alert and oriented. She says she is fearful of having pain and a little anxious about impending . She agreed to ask for morphine and is able to press call carlos. She also agreed to lorazepam to help her relax. In consultation with nurse caring for her, she said patients mother cannot come to see her because of the snow which is lingering on her street. She also tells me patient has refused lorazepam when offered earlier in the day. She will try again to give her a dose. Onset: Just prior to arrival Onset/Duration: Gradual Quality of Pain: Achy Severity: Moderate Pain Level: 2 Associated Symptoms: Chest pain, Shortness of breath Exacerbated by: Movement Past Medical History(Consults) - General Information Source: Patient, [facility] Records Home Medications: Atorvastatin Calcium [Lipitor 20 mg Tablet] 20 mg PO QHS 08/03/17 Levothyroxine Sodium [Synthroid 0.1 mg Tablet] 0.1 mg PO DAILY 08/03/17 Loratadine [Claritin 10 mg Tablet] 10 mg PO DAILY 08/03/17 Warfarin Sodium [Coumadin 5 mg Tablet] 5 mg PO MOTUTHFRSA@219908/03/17 Warfarin Sodium [Coumadin 7.5 mg Tablet] 7.5 mg PO SUWE@219908/03/17 Allergies/Adverse Reactions: No Known Allergies Allergy (Verified 10/22/14 04:46) - Social History Lives with: Family Family History: Other - Brother and niece with muscular dystrophy Parental Family History Reviewed: No Children Family History Reviewed: No Sibling(s) Family History Reviewed.: No Smoking Status: Never Smoker Frequency of Alcohol Use: None Hx Recreational Drug Use: No Drugs: None Hx Prescription Drug Abuse: No - Past Medical History Cardiac Medical History: Reports: Hx Hypertension - History of stress-induced cardiomyopathy in October 2014 Pulmonary Medical History: Reports: Hx COPD - ON C-PAP PRN, USES IT EXTENSIVELY , Hx Sleep Apnea EENT Medical History: Reports: Ears, Nose Neurological Medical History: Reports: Hx Seizures Endocrine Medical History: Reports: Hx Hypothyroidism Renal/ Medical History: Denies: Hx Peritoneal Dialysis GI Medical History: Reports: Hx Gastroesophageal Reflux Disease. Denies: Hx Crohn's Disease, Hx Ulcerative Colitis Musculoskeltal Medical History: Reports Hx Muscular Dystrophy, Reports Other - Muscular dystrophy Skin Medical History: Reports Hx Eczema Psychiatric Medical History: Denies: Hx Depression Traumatic Medical History: Denies: Hx Traumatic Brain Injury Infectious Medical History: Denies: Hx HIV Hematology: Denies: Hemophilia, Sickle Cell Disease - Surgical History Past Surgical History: Reports: Hx Section - x2, Hx Cholecystectomy, Hx Thyroid Surgery Review of systems Constitutional: Weakness Cardiovascular: Chest pain Respiratory: Cough, Short of breath Musculoskeltal: Leg swelling Ojective:Exam Vital Signs: Temp Pulse Resp BP Pulse Ox 98.3 F 85 19 126/63 H 88 L 08/14/17 19:08 08/14/17 19:08 08/14/17 21:30 08/14/17 19:08 08/14/17 21:30 Pulse Oximeter Continuous Start: 08/02/17 23: 46 Freq: RTQ4 Status: Active Document 08/14/17 21:30 [facility] (Rec: 08/14/17 22:12 [facility] [id number]) Pulse Oximetry Assessment Oxygen Saturation (92-100) 88 Fraction of Inspired Oxygen (FIO2) 100 Equipment Usage Equipment in Use Continuous SpO2 Machine # [id number] Intake & Output 08/13/17 08/14/17 08/15/17 06:59 06:59 06:59 Intake Total 2850 110 40 Output Total 1150 350 350 Balance 1700 -240 -310 Weight 129.4 kg 129.9 kg - General General Appearance: Anxious In distress: Moderate Note:: IN bed with Bipap on, difficult to understand but cannot tolerate Bipap off. Patient states she is a little fearful, but mostly of having pain. She denies fear of dying. She says her family is understanding of her situation. She is very alert and aware of all that is going on. SHe wants lights out in her room and quiet. Breath sounds very congested. Respiratory rate is rapid as is heart rate. - Neurological Cognition: Normal Orientation: Alert, Oriented to person, Oriented to place, Oriented to time Speech: Normal Cranial nerves: Normal - Psychological Associated symptoms: Anxious Objective-Diagnostic Laboratory: 08/13/17 05:15 08/13/17 07:58 08/09/17 04:52 NT-Pro-B Natriuret Pep 596 Plan and Recommendation Plan and Recommendation: Emotional support given to patient. I asked her if she wanted me to call her family, but she said no. I left my card in case family visits and wants to talk. Patients worst fear is of having pain. I spoke with nurse about giving morphine on schedule and also giving lorazepam. My recommendation would be to use morphine per MANAGER FINANCIAL REPORTING to give continuous low doses instead of intermittant dosing. Morphine at 1 mg per hour per MANAGER FINANCIAL REPORTING would equate current orders, but be more steady state in her system. Patient has capacity to push bolus dose button for more if needed. I would also suggest scheduling low dose lorazepam to help with anxiety. Nurse said she would suggest to hospitalist. Will visit tomorrow for support. - Time Spent with Patient Time spent with patient: 30 to 40 Minutes
[2017-08-15] MEDS: MORPHINE SULFATE 10 MG/ML INJ IV PRN ×6 (04:45→22:17)
[2017-08-15] MEDS: LORAZEPAM INJ 2 MG/1 ML VIAL IV PRN ×5 (07:44→22:40)
[2017-08-15 19:55] VITALS: BP 102/80
--- NOTE | 2017-08-15 20:14 | PDOC PROGRESS REPORT ---
Subjective Progress Note for:: 08/15/17 Subjective:: Patient with muscular dystrophy bipap dependent now with worsening pneumonia and with collapse and consolidation of the left lung. Patient is having increased difficulty breathing. Will to remove fluid with thoracentesis. She currently BiPAP dependent but still hypoxic. Patient was made comfort measures only on 08/13/2017. Patient resting comfortably. Will request family to bring her BiPAP mask from home which may be more comfortable. Patient being the downgraded to medical floor. Reason For Visit: HCAP PNEUMONIA Physical Exam Vital Signs: Temp Pulse Resp BP Pulse Ox 97.3 F 110 H 22 H 102/80 67 L 08/15/17 19:26 08/15/17 19:26 08/15/17 16:00 08/15/17 19:26 08/15/17 19:26 Pulse Oximeter Continuous Start: 08/02/17 23: 46 Freq: RTQ4 Status: Active Document 08/15/17 16:00 [facility] (Rec: 08/15/17 16:39 [facility] [email or web address]) Pulse Oximetry Assessment Equipment Usage Equipment Standby Continuous SpO2 Machine # 10 Intake & Output 08/14/17 08/15/17 08/16/17 06:59 06:59 06:59 Intake Total 110 480 160 Output Total 350 700 100 Balance -240 -220 60 Weight 129.9 kg 127 kg General appearance: PRESENT: no acute distress, obese Head exam: PRESENT: normocephalic Eye exam: PRESENT: EOMI. ABSENT: scleral icterus Ear exam: PRESENT: normal external ear exam Mouth exam: PRESENT: moist Neck exam: ABSENT: carotid bruit, JVD, lymphadenopathy, thyromegaly Respiratory exam: PRESENT: decreased breath sounds, other - BiPAP mask in place. ABSENT: rales, rhonchi, wheezes Cardiovascular exam: PRESENT: RRR. ABSENT: diastolic murmur, rubs, systolic murmur GI/Abdominal exam: PRESENT: normal bowel sounds, soft. ABSENT: distended, guarding, mass, organolmegaly, rebound, tenderness Rectal exam: PRESENT: deferred Extremities exam: PRESENT: full ROM. ABSENT: calf tenderness, clubbing, pedal edema Musculoskeletal exam: PRESENT: other - Right boot Neurological exam: PRESENT: alert, awake, oriented to person, oriented to place , oriented to time, oriented to situation. ABSENT: motor sensory deficit Psychiatric exam: PRESENT: anxious. ABSENT: homicidal ideation, suicidal ideation Skin exam: PRESENT: dry, intact, warm. ABSENT: cyanosis, rash Results Laboratory Results: 08/13/17 05:15 08/13/17 07:58 08/09/17 04:52 NT-Pro-B Natriuret Pep 596 Impressions: Venous Doppler Study 08/03/17 00:00 IMPRESSION: NO EVIDENCE DVT OR SVT IN THE LEFT ARM. Chest CT 08/10/17 14:47 IMPRESSION: MODERATE RIGHT PLEURAL EFFUSION. RIGHT LOWER LOBE CONSOLIDATION. EXTENSIVE AIRSPACE DISEASE THROUGHOUT THE RIGHT LUNG. MARKED VOLUME LOSS ON THE LEFT SIDE WITH COMPLETE COLLAPSE AND CONSOLIDATION OF THE LEFT LUNG. Chest X-Ray 08/11/17 00:00 IMPRESSION: Venous access catheter via right subclavian approach, crosses the midline is in the left subclavian vein. Bilateral pleural effusions opacities. Chest Ultrasound 08/13/17 06:00 IMPRESSION: SUCCESSFUL THORACENTESIS USING ULTRASOUND GUIDANCE. Assessment & Plan - Diagnosis (1) Acute on chronic respiratory failure with hypoxia and hypercapnia Is this a current diagnosis for this admission?: Yes Plan: Acute component due to pneumonia, pleural effusion and left lung collapse. Patient bipap dependent. Patient does not want to be intubated. Efforts were made to contact the large pleural effusion however it was unsuccessful. Patient does not want a chest tube. Following this patient has decided to be comfort measures only. Despite being comfort measures only patient still continues to use the BiPAP. We will request the patient's home BiPAP mask to be brought in. Palliative care nurse following. (2) PNA (pneumonia) Qualifiers: Pneumonia type: due to unspecified organism Laterality: left Lung location: lower lobe of lung Qualified Code(s): J18.1 - Lobar pneumonia, unspecified organism Is this a current diagnosis for this admission?: Yes Plan: Patient with bilateral pneumonia complicated by moderate right pleural effusion and left lung collapse. All therapy discontinued as patient is comfort measures only. (3) Collapse of left lung Plan: Patient does not want chest tube. Patient is currently comfort measures only. (4) Pleural effusion Plan: Right moderate pleural effusion. Thoracentesis was attempted on 08/13 however was unsuccessful. Patient subsequently made herself comfort measures only. (5) Coagulopathy Is this a current diagnosis for this admission?: Yes Plan: Due to coumadin. Now resolved. Coumadin held for thoracentesis however patient is now comfort measures only therefore medication would not be resumed. (6) Hypernatremia Is this a current diagnosis for this admission?: Yes Plan: Resolved. (7) Muscular dystrophy Is this a current diagnosis for this admission?: Yes Plan: Continue supportive care. (8) ANTONELLA (obstructive sleep apnea) Is this a current diagnosis for this admission?: Yes Plan: Patient is BiPAP dependent. (9) Closed fracture of right distal tibia Qualifiers: Encounter type: initial encounter Fracture alignment: nondisplaced Is this a current diagnosis for this admission?: Yes Plan: Patient in boot. Continue pain management. (10) Generalized muscle weakness Is this a current diagnosis for this admission?: Yes (11) Hypercalcemia Is this a current diagnosis for this admission?: Yes Plan: Possibly due to immobilization. Patient with what appears to be primary hyperparathyroidism as her PTH is elevated at 167.7. Patient calcium did improve with fluids however patient has decided to be comfort measures only. No further workup will be completed. (12) Severe obesity (BMI 35.0-35.9 with comorbidity) Is this a current diagnosis for this admission?: Yes Plan: Patient is currently comfort measures only. (13) Hypokalemia Is this a current diagnosis for this admission?: Yes Plan: Patient was given replacement. At this point no more labs will be followed as patient is comfort measures only. - Time Time Spent with patient: Less than 15 minutes Anticipated discharge: Hospice - Patient is comfort measures only. Patient is being downgraded to a medical floor. Patient did size to be on nasal cannula she can be transitioned to patient hospice otherwise patient will have to remain here while on continuous BiPAP.
--- NOTE | 2017-08-15 23:09 | Progress Note ---
Provider Note Provider Note: Palliative care follow up visit 08/15/17 12:15- 12:30 PM Brief follow up visit with this unfortunate 57 year old lady who has comfort measures only due to her muscular dystrophy and respiratory failure due to pneumonia. In addition she has a fracture of her right leg which is also uncomfortable. She is currently still using her Bipap and receiving her morphine prn. She has not requested the morphine as often as she was yesterday. I had suggested Morphine GUEST SERVICES DIRECTOR to make sure she gets meds when she needs it, but this was not ordered. She is getting lorazepam to hlep with the anxiety she was having.. Her breathing is shallow and rapid, with respiratory rate in 30's and pulse in 90's. Skin warm and dry with no noted cyanosis. Difficult to understand her conversation due to weakness and Bipapa mask. No upper respiratory secretions or oral secretions bothering patient at time of my visit. Patient awakens to talk with em but doesnt want to converse much. She has requested that food not be brought in because she cannot tolerate being off Bipap to eat. She wants to visit with her mother when she can come to hospital. Moving patient to hospice care center is impossible due to her inabiity to breathe without Bipap even for a few minutes. Family not at hospital while I was there. I checked several times. Again, I would suggest GUEST SERVICES DIRECTOR pump for pain to help patients maintain comfort as she doent ask for meds but was moaning in her bed at one time when I went by to check on her. Will follow.
[2017-08-16] MEDS: MORPHINE SULFATE 10 MG/ML INJ IV PRN ×3 (00:14→01:19)
[2017-08-16] MEDS ORDERED: MORPHINE SULFATE 10 MG/ML INJ IV PRN (00:28)
[2017-08-16] MEDS ORDERED: LORAZEPAM INJ 2 MG/1 ML VIAL IV PRN (00:48)
--- NOTE | 2017-08-16 08:43 | Death Summary ---
Summary Date : 08/16/17 Time of :: 01:40 Autopsy: No Resuscitation Status: Comfort Measures Only - Final Diagnosis (1) Acute on chronic respiratory failure with hypoxia and hypercapnia Is this a current diagnosis for this admission?: Yes (2) PNA (pneumonia) Is this a current diagnosis for this admission?: Yes (5) Coagulopathy Is this a current diagnosis for this admission?: Yes (6) Hypernatremia Is this a current diagnosis for this admission?: Yes (7) Muscular dystrophy Is this a current diagnosis for this admission?: Yes (8) ANTONELLA (obstructive sleep apnea) Is this a current diagnosis for this admission?: Yes (9) Closed fracture of right distal tibia Is this a current diagnosis for this admission?: Yes (10) Generalized muscle weakness Is this a current diagnosis for this admission?: Yes (11) Hypercalcemia Is this a current diagnosis for this admission?: Yes (12) Severe obesity (BMI 35.0-35.9 with comorbidity) Is this a current diagnosis for this admission?: Yes (13) Hypokalemia Is this a current diagnosis for this admission?: Yes Hospital Course:: Patient had a history of muscular dystrophy, chronic hypoxic respiratory failure on home O2 and nightly CPAP, obstructive sleep apnea, hypertension, chronic lower back pain, pulmonary embolus on chronic Coumadin who was admitted for healthcare associated pneumonia that was later complicated by right moderate pleural effusion and left sided lung collapse. Patient was on antibiotics and aggressive pulmonary toilet however not improving due to the pleural effusion and lung collapse. Patient did not want a chest tube nor does she want to be intubated. Patient had unsuccessful right-sided thoracentesis. Patient was on continuous BiPAP and not able to maintain her sats. Patient decided to make herself comfort measures only after consulting with her mom and sister. Palliative care was consulted. Patient was placed on morphine and Ativan. Doses were adjusted to keep patient comfortable. Patient at 1:40 AM on 08/16/2017 due to complications from her complicated pneumonia resulting in respiratory failure. Patient during the pigment pumper and certificate was completed by the lvn.
[2017-08-16] MEDS ORDERED: SCOPOLAMINE HYDROBROMIDE 1.5 MG PATCH.TD72 TD SCH (10:00)
== END 2017-08-16 03:25 | disposition expired | DRG 189 ==
LOC: ER 20:38 → EH 23:35 → 3S 08-03 01:42
PROVIDERS: ADMIT Family Medicine; ATTEND Family Medicine
PROC: 5A09557 Assistance with Respiratory Ventilation, Greater than 96 Consecutive Hours, Continuous Positive Airway Pressure (ICD-10-PCS; principal; 2017-08-03)
PROC: 02HV33Z Insertion of Infusion Device into Superior Vena Cava, Percutaneous Approach (ICD-10-PCS; 2017-08-11)
PROC: 0W993ZZ Drainage of Right Pleural Cavity, Percutaneous Approach (ICD-10-PCS; 2017-08-14)
DX: J96.22 Acute and chronic respiratory failure with hypercapnia (principal); J18.1 Lobar pneumonia, unspecified organism; E87.0 Hyperosmolality and hypernatremia; Z68.43 Body mass index [BMI] 50.0-59.9, adult; J90 Pleural effusion, not elsewhere classified; J98.11 Atelectasis; J44.0 Chronic obstructive pulmonary disease with (acute) lower respiratory infection; L03.114 Cellulitis of left upper limb; Z51.5 Encounter for palliative care; Z66 Do not resuscitate; D68.9 Coagulation defect, unspecified; G71.0 Muscular dystrophy; S82.224D Nondisplaced transverse fracture of shaft of right tibia, subsequent encounter for closed fracture with routine healing; S82.831D Other fracture of upper and lower end of right fibula, subsequent encounter for closed fracture with routine healing; S00.81XD Abrasion of other part of head, subsequent encounter; J96.21 Acute and chronic respiratory failure with hypoxia; G47.33 Obstructive sleep apnea (adult) (pediatric); E83.52 Hypercalcemia; E87.6 Hypokalemia; I10 Essential (primary) hypertension; E66.9 Obesity, unspecified; M54.5 Low back pain; G89.29 Other chronic pain; E03.9 Hypothyroidism, unspecified; K21.9 Gastro-esophageal reflux disease without esophagitis; Z86.711 Personal history of pulmonary embolism; Z79.01 Long term (current) use of anticoagulants; Z79.899 Other long term (current) drug therapy; Z99.81 Dependence on supplemental oxygen; Z90.49 Acquired absence of other specified parts of digestive tract; Z87.891 Personal history of nicotine dependence
CPT/HCPCS: 36415; 36600; 71010; 71045; 71250; 76604; 80048; 80053; 80202; 81001; 82272; 82550; 82565; 82652; 82803; 83735; 83880; 83970; 84100; 84439; 84443; 85025; 85610; 85730; 87040; 87070; 87086; 87205; 93005; 93010; 93306; 93971; 94640; 94660; 94667; 94668; 94762; 99285; C1751; J0743; J1450; J1642; J1940; J2060; J2270; J2543; J3370; J3490; J7040; J7050; J7060; J7620; L4386